=== PATIENT | female | born 1985 ===

== ENCOUNTER → 2017-09-09 | Outpatient (CLI) | payer SELFPAY ==
--- NOTE | 2017-09-09 14:31 | Diagnostic Imaging Report ---
INDICATION: anatomy survey. TECHNIQUE: Multiple real-time grayscale images were obtained over the gravid uterus. COMPARISON: None FINDINGS: The fetus is in vertex presentation. Placenta is posterior and fundal in location. There is no previa or abruption. anatomy survey was performed and the following structures were visualized and normal: Cerebral ventricles, cerebellum, cisterna magna, four-chamber heart, bladder, spine, and stomach. There is mild prominence of bilateral renal pelves. cardiac activity is seen at rate of 153 beats per minute. Biometrical measurements are as follows: Biparietal 6.5 cm, age 26 weeks 1 days. Head circumference 23.3 cm, age 25 weeks 3 days. Abdominal circumference 21.1 cm, age 25 weeks 5 days. Femur length 4.6 cm, age 25 weeks 2 days. Sonographic estimate age: 25 weeks 5 days. Sonographic estimated date of delivery: 12/18/17. Estimated Weight: 814 gm (+/- 119 gm). LMP percentile: 98%. heart rate: 153 beats per minute. number: 1 of 1. IMPRESSION: 1. Single live intrauterine . 2. anatomy survey is normal with the exception of mild prominence of the bilateral renal pelves. This may be physiologic. Short-term followup ultrasound for reassessment is advised. Dictated by: Dictated on workstation # [id number]
== END ==
LOC: RAD 10:13
PROVIDERS: ATTEND Family Medicine
DX: Z36.89 Encounter for other specified antenatal screening (principal); Z3A.25 25 weeks gestation of pregnancy
CPT/HCPCS: 76805

== ENCOUNTER 2017-11-17 06:56 | Inpatient (IN) | payer OTHER ==
[2017-11-17] VITALS (11 sets, daily range): BP systolic 106–125; BP diastolic 63–87
[~2017-11-17] VITALS: Ht 154.9 cm; Wt 63.0 kg
[2017-11-17] MEDS ORDERED: OXYTOCIN/NORMAL SALINE 500 ML IV ONE ×2 (07:49→08:50)
[2017-11-17] MEDS ORDERED: WITCH HAZEL(TUCKS) 40 EA JAR TOP PRN (08:45)
[2017-11-17] MEDS ORDERED: TETANUS,DIPTH,PERTUSS P/F (BOOSTRIX) 0.5 ML VIAL IM ONE (08:45)
[2017-11-17] MEDS ORDERED: BENZOCAINE/MENTHOL (DERMOPLAST) 56 ML CAN TP PRN (08:45)
[2017-11-17] MEDS ORDERED: IBUPROFEN 600 MG (MOTRIN) TAB PO ONE (08:50)
--- NOTE | 2017-11-17 08:53 | History & Physical-OB ---
OB - Chief Complaint & HPI Date/Time Date of Admission: Date of Admission: 11/17/17 Time Seen by Provider: 08:00 Chief Complaint/History OB-Reason for Admission/Chief: Labor Hx : 6 Hx Para: 4 Expected Date of Delivery: Dec 18, 2017 Gestational Age in Weeks: 35 Gestational Age in Days: 4 Other reason for admission: Pt presented to L&D at 35w4d. Pt reports contractions started last night, continued yoana all night. Denies LOF or vaginal bleeding. On presentation to L&D pt was complete w/ bulging bag. Unknown GBS status. care otherwise unremarkable. Allergies and Home Medications Allergies Coded Allergies: No Known Drug Allergies (Unverified , 11/17/17) Patient Home Medication List Home Medication List Reviewed: Yes OB - History Hx of Present Care: Yes Ultrasounds: Normal mid trimester US Obstetrical Complications: None Medical Complications: None Information Induced Hypertension: No Maternal Gestational Diabetes: No Hemorrhage: No Obstetrical History Hx : 6 Hx Para: 4 Hx # Term Pregnancies: 4 Hx Termination: No Hx Total # of Abortions (Spona: 1 Hx Multiple Gestation: No Hx Ectopic : No Hx Stillbirth: No Hx Complication: No Hx Induced Hypertens: No Hx Maternal Gestational Diabet: No Hx Hemorrhage: No Delivery History Hx Dystocia: No Hx Forceps Assisted Delivery: No Hx Vacuum Extraction Assisted: No Hx Placenta Abnormality: No Hx Distress: No Hx Large For Gestational Age I: No Hx Small for Gestational Age I: No Hx Section: No Hx Vaginal Delivery Post C-Sec: No Hx Blood Disorders: No Adverse Rxn to Tranfusion: No Patient Past Medical History Hx of post- depression Social History/Family History HIV/AIDS: No Recent Infectious Disease Expo: No Sexually Transmitted Disease: No Alcohol Use: Denies Use Recreational Drug Use: No Immunizations Rubella: immune RPR/VDRL: Negative GBS Status: Unknown HBsAG: Negative OB - Admission Exam Physical Exam Vitals: Vital Signs 11/17/17 08:40 Temp 97.0 Pulse 88 Resp 18 B/P (MAP) 125/87 (100) O2 Delivery Room Air Cervical Dilatation: 10cm Effacement: 100% Membranes: Intact Heart Rate: 140's Accelerations: Accelerations Present Decelerations: No Decelerations Contractions on Admission: < 5 Minutes Apart OB - Assessment/Plan/Diagnosis Assessment Assessment: active labor, labor (35w4d) Admission Dx 32yo at 35w4d spontaneous onset of labor GBS Unknown Admission Status: Inpatient Order (span 2 midnights) Reason for Inpatient Admission: Labor and delivery Plan Plan: Expectant Management Other Plan delivery per ADAM Ziegler DO Nov 17, 2017 08:52
--- NOTE | 2017-11-17 09:09 | OB Labor & Delivery Record ---
Vag Delivery Note Vag Delivery Note Date of Delivery: 11/17/17 @ 0813 Preoperative Diagnosis: Kirsty Bingham is a (32 /Para 6 / 4, Gestational Age (wks)35 that presented to L&D in active labor. Postoperative Diagnosis: Same Surgeon: NED RITCHIE Supervisor [place] Repair: None Anesthesia: None Delivery Type: Findings: Male infant, normal placenta, Unknown GBS Viable Male infant, apgars 7/8, weight 5#6 Lacerations: None Intact placenta with 3 vessel cord. No nuchal cord, body cord or shoulder dystocia Estimated Blood Loss: 100 ml Complications: None Condition: Stable Description of Procedure: The patient is a 32 yo G6 now P5 who presented in active labor. She was admitted and informed consent was obtained. Her labor course was remarkable for unknown GBS. She progressed to complete dilatation and began to push. She was then set up for delivery. The 's head was delivered atraumatically in the LOP position. The shoulders and remainder of the 's body were then delivered without difficulty. Upon delivery, the head was held below the level of the perineum and the mouth and nares were bulb suctioned. The cord was doubly clamped and cut by FOB and the was handed off to the pediatric staff. An intact placenta with 3-vessel cord delivered via Hazel and there was found to be minimal bleeding.~ Vigorous fundal massage was performed and the fundus was found to be firm. IV oxytocin was given. Examination of the vagina and perineum revealed a no lacerations. Sponge, instrument and needle counts were correct. Mom and baby were both in stable condition in the labor suite. Vitals - Labs Vital Signs - I&O Vital Signs Date Time Temp Pulse Resp B/P (MAP) Pulse Ox O2 Delivery O2 Flow Rate FiO2 11/17/17 08:40 97.0 88 18 125/87 (100) Room Air NED RITCHIE MD Nov 17, 2017 09:09
--- OUTSIDE RECORDS SUMMARY | 2017-11-17 09:24 | XMS REPORT ---
Author Author ASHLEY WILSON Organization [facility] Address [address] [place] [address] Care Team Providers Care Wagon Driver Salesperson Name Role Phone ASHLEY WILSON Unavailable PROBLEMS Type Condition ICD9-CM Code VSD94-NA Code Onset Dates Condition Status SNOMED Code Problem Dental examination Z01.20 Active 544177695 Problem Periodontitis K05.30 Active 42658070 ALLERGIES No Known Allergies SOCIAL HISTORY Never Assessed PLAN OF CARE Activity Details Follow Up if not improving with pcp Reason: VITAL SIGNS Weight 138.4 lbs 2016-11-30 Temperature 100.7 degrees Fahrenheit 2016-11-30 Heart Rate 92 bpm 2016-11-30 Respiratory Rate 20 2016-11-30 Blood pressure systolic 108 mmHg 2016-11-30 Blood pressure diastolic 64 mmHg 2016-11-30 MEDICATIONS Medication Instructions Dosage Frequency Start Date End Date Duration Status Augmentin 875-125 mg Orally every 12 hrs 1 tablet 12h Nov,Nov 10 day(s) Active RESULTS No Results PROCEDURES Procedure Date Ordered Result Body Site ROCEPHIN 1 GM (IM) November 30, 2016 THER/PROPH/DIAG INJ, SC/IM November 30, 2016 TORADOL (IM) 60 MG/2ML (UP TO 15 MG) November 30, 2016 IMMUNIZATIONS Vaccine Route Administration Date Status ROCEPHIN 1 GM (IM) IM Intramuscular November 30, 2016 Administered TORADOL (IM) 60 MG/2ML (UP TO 15 MG) IM Intramuscular November 30, 2016 Administered
[2017-11-17] MEDS: IBUPROFEN 600 MG (MOTRIN) TAB PO SCH ×3 (09:28→21:21)
[2017-11-17 13:50] LABS: BASOPHILS % (AUTO) 0 % (0-10); EOSINOPHILS # (AUTO) 0.1 10^3/uL (0.0-0.3); EOSINOPHILS % (AUTO) 1 % (0-10); HEMATOCRIT 38 % (35-52); HEMOGLOBIN 12.8 G/DL (11.5-16.0); LYMPHOCYTES % (AUTO) 16 % (12-44); MEAN CORPUSCULAR HEMOGLOBIN 30 PG (25-34); MEAN CORPUSCULAR HGB CONC 34 G/DL (32-36); MEAN CORPUSCULAR VOLUME 89 FL (80-99); MEAN PLATELET VOLUME 11.4 FL (7.4-10.4); MONOCYTES # (AUTO) 0.6 X 10^3 (0.0-1.0); MONOCYTES % (AUTO) 5 % (0-12); NEUTROPHILS % (AUTO) 79 % (42-75); PLATELET COUNT 240 10^3/uL (130-400); RED BLOOD COUNT 4.23 10^6/uL (4.35-5.85); RED CELL DISTRIBUTION WIDTH 13.5 % (10.0-14.5); WHITE BLOOD COUNT 12.7 10^3/uL (4.3-11.0)
[2017-11-17] MEDS ORDERED: CATHETER FLUSH 10 ML SYR IV SCH (14:00)
[2017-11-18] MEDS: IBUPROFEN 600 MG (MOTRIN) TAB PO SCH (03:36)
[2017-11-18 03:37] VITALS: BP 97/63
[2017-11-18 05:30] LABS: BASOPHILS % (AUTO) 0 % (0-10); EOSINOPHILS # (AUTO) 0.2 10^3/uL (0.0-0.3); EOSINOPHILS % (AUTO) 1 % (0-10); HEMATOCRIT 33 % (35-52); HEMOGLOBIN 11.3 G/DL (11.5-16.0); LYMPHOCYTES # (AUTO) 2.4 X 10^3 (1.0-4.0); LYMPHOCYTES % (AUTO) 20 % (12-44); MEAN CORPUSCULAR HEMOGLOBIN 31 PG (25-34); MEAN CORPUSCULAR HGB CONC 34 G/DL (32-36); MEAN CORPUSCULAR VOLUME 89 FL (80-99); MEAN PLATELET VOLUME 11.2 FL (7.4-10.4); MONOCYTES # (AUTO) 0.9 X 10^3 (0.0-1.0); MONOCYTES % (AUTO) 8 % (0-12); NEUTROPHILS # (AUTO) 8.4 X 10^3 (1.8-7.8); NEUTROPHILS % (AUTO) 71 % (42-75); PLATELET COUNT 212 10^3/uL (130-400); RED BLOOD COUNT 3.71 10^6/uL (4.35-5.85); RED CELL DISTRIBUTION WIDTH 13.3 % (10.0-14.5); WHITE BLOOD COUNT 11.9 10^3/uL (4.3-11.0)
[2017-11-18] MEDS ORDERED: PRENATAL VITAMIN 1 EA TAB PO SCH (07:00)
[2017-11-18 08:44] VITALS: BP 106/76
[2017-11-18] MEDS ORDERED: PREN-37 PO (08:48)
--- NOTE | 2017-11-18 09:07 | Discharge Summary ---
Diagnosis/Chief Complaint Date of Admission Nov 17, 2017 at 06:57 Date of Discharge Nov 18, 2017 Admission Diagnosis Admission Diagnosis 32yo at 35w4d spontaneous onset of labor GBS Unknown Discharge Diagnosis 32yo G6 now P5 at 35w4d spontaneous onset of labor s/p precipitous vaginal delivery GBS Unknown Discharge Summary-OBS Procedures None. Discharge Physical Examination Allergies: Coded Allergies: No Known Drug Allergies (Unverified , 11/17/17) Vitals & I&Os Vital Sign - Last 12Hours Date Time Temp Pulse Resp B/P (MAP) Pulse Ox O2 Delivery O2 Flow Rate FiO2 11/18/17 08:44 97.1 72 16 106/76 (86) 99 Room Air General Appearance: Alert, Oriented X3, Cooperative Abdominal: Normal Bowel Sounds (uterus -1) Psych/Mental Status: Mood NL Hospital Course Routine care; baby transferred to [facility] due to RDS Labs Laboratory Tests 11/18/17 05:10: White Blood Count 11.9H, Red Blood Count 3.71L, Hemoglobin 11.3L, Hematocrit 33L , Mean Corpuscular Volume 89, Mean Corpuscular Hemoglobin 31, Mean Corpuscular Hemoglobin Concent 34, Red Cell Distribution Width 13.3, Platelet Count 212, Mean Platelet Volume 11.2H, Neutrophils (%) (Auto) 71, Lymphocytes (%) (Auto) 20 , Monocytes (%) (Auto) 8, Eosinophils (%) (Auto) 1, Basophils (%) (Auto) 0, Neutrophils # (Auto) 8.4H, Lymphocytes # (Auto) 2.4, Monocytes # (Auto) 0.9, Eosinophils # (Auto) 0.2, Basophils # (Auto) 0.0 Discharge Instructions to patient/family Please see electronic discharge instructions given to patient. Discharge Medications Reviewed and agree with Discharge Medication list on patient's Discharge Instruction sheet Clinical Quality Measures DVT/VTE Risk/Contraindication: Risk Factor Score Per Nursin RFS Level Per Nursing on Admit: 1=Low/No VTE PPX Copy Copies To 1: NED RITCHIE MD, LINDA K DO Nov 18, 2017 09:07
[2017-11-18] MEDS ORDERED: IBUP-1773 PO (09:10)
--- NOTE | 2017-11-18 09:12 | Discharge Instructions ---
Discharge Inst-Women's Serv Depart Medications New, Converted or Re-Newed RX: Other (may take over the counter) Follow Up/Instructions Goal/Follow Up: Follow-up with Dr. Sewell in 6 weeks Activity Activity: Activity as Tolerated Nothing Inside Vagina: No Douching, No [place], No Tampons Diet Discharge Diet: No Restrictions Symptoms to Report to : Bleeding Excessive, Pain Increased, Fever Over 101 Degrees F, Vaginal Bleeding Increase, Vaginal Discharge Foul, Shortness of Breath For Any Problems or Questions: Contact Your Physician ADAM SELBY DO Nov 18, 2017 09:12
[2017-11-18] MEDS ORDERED: INFLUENZA TRIvalent 2017-2018 0.5 ML/45 MCG SYR IM ONE (11:05)
== END 2017-11-18 11:05 | disposition home or self-care (01) | DRG 775 ==
LOC: LDRP 06:56 → WSo 06:56 → LDRP 06:57
PROVIDERS: ADMIT Family Medicine; ATTEND Family Medicine
PROC: 10E0XZZ Delivery of Products of Conception, External Approach (ICD-10-PCS; principal; 2017-11-17)
DX: O60.14X0 Preterm labor third trimester with preterm delivery third trimester, not applicable or unspecified (principal); O62.3 Precipitate labor; Z3A.35 35 weeks gestation of pregnancy; Z37.0 Single live birth
CPT/HCPCS: 36415; 85025; 86850; 86900; 86901; 99212

== ENCOUNTER → 2018-07-13 | Outpatient (CLI) | payer OTHER ==
[~2018-07-13] MED LIST: IBUP-1773 PO; PREN-37 PO
--- NOTE | 2018-07-13 16:39 | Diagnostic Imaging Report ---
INDICATION: Second trimester . TECHNIQUE: Multiple real-time grayscale images were obtained over the gravid uterus. COMPARISON: None during this . FINDINGS: A single live intrauterine fetus is seen measuring at 20 weeks 4 days in size by composite measurements. Sonographic EDC is 11/26/2018. The fetus is in cephalic presentation. Amniotic fluid appears normal. Placenta is grade 1 and anterior with no evidence of previa. heart rate is 142 beats per minute. Cervical length is 3.4 cm. Maternal adnexa could not be visualized. survey showed no abnormal findings. Normal-appearing kidneys, bladder, stomach, and intracranial ventricles are noted. Normal-appearing four-chamber heart view and three-vessel cord and cord insertion are noted. Views of the spine were unremarkable. Biometrical measurements are as follows: Biparietal 4.92 cm, age 21 weeks 0 days. Head circumference 17.65 cm, age 20 weeks 1 days. Abdominal circumference 14.96 cm, age 20 weeks 2 days. Femur length 3.33 cm, age 20 weeks 3 days. Sonographic estimate age: 20 weeks 4 days. Sonographic estimated date of delivery: 11/26/18. Estimated Weight: 346 gm (+/- 51 gm). LMP percentile: 8%. heart rate: 142 beats per minute. number: 1 of 1. IMPRESSION: Single live intrauterine fetus measuring 20 weeks 4 days in size as described above with no detectable abnormalities. Dictated by: Dictated on workstation # [id number]
== END ==
LOC: RAD 14:58
PROVIDERS: ATTEND Family Medicine
DX: Z34.82 Encounter for supervision of other normal pregnancy, second trimester (principal); Z3A.20 20 weeks gestation of pregnancy
CPT/HCPCS: 76805

== ENCOUNTER 2018-11-25 23:02 | Inpatient (IN) | payer OTHER ==
[~2018-11-25] VITALS: Ht 160 cm; Wt 78.7 kg
--- NOTE | 2018-11-25 23:10 | NUR ---
Pt arrives ambulatory to unit accompanied by medical social consultant friend, , and child. Pt to room, oriented to call system and surroundings, up supplying u.a, assessments to follow.
[2018-11-25] MEDS ORDERED: LACTATED RINGERS 1,000 ML IV ONE (23:28)
[2018-11-25] MEDS ORDERED: OXYTOCIN/NORMAL SALINE 500 ML IV ONE (23:28)
[2018-11-25] MEDS ORDERED: LACTATED RINGERS 1,000 ML IV SCH (23:59)
[2018-11-26] VITALS (13 sets, daily range): BP systolic 99–122; BP diastolic 46–77
[2018-11-26] MEDS ORDERED: MINERAL OIL CONCENTRATE 99.9% 15 ML UDC TOP PRN
[2018-11-26 00:07] LABS: BASOPHILS % (AUTO) 0 % (0-10); EOSINOPHILS # (AUTO) 0.1 10^3/uL (0.0-0.3); EOSINOPHILS % (AUTO) 1 % (0-10); HEMATOCRIT 34 % (35-52); HEMOGLOBIN 11.3 G/DL (11.5-16.0); LYMPHOCYTES # (AUTO) 2.1 X 10^3 (1.0-4.0); LYMPHOCYTES % (AUTO) 16 % (12-44); MEAN CORPUSCULAR HEMOGLOBIN 29 PG (25-34); MEAN CORPUSCULAR HGB CONC 33 G/DL (32-36); MEAN CORPUSCULAR VOLUME 87 FL (80-99); MEAN PLATELET VOLUME 11.4 FL (7.4-10.4); MONOCYTES # (AUTO) 0.9 X 10^3 (0.0-1.0); MONOCYTES % (AUTO) 7 % (0-12); NEUTROPHILS # (AUTO) 9.5 X 10^3 (1.8-7.8); NEUTROPHILS % (AUTO) 76 % (42-75); PLATELET COUNT 240 10^3/uL (130-400); RED CELL DISTRIBUTION WIDTH 15.4 % (10.0-14.5); WHITE BLOOD COUNT 12.6 10^3/uL (4.3-11.0)
--- NOTE | 2018-11-26 00:10 | History & Physical-OB ---
OB - Chief Complaint & HPI Date/Time Date of Admission: Date of Admission: Date seen by a Provider: Nov 26, 2018 Time Seen by a Provider: 00:05 Chief Complaint/History OB-Reason for Admission/Chief: Onset of Labor Hx : 7 Hx Para: 4115 Expected Date of Delivery: Nov 28, 2018 Gestational Age in Weeks: 39 Gestational Age in Days: 5 Admission Nurse Assessment Rev: Yes History of Labs A+, antibody neg, RI. Hep B/HIV/RPR NR. GC/chlamydia neg. Low TSH, normal free T4 and negative TSI. Penta screen normal/low risk. 1 hour glucola negative. GBS neg. Other Started having contractions closer in the evening, having more discharge all day and some small bleeding. Allergies and Home Medications Allergies Coded Allergies: No Known Drug Allergies (Unverified , 11/17/17) Home Medications Vit/Iron Fumarate/FA 1 Each Tablet, 1 EACH PO DAILY, (Reported) Patient Home Medication List Home Medication List Reviewed: Yes OB - History Hx of Present Care: Yes Ultrasounds: Abnormal US findings (20 week US with EFW 8%, repeat at 26 weeks EFW 34%. Repeat at 37 weeks with nml growth but possibility of cleft lip not able to clearly evaluate.) Obstetrical Complications: Other (History of delivery, on progesterone injections this until 37 weeks) Medical Complications: Other (subclinical hypothyroidism) Information Induced Hypertension: No Maternal Gestational Diabetes: No Hemorrhage: No Obstetrical History Hx : 7 Hx Para: 5 Hx # Term Pregnancies: 4 Hx # Pregnancies: 1 Number of Living Children: 5 Hx Termination: No Hx Total # of Abortions (Spona: 1 Hx Multiple Gestation: No Hx Ectopic : No Hx Stillbirth: No Hx Complication: No Hx Induced Hypertens: No Hx Maternal Gestational Diabet: No Hx Hemorrhage: No Delivery History Hx Dystocia: No Hx Forceps Assisted Delivery: No Hx Vacuum Extraction Assisted: No Hx Placenta Abnormality: No Hx Distress: No Hx Large For Gestational Age I: No Hx Small for Gestational Age I: No Hx Section: No Hx Vaginal Delivery Post C-Sec: No Hx Blood Disorders: No Adverse Rxn to Tranfusion: No Patient Past Medical History Hx of post- depression Social History/Family History HIV/AIDS: No Recent Infectious Disease Expo: No Sexually Transmitted Disease: No Alcohol Use: Denies Use Recreational Drug Use: No Smoking Cessation: Never smoker Immunizations Hepatitis A: No Hepatitis B: No Tetanus Booster (TDap): Less than 5yrs (09/25/2018) Rubella: immune RPR/VDRL: Negative GBS Status: Negative HBsAG: Negative OB - Admission Exam Physical Exam Cervical Dilatation: 7cm Membranes: Intact Heart Rate: 140's Decelerations: No Decelerations Short Term Variability: Present Fdc Variability: Average (6-25) Contractions on Admission: < 5 Minutes Apart OB - Assessment/Plan/Diagnosis Assessment Assessment: active labor Admission Dx Active labor at full term Admission Status: Inpatient Order (span 2 midnights) Reason for Inpatient Admission: Labor, delivery and course Plan Plan: Expectant Management FREDI CASTILLO MD Nov 26, 2018 00:10
[2018-11-26] MEDS ORDERED: LIDOCAINE/EPI 2% 1:200,00 (XYLOCAINE) 10 ML VIAL ONE (01:08)
--- NOTE | 2018-11-26 01:40 | OB Labor & Delivery Record ---
Vag Delivery Note Vag Delivery Note Date of Delivery: 11/26/18 Preoperative Diagnosis: Kirsty Bingham is a 33 /Para 7 / 5, Gestational Age (wks)39with 5 days Postoperative Diagnosis: Same Surgeon: FREDI CASTILLO Anesthesia: None Delivery Type: Spontaneous vaginal Findings: Viable male infant, apgars 9/9, weight 7#4 Lacerations: first degree perineal Intact placenta with 3 vessel cord. No nuchal cord, body cord or shoulder dystocia Estimated Blood Loss: 250 ml Complications: None Condition: Stable Description of Procedure: The patient is a 33 year old female who presented in active labor. She was admitted and informed consent was obtained. Her labor course was unremarkable. She progressed to complete dilatation and began to push. She was then set up for delivery. The infant's head was delivered atraumatically in the ELADIO position. The shoulders and remainder of the 's body were then delivered without difficulty. Upon delivery, the infant was vigorous and placed on maternal abdomen. After a delay the cord was doubly clamped and cut and the was handed off to the pediatric staff. An intact placenta with 3-vessel cord delivered via Hazel and there was found to be minimal bleeding.~ Vigorous fundal massage was performed and the fundus was found to be firm. IV oxytocin was given. Examination of the vagina and perineum revealed a first degree perineal laceration repaired in the usual fashion with 3 -0 rapide suture. Following the repair, sponge, instrument and needle counts were correct. Mom and baby were both in stable condition in the labor suite. Vitals - Labs Labs Laboratory Tests 11/25/18 23:40: White Blood Count 12.6H, Red Blood Count 3.91L, Hemoglobin 11.3L, Hematocrit 34L , Mean Corpuscular Volume 87, Mean Corpuscular Hemoglobin 29, Mean Corpuscular Hemoglobin Concent 33, Red Cell Distribution Width 15.4H, Platelet Count 240, Mean Platelet Volume 11.4H, Neutrophils (%) (Auto) 76H, Lymphocytes (%) (Auto) 16, Monocytes (%) (Auto) 7, Eosinophils (%) (Auto) 1, Basophils (%) (Auto) 0, Neutrophils # (Auto) 9.5H, Lymphocytes # (Auto) 2.1, Monocytes # (Auto) 0.9, Eosinophils # (Auto) 0.1, Basophils # (Auto) 0.0 FREDI CASTILLO MD Nov 26, 2018 01:40
--- OUTSIDE RECORDS SUMMARY | 2018-11-26 01:42 | XMS REPORT ---
Author Author ANNA FREDI Organization [facility] Address [address] [place] [address] Care Team Providers Care Perianesthesia Rn Name Role Phone ANNATORREYFREDI Unavailable PROBLEMS Type Condition ICD9-CM Code TMP01-BF Code Onset Dates Condition Status SNOMED Code Problem Small fetus P05.00 Active 176345871 Problem Missed period N92.6 Active 21343599 Problem Subclinical hyperthyroidism E05.90 Active 492085543 Problem History of delivery, currently O09.219 Active 130421959 Problem Periodontitis K05.30 Active 80976504 Problem care, subsequent in second trimester Z34.82 Active 511253722 ALLERGIES No Information ENCOUNTERS Encounter Location Date Diagnosis [facility] [address] [address] Aug, [facility] [address] [address] Aug, History of delivery, currently O09.219 [facility] [address] [address]26- [address]874 Aug, Small fetus P05.00 ; History of delivery, currently O09.219 ; Second trimester Z34.92 ; 24 weeks gestation of Z3A.24 and Subclinical hyperthyroidism E05.90 [facility] [address] 37[address] Aug, [facility] [address] [address] Aug, History of delivery, currently O09.219 [facility] [address] 96681- 6844 Jul, History of delivery, currently O09.219 ; Second trimester Z34.92 ; 24 weeks gestation of Z3A.24 ; Subclinical hyperthyroidism E05.90 and Small fetus P05.00 [facility] [id number] [place] [address] 09604- 7420 Jul, History of delivery, currently O09.219 [facility] [id number] [place] [address] 09994- 7660 Jul, History of delivery, currently O09.219 [facility] [id number] [place] [address] 84144- 7031 Jun, Subclinical hyperthyroidism E05.90 [facility] [address] 19822- 0035 Jun, Subclinical hyperthyroidism E05.90 [facility] [id number] [place] [address] 30330- 3419 Jun, [facility] [address] 42407- 9[address] Jun, Second trimester Z34.92 ; History of delivery, currently O09.219 ; Subclinical hyperthyroidism E05.90 ; Encounter for immunization Z23 and 20 weeks gestation of Z3A.20 [facility] [id number] [place] [address] 54040- 9392 17 Jun, 2018 History of delivery, currently O09.219 [facility] [id number] [place] [address] 12947- 4114 Jun, [facility] [id number] [place] [address] 76397- 4216 Jun, [facility] [address] 72145- 8604 Jun, [facility] [id number] [place] [address] 89119- 1800 May, Normal in multigravida Z34.80 ; Second trimester Z34.92 ; Low TSH level R79.89 ; 16 weeks gestation of Z3A.16 and History of delivery, currently O09.219 [facility] [address] 11215- 1543 May, [facility] [address] 28189- 6572 May, [facility] [address] 75285- 1241 May, Normal in multigravida Z34.80 [facility] [address] 42590- 2354 Apr, Normal in multigravida Z34.80 [facility] [address] 61885- 7387 Apr, Normal in multigravida Z34.80 and 11 weeks gestation of Z3A.11 [facility] [address] 98797- 0817 Apr, [facility] [address] 60718- 2505 Apr, [facility] [address] [id number] Apr, Dental caries K02.9 [facility] [address] 42915[address] Apr, [facility] [address] 02[address]25 Apr, Oral infection K12.2 and Missed period N92.6 [facility] [address] 05645- 6921 Feb, [facility] [address] 23568- 0480 January, [facility] [address] 31249- 7121 Nov, [facility] [address] [address] Nov, Screening for deficiency anemia Z13.0 [facility] [id number] [place] [address] 83812- 9007 Nov, [facility] [id number] [place] [address] 85002- 4932 Nov, [facility] [id number] [place] [address] 57339- 9618 Nov, care in third trimester Z34.93 and 35 weeks gestation of Z3A.35 [facility] [id number] [place] [address] 62668- 7078 Oct, [facility] [id number] [place] [address] 64091- 1933 Oct, care in third trimester Z34.93 ; Encounter for immunization Z23 and 33 weeks gestation of Z3A.33 [facility] [id number] [place] [address] 37357- 0062 Sep, care in second trimester Z34.92 and 29 weeks gestation of Z3A.29 [facility] [address] [address] Aug, Dental examination Z01.20 [facility] [id number] [place] [address] 89861- 2499 Aug, Dental examination Z01.20 [facility] [id number] [place] [address] 41173- 8735 Aug, Second trimester Z34.92 and 14 weeks gestation of Z3A.14 [facility] [id number] [place] [address] 72360- 7871 Aug, [facility] [address] [place] [address] 37115- 5359 Jul, care in first trimester Z34.91 and Normal in multigravida Z34.80 [facility] [id number] [place] [address] 17904- 5757 Jul, [facility] [id number] [place] [address] 60753- 5886 Jul, [facility] [id number] [place] [address] 64599- 8549 Jun, [facility] [id number] [place] [address] [id number] Jun, Dental examination Z01.20 [facility] [id number] [place] [address] [id number] Jun, Dental examination Z01.20 [facility] [id number] [place] [address] 34564- 7907 January, Dental examination Z01.20 [facility] [id number] [place] [address] 59571- 6461 Dec, Dental examination Z01.20 [facility] [id number] [place] [address] 81441- 2086 Dec, Dental examination Z01.20 [facility] [id number] [place] [address] 00166- 0087 Nov, Dental examination Z01.20 and Periodontitis K05.30 [facility] [id number] [place] [address] 44056- 7153 Nov, Acute mastitis of left breast N61.0 and Acute nonintractable headache, unspecified headache type R51 [facility] [id number] [place] [address] 69280- 1054 Nov, IMMUNIZATIONS No Known Immunizations SOCIAL HISTORY Never Assessed REASON FOR VISIT U/S OB follow up ULTRASOUND WALK-IN. A.BOOKLESS RDMS RVT PLAN OF CARE Activity Details Pending Test Ultrasound : OB F/U (IN-HOUSE) VITAL SIGNS MEDICATIONS Unknown Medications RESULTS No Results PROCEDURES Procedure Date Ordered Result Body Site OB US, FOLLOW-UP, PER FETUS Aug 25, 2018 INSTRUCTIONS MEDICATIONS ADMINISTERED No Known Medications MEDICAL (GENERAL) HISTORY Type Description Date Medical History denies Hospitalization History Anemia 02/2014
--- OUTSIDE RECORDS SUMMARY | 2018-11-26 01:42 | XMS REPORT ---
Author Author ANNA FREDI Organization [facility] Address [address] [place] [address] Care Team Providers Care Roof Tiler Name Role Phone ANNATORREYFREDI Unavailable PROBLEMS Type Condition ICD9-CM Code EMF16-IK Code Onset Dates Condition Status SNOMED Code Problem Small fetus P05.00 Active 215734673 Problem Missed period N92.6 Active 85450374 Problem Subclinical hyperthyroidism E05.90 Active 733724404 Problem History of delivery, currently O09.219 Active 720021294 Problem Periodontitis K05.30 Active 95901852 Problem care, subsequent in second trimester Z34.82 Active 816440309 ALLERGIES No Information ENCOUNTERS Encounter Location Date Diagnosis [facility] [address] 80267- 8782 Aug, [facility] [address] 94878- 3925 Aug, History of delivery, currently O09.219 [facility] [address] 21924- 5023 Jul, History of delivery, currently O09.219 ; Second trimester Z34.92 ; 24 weeks gestation of Z3A.24 ; Subclinical hyperthyroidism E05.90 and Small fetus P05.00 [facility] [facility] [id number] [place] [address] 41308- 0370 15 Jul, 2018 History of delivery, currently O09.219 [facility] [address] 53562- 2490 08 Jul, 2018 History of delivery, currently O09.219 [facility] [address] 17007- 9947 Jun, Subclinical hyperthyroidism E05.90 [facility] [id number] [place] [address] 03901- 9727 Jun, Subclinical hyperthyroidism E05.90 [facility] [id number] [place] [address] 16081- 8785 Jun, [facility] [id number] [place] [address] 27095- 5650 Jun, Second trimester Z34.92 ; History of delivery, currently O09.219 ; Subclinical hyperthyroidism E05.90 ; Encounter for immunization Z23 and 20 weeks gestation of Z3A.20 [facility] [id number] [place] [address] 18539- 2035 Jun, History of delivery, currently O09.219 [facility] [place] [id number] [place] [address] 86816- 6256 Jun, [facility] [id number] [place] [address] 87025- 2494 Jun, [facility] [id number] [place] [address] 64151- 2819 Jun, [facility] [place] [id number] [place] [address] 90452- 6317 May, Normal in multigravida Z34.80 ; Second trimester Z34.92 ; Low TSH level R79.89 ; 16 weeks gestation of Z3A.16 and History of delivery, currently O09.219 [facility] [id number] [place] [address] 69971- 2073 May, [facility] [id number] [place] [address] 61525- 4843 May, [facility] [id number] [place] [address] 64062- 2586 May, Normal in multigravida Z34.80 [facility] [id number] [place] [address] 15222- 5935 Apr, Normal in multigravida Z34.80 [facility] [id number] [place] [address] 85511- 8589 Apr, Normal in multigravida Z34.80 and 11 weeks gestation of Z3A.11 [facility] [id number] [place] [address] 65794- 7956 Apr, [facility] [address] [id number] [place] [address] 78481- 0032 Apr, [facility] [id number] [place] [address] [id number] Apr, Dental caries K02.9 [facility] [id number] [place] [address] 20850- 8108 Apr, [facility] [id number] [place] [address] 07813 -9067 Apr, Oral infection K12.2 and Missed period N92.6 [facility] [id number] [place] [address] 24128- 2829 Feb, [facility] [id number] [place] [address] 90112- 9092 January, [facility] [id number] [place] [address] 56883- 0986 Nov, [facility] [id number] [place] [address] 93540- 4860 Nov, Screening for deficiency anemia Z13.0 [facility] [id number] [place] [address] 61448- 6573 Nov, [facility] [address] 74680- 7960 Nov, [facility] [id number] [place] [address] 60265- 0772 Nov, care in third trimester Z34.93 and 35 weeks gestation of Z3A.35 [facility] [address], [place] [address]- [address]26 Oct, [facility] [id number] [place] [address] 73802- 9731 Oct, care in third trimester Z34.93 ; Encounter for immunization Z23 and 33 weeks gestation of Z3A.33 [place] [address] [place] [address] 76407- 9265 Sep, care in second trimester Z34.92 and 29 weeks gestation of Z3A.29 [place] [id number] [place] [address] 39476- 9098 19 Aug, 2017 Dental examination Z01.20 [place] [id number] [place] [address] 80821- 3251 Aug, Dental examination Z01.20 [facility] [id number] [place] [address] 75200- 4860 Aug, Second trimester Z34.92 and 14 weeks gestation of Z3A.14 [place] [address] [place] [address] 17741- 8297 Aug, [place] [id number] [place] [address] 68531- 3287 Jul, care in first trimester Z34.91 and Normal in multigravida Z34.80 [place] [address] [place] [address] 43515- 6231 Jul, [facility] [address] [place] [address] 69287- 7705 Jul, [facility] [id number] [place] [address] 94962- 9638 Jun, [facility] [address] [id number] Jun, Dental examination Z01.20 [facility] [id number] [id number] Jun, Dental examination Z01.20 [facility] [address] [address] January, Dental examination Z01.20 [facility] [address] [address]- 7950 Dec, Dental examination Z01.20 [facility] [address] [address]31 Dec, Dental examination Z01.20 [place] [address] [address]- 2121 Nov, Dental examination Z01.20 and Periodontitis K05.30 [place] [address], [place] [address]- 5626 Nov, [place] [address], [place] [address]- 6907 Nov, Acute mastitis of left breast N61.0 and Acute nonintractable headache, unspecified headache type R51 IMMUNIZATIONS Vaccine Route Administration Date Status TUAN 275 MG/1.1ML (PT'S OWN) SC Subcutaneous Aug 18, 2018 Administered SOCIAL HISTORY Never Assessed REASON FOR VISIT Injection--tcuppettRN PLAN OF CARE Activity Details Follow Up 1 Week Reason: VITAL SIGNS MEDICATIONS Unknown Medications RESULTS No Results PROCEDURES Procedure Date Ordered Result Body Site TUAN 275 MG/1.1ML (PT'S OWN) Aug 18, 2018 THER/PROPH/DIAG INJ, SC/IM Aug 18, 2018 INSTRUCTIONS MEDICATIONS ADMINISTERED No Known Medications MEDICAL (GENERAL) HISTORY Type Description Date Medical History denies Hospitalization History Anemia 02/2014
--- OUTSIDE RECORDS SUMMARY | 2018-11-26 01:42 | XMS REPORT ---
Author Author ANNA FREDI Organization [facility] Address [address] [place] [address] Care Team Providers Care Vulcanizing Machine Operator Name Role Phone ANNATORREYFREDI Unavailable PROBLEMS Type Condition ICD9-CM Code BZB82-NI Code Onset Dates Condition Status SNOMED Code Problem Small fetus P05.00 Active 371643379 Problem Missed period N92.6 Active 56486900 Problem Subclinical hyperthyroidism E05.90 Active 769908445 Problem History of delivery, currently O09.219 Active 848904172 Problem Periodontitis K05.30 Active 30653122 Problem care, subsequent in second trimester Z34.82 Active 702998822 ALLERGIES No Information ENCOUNTERS Encounter Location Date Diagnosis [facility] [address] [address] -[address]483 Aug, [facility] [address] 87541- 1891 Aug, History of delivery, currently O09.219 [facility] [address] 33737- 4697 Aug, Small fetus P05.00 ; History of delivery, currently O09.219 ; Second trimester Z34.92 ; 24 weeks gestation of Z3A.24 and Subclinical hyperthyroidism E05.90 [facility] [address] 09704- 1344 Aug, [facility] [address] 63222- 7435 Aug, History of delivery, currently O09.219 [facility] [address] 86581- 0929 Jul, History of delivery, currently O09.219 ; Second trimester Z34.92 ; 24 weeks gestation of Z3A.24 ; Subclinical hyperthyroidism E05.90 and Small fetus P05.00 [place] [id number] [place] [address] 44245- 1358 Jul, History of delivery, currently O09.219 [facility] [id number] [place] [address] 31816- 3967 Jul, History of delivery, currently O09.219 [facility] [id number] [place] [address] 54779- 3120 Jun, Subclinical hyperthyroidism E05.90 [place] [address] 05529- 6050 Jun, Subclinical hyperthyroidism E05.90 [place] [id number] [place] [address] 37426- 4157 Jun, [place] [address] 19621- 8608 Jun, Second trimester Z34.92 ; History of delivery, currently O09.219 ; Subclinical hyperthyroidism E05.90 ; Encounter for immunization Z23 and 20 weeks gestation of Z3A.20 [place] [id number] [place] [address] 38840- 7316 17 Jun, 2018 History of delivery, currently O09.219 [place] [address] [id number] [place] [address] 13775- 3699 Jun, [place] [address] [id number] [place] [address] 96427- 1618 Jun, [place] [address] 93063- 9859 Jun, [place] [address] [id number] [place] [address] 95606- 3091 May, Normal in multigravida Z34.80 ; Second trimester Z34.92 ; Low TSH level R79.89 ; 16 weeks gestation of Z3A.16 and History of delivery, currently O09.219 [facility] [address] 77578- 9129 May, [facility] [address] 86069- 9635 May, [facility] [address] 11779- 0729 May, Normal in multigravida Z34.80 [facility] [address] 27817- 8960 Apr, Normal in multigravida Z34.80 [facility] [address] 61973- 2576 Apr, Normal in multigravida Z34.80 and 11 weeks gestation of Z3A.11 [facility] [address] 13223- 3816 Apr, [facility] [address] 73951- 1678 Apr, [facility] [address] [id number] Apr, Dental caries K02.9 [facility] [address] 60242- 7253 Apr, [facility] [address] 99638 -9800 Apr, Oral infection K12.2 and Missed period N92.6 [facility] [address] 46599- 8998 Feb, [facility] [address] 31331- 2046 January, [facility] [address] 10343- 5872 Nov, [place] [address] [address]- 7204 Nov, Screening for deficiency anemia Z13.0 [place] [address] [id number] [place] [address] 87093- 0108 Nov, [place] [address] [id number] [place] [address] 01036- 9478 Nov, [place] [address] [id number] [place] [address] 09168- 2583 Nov, care in third trimester Z34.93 and 35 weeks gestation of Z3A.35 [place] [address] [id number] [place] [address] 17805- 4791 Oct, [place] [address] [id number] [place] [address] 40550- 5967 Oct, care in third trimester Z34.93 ; Encounter for immunization Z23 and 33 weeks gestation of Z3A.33 [place] [id number] [place] [address] 61357- 7833 Sep, care in second trimester Z34.92 and 29 weeks gestation of Z3A.29 [place] [address] [address]- 7270 Aug, Dental examination Z01.20 [place] [id number] [place] [address] 53609- 5149 Aug, Dental examination Z01.20 [place] [id number] [place] [address] 35603- 7685 Aug, Second trimester Z34.92 and 14 weeks gestation of Z3A.14 [place] [id number] [place] [address] 36418- 6135 Aug, [place] [address] [place] [address] 77070- 3065 Jul, care in first trimester Z34.91 and Normal in multigravida Z34.80 [facility] [id number] [place] [address] 75369- 3581 Jul, [facility] [id number] [place] [address] 41891- 2824 Jul, [facility] [id number] [place] [address] [phone]- [phone] Jun, [facility] [address] [id number] Jun, Dental examination Z01.20 [facility] [id number] [place] [address] [id number] Jun, Dental examination Z01.20 [place] [address] [address]- [address] January, Dental examination Z01.20 [place] [address] 74694- 8470 Dec, Dental examination Z01.20 [place] [id number] [place] [address] 85447- [phone] Dec, Dental examination Z01.20 [place] [id number] [place] [address] [phone]- [phone] Nov, Dental examination Z01.20 and Periodontitis K05.30 [place] [id number] [place] [address] 87610- [phone] Nov, Acute mastitis of left breast N61.0 and Acute nonintractable headache, unspecified headache type R51 [place] [id number] [place] [address] [phone]- [phone] Nov, IMMUNIZATIONS Vaccine Route Administration Date Status TUAN 275 MG/1.1ML (PT'S OWN) SC Subcutaneous Aug 25, 2018 Administered SOCIAL HISTORY Never Assessed REASON FOR VISIT Isabela injection -- nirav baum PLAN OF CARE Activity Details Follow Up 1 Week Reason: VITAL SIGNS MEDICATIONS Medication Instructions Dosage Frequency Start Date End Date Duration Status Vitamin 27-0.8 MG Unknown RESULTS No Results PROCEDURES Procedure Date Ordered Result Body Site TUAN 275 MG/1.1ML (PT'S OWN) Aug 25, 2018 THER/PROPH/DIAG INJ, SC/IM Aug 25, 2018 INSTRUCTIONS MEDICATIONS ADMINISTERED No Known Medications MEDICAL (GENERAL) HISTORY Type Description Date Medical History denies Hospitalization History Anemia 02/2014
--- OUTSIDE RECORDS SUMMARY | 2018-11-26 01:43 | XMS REPORT ---
Author Author ANNA FREDI [facility] Address [address] [place] [address] Care Team Providers Care Choir Teacher Name Role Phone ANNATAZ CHILDSY Unavailable PROBLEMS Type Condition ICD9-CM Code EKN39-NV Code Onset Dates Condition Status SNOMED Code Problem Missed period N92.6 Active 15263081 Problem Periodontitis K05.30 Active 46238004 Problem Subclinical hyperthyroidism E05.90 Active 106163961 Problem History of delivery, currently O09.219 Active 290474215 Problem care, subsequent in second trimester Z34.82 Active 487281051 ALLERGIES No Information ENCOUNTERS Encounter Location Date Diagnosis [place] [id number] [place] [address] 25018- 7596 Jul, [place] [address] 06655- 3989 Jun, Subclinical hyperthyroidism E05.90 [place] [id number] [place] [address] 98414- 1280 Jun, Subclinical hyperthyroidism E05.90 [place] [id number] [place] [address] 13169- 7340 Jun, [place] [address] 10777- 5521 Jun, Second trimester Z34.92 ; History of delivery, currently O09.219 ; Subclinical hyperthyroidism E05.90 ; Encounter for immunization Z23 and 20 weeks gestation of Z3A.20 [place] [id number] [place] [address] 88391- 1495 17 Jun, 2018 History of delivery, currently O09.219 [place] [address] 34778- 8812 Jun, [facility] [address] [address] 5407 Jun, [facility] [id number] [place] [address] 79681- 3797 Jun, [facility] [id number] [place] [address] 87280- 4513 May, Normal in multigravida Z34.80 ; Second trimester Z34.92 ; Low TSH level R79.89 ; 16 weeks gestation of Z3A.16 and History of delivery, currently O09.219 [facility] [id number] [place] [address] 90294- 0385 May, [facility] [id number] [place] [address] 39162- 6341 May, [facility] [id number] [place] [address] 30804- 1666 May, Normal in multigravida Z34.80 [facility] [address] [place] [address] 67361- 5645 Apr, Normal in multigravida Z34.80 [facility] [address] [place] [address] 10727- 2049 Apr, Normal in multigravida Z34.80 and 11 weeks gestation of Z3A.11 [facility] [address] [place] [address] 92539- 9283 Apr, [facility] [address] [place] [address] 65967- 0655 Apr, [facility] [address] [place] [address] [id number] Apr, Dental caries K02.9 [facility] [address] [place] [address] 71504- 2989 Apr, [facility] [id number] [place] [address] 65551 -1939 Apr, Oral infection K12.2 and Missed period N92.6 [facility] [id number] [place] [address] 73591- 6246 Feb, [facility] [id number] [place] [address] 75793- 3026 January, [facility] [address] 70009- 9282 Nov, [facility] [address] 03095- 7313 Nov, Screening for deficiency anemia Z13.0 [place] [id number] [place] [address] 07234- 4289 Nov, [place] [address] 68232- 4274 Nov, [facility] [id number] [place] [address] 65014- 4046 Nov, care in third trimester Z34.93 and 35 weeks gestation of Z3A.35 [place] [id number] [place] [address] 50860- 8846 Oct, [facility] [id number] [place] [address] 56126- 7219 Oct, care in third trimester Z34.93 ; Encounter for immunization Z23 and 33 weeks gestation of Z3A.33 [place] [id number] [place] [address] 15459- 4137 Sep, care in second trimester Z34.92 and 29 weeks gestation of Z3A.29 [place] [id number] [place] [address] 28744- 4461 Aug, Dental examination Z01.20 [place] [id number] [place] [address] 15237- 0776 Aug, Dental examination Z01.20 [facility] [address] [address]- 6251 14 Aug, 2017 Second trimester Z34.92 and 14 weeks gestation of Z3A.14 [facility] [address] [facility] [id number] [address] 0676 14 Aug, 2017 [facility] [id number] [place] [address] 92125- 9267 Jul, care in first trimester Z34.91 and Normal in multigravida Z34.80 [facility] [id number] [place] [address] 20446- 7656 Jul, [facility] [id number] [place] [address] 61035- 7563 Jul, [facility] [id number] [place] [address] 29007- 9253 Jun, [facility] [id number] [place] [address] [id number] Jun, Dental examination Z01.20 [facility] [id number] [place] [address] [id number] Jun, Dental examination Z01.20 [facility] [id number] [place] [address] 80901- 1911 January, Dental examination Z01.20 [facility] [id number] [address]- 1946 Dec, Dental examination Z01.20 [facility] [id number] [address]- 0668 Dec, Dental examination Z01.20 [facility] [id number] [place] [address] 638988- 5526 Nov, Dental examination Z01.20 and Periodontitis K05.30 [facility] [id number] [place] [address] 22041- 3624 Nov, [facility] [address] [facility] [id number] [place] [address]- 3172 Nov, Acute mastitis of left breast N61.0 and Acute nonintractable headache, unspecified headache type R51 IMMUNIZATIONS No Known Immunizations SOCIAL HISTORY Never Assessed REASON FOR VISIT Mercedes Injection PLAN OF CARE VITAL SIGNS MEDICATIONS Unknown Medications RESULTS No Results PROCEDURES No Known procedures INSTRUCTIONS MEDICATIONS ADMINISTERED No Known Medications MEDICAL (GENERAL) HISTORY Type Description Date Medical History denies Hospitalization History Anemia 02/2014
--- OUTSIDE RECORDS SUMMARY | 2018-11-26 01:43 | XMS REPORT ---
Author Author ANNA FREDI [facility] Address [address] [place] [address] Care Team Providers Care Director Of Resource Development Name Role Phone ANNATAZ CHILDSY Unavailable PROBLEMS Type Condition ICD9-CM Code NME03-UJ Code Onset Dates Condition Status SNOMED Code Problem Missed period N92.6 Active 03710121 Problem Periodontitis K05.30 Active 34723291 Problem Subclinical hyperthyroidism E05.90 Active 045942776 Problem History of delivery, currently O09.219 Active 991425115 Problem care, subsequent in second trimester Z34.82 Active 336265635 ALLERGIES No Information ENCOUNTERS Encounter Location Date Diagnosis [place] [id number] [place] [address] 59004- 5920 Jul, [place] [address] 10177- 6207 Jun, Subclinical hyperthyroidism E05.90 [place] [id number] [place] [address] 92508- 6856 Jun, Subclinical hyperthyroidism E05.90 [place] [id number] [place] [address] 16702- 8213 Jun, [place] [address] 99622- 2826 Jun, Second trimester Z34.92 ; History of delivery, currently O09.219 ; Subclinical hyperthyroidism E05.90 ; Encounter for immunization Z23 and 20 weeks gestation of Z3A.20 [place] [id number] [place] [address] 83640- 9362 17 Jun, 2018 History of delivery, currently O09.219 [place] [address] 34406- 2510 Jun, [facility] [address] [address]- 6688 Jun, [facility] [id number] [place] [address] 39472- 0066 Jun, [facility] [id number] [place] [address] 18845- 2676 May, Normal in multigravida Z34.80 ; Second trimester Z34.92 ; Low TSH level R79.89 ; 16 weeks gestation of Z3A.16 and History of delivery, currently O09.219 [facility] [id number] [place] [address] 02388- 1229 May, [facility] [id number] [place] [address] 51807- 0761 May, [facility] [id number] [place] [address] 66372- 3095 May, Normal in multigravida Z34.80 [facility] [address] [place] [address] 90929- 2186 Apr, Normal in multigravida Z34.80 [facility] [address] [place] [address] 51161- 6962 Apr, Normal in multigravida Z34.80 and 11 weeks gestation of Z3A.11 [facility] [address] [place] [address] 17033- 1271 Apr, [facility] [address] [place] [address] 90420- 6724 Apr, [facility] [address] [place] [address] [id number] Apr, Dental caries K02.9 [facility] [address] [place] [address] 24372- 2233 Apr, [facility] [id number] [place] [address] 46118 -7668 Apr, Oral infection K12.2 and Missed period N92.6 [facility] [id number] [place] [address] 09939- 5819 Feb, [facility] [id number] [place] [address] 36337- 4394 January, [facility] [address] 59955- 2644 Nov, [facility] [address] 11439- 4818 Nov, Screening for deficiency anemia Z13.0 [place] [id number] [place] [address] 89574- 2609 Nov, [place] [address] 97387- 8912 Nov, [facility] [id number] [place] [address] 35537- 0597 Nov, care in third trimester Z34.93 and 35 weeks gestation of Z3A.35 [place] [id number] [place] [address] 81305- 5314 Oct, [facility] [id number] [place] [address] 72589- 7340 Oct, care in third trimester Z34.93 ; Encounter for immunization Z23 and 33 weeks gestation of Z3A.33 [place] [id number] [place] [address] 76223- 2979 Sep, care in second trimester Z34.92 and 29 weeks gestation of Z3A.29 [place] [id number] [place] [address] 02072- 0009 Aug, Dental examination Z01.20 [place] [id number] [place] [address] 92153- 5677 Aug, Dental examination Z01.20 [facility] [address] [address]- 8629 14 Aug, 2017 Second trimester Z34.92 and 14 weeks gestation of Z3A.14 [facility] [address] [facility] [id number] [address]- 2356 14 Aug, 2017 [facility] [id number] [place] [address] 37413- 3057 Jul, care in first trimester Z34.91 and Normal in multigravida Z34.80 [facility] [id number] [place] [address] 28841- 1036 Jul, [facility] [id number] [place] [address] 01878- 4797 Jul, [facility] [id number] [place] [address] 65825- 9655 Jun, [facility] [id number] [place] [address] [id number] Jun, Dental examination Z01.20 [facility] [address] [id number] [place] [address] [id number] Jun, Dental examination Z01.20 [facility] [id number] [place] [address] 10957- 3244 January, Dental examination Z01.20 [facility] [id number] [address]- 3346 Dec, Dental examination Z01.20 [facility] [id number] [address]- 0575 Dec, Dental examination Z01.20 [facility] [id number] [place] [address] 385681- 3766 Nov, Dental examination Z01.20 and Periodontitis K05.30 [facility] [id number] [place] [address] 56405- 9693 Nov, [facility] [address] [facility] [id number] [place] [address]- 1249 Nov, Acute mastitis of left breast N61.0 and Acute nonintractable headache, unspecified headache type R51 IMMUNIZATIONS Vaccine Route Administration Date Status FLULAVAL QUAD 0.5ML (6 MO & UP) 2018 IM Intramuscular Jul 07, 2018 Administered TUAN 275 MG/1.1ML (PT'S OWN) SC Subcutaneous Jul 07, 2018 Administered SOCIAL HISTORY Never Assessed REASON FOR VISIT OB 4wk f/u, ob urine dip, tuan injection-awoods PLAN OF CARE Activity Details Follow Up 4 Weeks, 4 Weeks, 4 Weeks Reason: Pending Test GC/CHLAM URINE (STATE) VITAL SIGNS Height 5'2" in 2018-07-07 Weight 149.8 lbs 2018-07-07 Temperature 98.0 degrees Fahrenheit 2018-07-07 Heart Rate 80 bpm 2018-07-07 Respiratory Rate 18 2018-07-07 BMI 27.40 kg/m2 2018-07-07 Blood pressure systolic 118 mmHg 2018-07-07 Blood pressure diastolic 64 mmHg 2018-07-07 MEDICATIONS Medication Instructions Dosage Frequency Start Date End Date Duration Status Vitamin 27-0.8 MG Active RESULTS No Results PROCEDURES Procedure Date Ordered Result Body Site URINE-NO MICRO Jul 07, 2018 TUAN 275 MG/1.1ML (PT'S OWN) Jul 07, 2018 FLULAVAL QUAD 0.5ML (6 MO AND UP) 2017Jul 07, 2018 No Charge Jul 07, 2018 SINGLE IMMUNIZATION ADMIN Jul 07, 2018 ASSAY THYROID STIM HORMONE Jul 07, 2018 THER/PROPH/DIAG INJ, SC/IM Jul 07, 2018 ASSAY OF FREE THYROXINE Jul 07, 2018 INSTRUCTIONS MEDICATIONS ADMINISTERED No Known Medications MEDICAL (GENERAL) HISTORY Type Description Date Medical History denies Hospitalization History Anemia 02/2014
--- OUTSIDE RECORDS SUMMARY | 2018-11-26 01:43 | XMS REPORT ---
Author Author ANNA FREDI [facility] Address [address] [place] [address] Care Team Providers Care Professor Of Surgery Name Role Phone ANNATAZ CHILDSY Unavailable PROBLEMS Type Condition ICD9-CM Code DFB88-YJ Code Onset Dates Condition Status SNOMED Code Problem Missed period N92.6 Active 44273694 Problem Periodontitis K05.30 Active 20365781 Problem Subclinical hyperthyroidism E05.90 Active 490573071 Problem History of delivery, currently O09.219 Active 266936031 Problem care, subsequent in second trimester Z34.82 Active 402407130 ALLERGIES No Information ENCOUNTERS Encounter Location Date Diagnosis [place] [id number] [place] [address] 59864- 1067 Jul, [place] [address] 74628- 7043 Jun, Subclinical hyperthyroidism E05.90 [place] [id number] [place] [address] 12145- 2226 Jun, [place] [id number] [place] [address] 11190- 1059 Jun, Second trimester Z34.92 ; History of delivery, currently O09.219 ; Subclinical hyperthyroidism E05.90 ; Encounter for immunization Z23 and 20 weeks gestation of Z3A.20 [place] [id number] [place] [address] 44681- 5670 Jun, History of delivery, currently O09.219 [place] [id number] [place] [address] 80937- 7824 Jun, [place] [address] 74291- 9989 Jun, [facility] [id number] [place] [address] 52945- 2208 Jun, [facility] [address] 89640- 2902 May, Normal in multigravida Z34.80 ; Second trimester Z34.92 ; Low TSH level R79.89 ; 16 weeks gestation of Z3A.16 and History of delivery, currently O09.219 [facility] [address] 41801- 3386 May, [facility] [address] 93171- 8053 May, [facility] [address] 22982- 9024 May, Normal in multigravida Z34.80 [facility] [address] 40890- 3353 Apr, Normal in multigravida Z34.80 [facility] [address] 00053- 2196 Apr, Normal in multigravida Z34.80 and 11 weeks gestation of Z3A.11 [facility] [id number] [place] [address] 12798- 6693 Apr, [facility] [address] 70867- 8869 Apr, [facility] [address] [id number] Apr, Dental caries K02.9 [facility] [address] 25238- 6106 Apr, [facility] [id number] [place] [address] 90431 -4904 Apr, Oral infection K12.2 and Missed period N92.6 [facility] [address], [place] [address]- 4335 Feb, [facility] [id number] [place] [address] 92834- 1498 January, [facility] [id number] [place] [address] 41993- 4732 Nov, [facility] [address] 85059- 0290 Nov, Screening for deficiency anemia Z13.0 [facility] [id number] [place] [address] 08001- 6654 Nov, [facility] [id number] [place] [address] 74079- 8239 Nov, [facility] [id number] [place] [address] 13013- 3801 Nov, care in third trimester Z34.93 and 35 weeks gestation of Z3A.35 [facility] [id number] [place] [address] 01568- 0242 Oct, [facility] [id number] [place] [address] 96962- 5167 Oct, care in third trimester Z34.93 ; Encounter for immunization Z23 and 33 weeks gestation of Z3A.33 [place] [id number] [place] [address] 30277- 3468 Sep, care in second trimester Z34.92 and 29 weeks gestation of Z3A.29 [facility] [address] [place] [address] 85259- 2220 Aug, Dental examination Z01.20 [facility] [id number] [place] [address] 20091- 0491 Aug, Dental examination Z01.20 [facility] [id number] [place] [address] 63167- 7118 Aug, Second trimester Z34.92 and 14 weeks gestation of Z3A.14 [facility] [address] [id number] [address]- 4215 14 Aug, 2017 [facility] [id number] [place] [address] 47834- 5038 Jul, care in first trimester Z34.91 and Normal in multigravida Z34.80 [facility] [id number] [place] [address] 67676- 8945 Jul, [facility] [id number] [place] [address] 93832- 9944 Jul, [facility] [id number] [place] [address] 38102- 6576 Jun, [facility] [id number] [place] [address] [id number] Jun, Dental examination Z01.20 [facility] [id number] [place] [address] [id number] Jun, Dental examination Z01.20 [facility] [id number] [place] [address] 01899- 3818 January, Dental examination Z01.20 [facility] [address] [place] [address] 56472- 7347 Dec, Dental examination Z01.20 [facility] [id number] [place] [address] 64469- 1891 Dec, Dental examination Z01.20 [facility] [address] [place] [address] 27082- 7678 Nov, Dental examination Z01.20 and Periodontitis K05.30 [facility] [id number] [place] [address] 84197- 2948 Nov, [facility] [id number] [place] [address] 94568- 2662 Nov, Acute mastitis of left breast N61.0 and Acute nonintractable headache, unspecified headache type R51 IMMUNIZATIONS No Known Immunizations SOCIAL HISTORY Never Assessed REASON FOR VISIT lab order PLAN OF CARE VITAL SIGNS MEDICATIONS Unknown Medications RESULTS No Results PROCEDURES No Known procedures INSTRUCTIONS MEDICATIONS ADMINISTERED No Known Medications MEDICAL (GENERAL) HISTORY Type Description Date Medical History denies Hospitalization History Anemia 02/2014
--- OUTSIDE RECORDS SUMMARY | 2018-11-26 01:43 | XMS REPORT ---
Author Author ANNA FREDI [facility] Address [address] [place] [address] Care Team Providers Care Tax Manager Name Role Phone ANNATAZ CHILDSY Unavailable PROBLEMS Type Condition ICD9-CM Code [id number]-LX Code Onset Dates Condition Status SNOMED Code Problem Missed period N92.6 Active 39005502 Problem Periodontitis K05.30 Active 43378988 Problem Subclinical hyperthyroidism E05.90 Active 155110754 Problem History of delivery, currently O09.219 Active 870416311 Problem care, subsequent in second trimester Z34.82 Active 528554573 ALLERGIES No Information ENCOUNTERS Encounter Location Date Diagnosis [place] [id number] [place] [address] 40215- 7652 Jul, [place] [address] 05772- 8532 Jun, Subclinical hyperthyroidism E05.90 [place] [id number] [place] [address] 40845- 9757 Jun, Subclinical hyperthyroidism E05.90 [place] [id number] [place] [address] 77905- 5868 Jun, [place] [address] 73905- 6097 Jun, Second trimester Z34.92 ; History of delivery, currently O09.219 ; Subclinical hyperthyroidism E05.90 ; Encounter for immunization Z23 and 20 weeks gestation of Z3A.20 [place] [id number] [place] [address] 86831- 7762 17 Jun, 2018 History of delivery, currently O09.219 [place] [address] 52927- 3478 Jun, [facility] [address] [address] 2186 Jun, [facility] [id number] [place] [address] 32094- 1786 Jun, [facility] [id number] [place] [address] 90503- 6647 May, Normal in multigravida Z34.80 ; Second trimester Z34.92 ; Low TSH level R79.89 ; 16 weeks gestation of Z3A.16 and History of delivery, currently O09.219 [facility] [id number] [place] [address] 82561- 5415 May, [facility] [id number] [place] [address] 77493- 5977 May, [facility] [id number] [place] [address] 73493- 9077 May, Normal in multigravida Z34.80 [facility] [address] [place] [address] 41232- 1526 Apr, Normal in multigravida Z34.80 [facility] [address] [place] [address] 26574- 4580 Apr, Normal in multigravida Z34.80 and 11 weeks gestation of Z3A.11 [facility] [address] [place] [address] 19407- 8010 Apr, [facility] [address] [place] [address] 06735- 2070 Apr, [facility] [address] [place] [address] [id number] Apr, Dental caries K02.9 [facility] [address] [place] [address] 18700- 5483 Apr, [facility] [id number] [place] [address] 35332 -9558 Apr, Oral infection K12.2 and Missed period N92.6 [facility] [id number] [place] [address] 75217- 9027 Feb, [facility] [id number] [place] [address] 21745- 6181 January, [facility] [address] 03216- 4371 Nov, [facility] [address] 88189- 7183 Nov, Screening for deficiency anemia Z13.0 [place] [id number] [place] [address] 80158- 7091 Nov, [place] [address] 58471- 1042 Nov, [facility] [id number] [place] [address] 88095- 1333 Nov, care in third trimester Z34.93 and 35 weeks gestation of Z3A.35 [place] [id number] [place] [address] 95876- 4356 Oct, [facility] [id number] [place] [address] 94535- 8026 Oct, care in third trimester Z34.93 ; Encounter for immunization Z23 and 33 weeks gestation of Z3A.33 [place] [id number] [place] [address] 14598- 8470 Sep, care in second trimester Z34.92 and 29 weeks gestation of Z3A.29 [place] [id number] [place] [address] 40294- 9067 Aug, Dental examination Z01.20 [place] [id number] [place] [address] 54052- 3873 Aug, Dental examination Z01.20 [facility] [address] [address]- 9934 14 Aug, 2017 Second trimester Z34.92 and 14 weeks gestation of Z3A.14 [facility] [address] [facility] [id number] [address]- 8876 14 Aug, 2017 [facility] [id number] [place] [address] 27107- 2149 Jul, care in first trimester Z34.91 and Normal in multigravida Z34.80 [facility] [id number] [place] [address] 33977- 0276 Jul, [facility] [id number] [place] [address] 99982- 3709 Jul, [facility] [id number] [place] [address] 67820- 3828 Jun, [facility] [id number] [place] [address] [id number] Jun, Dental examination Z01.20 [facility] [id number] [place] [address] [id number] Jun, Dental examination Z01.20 [facility] [id number] [place] [address] 38358- 9003 January, Dental examination Z01.20 [facility] [id number] [address]- 5136 Dec, Dental examination Z01.20 [facility] [id number] [address]- 7277 Dec, Dental examination Z01.20 [facility] [id number] [place] [address] 123469- 3616 Nov, Dental examination Z01.20 and Periodontitis K05.30 [facility] [id number] [place] [address] 66866- 6968 Nov, [facility] [address] [facility] [id number] [place] [address]- 6183 Nov, Acute mastitis of left breast N61.0 and Acute nonintractable headache, unspecified headache type R51 IMMUNIZATIONS No Known Immunizations SOCIAL HISTORY Never Assessed REASON FOR VISIT Lab (walk-in) PLAN OF CARE Activity Details Pending Test THYROID STIMULATING IMMUNOGLOBULIN VITAL SIGNS MEDICATIONS Unknown Medications RESULTS No Results PROCEDURES Procedure Date Ordered Result Body Site ASSAY OF TSI Jul 11, 2018 INSTRUCTIONS MEDICATIONS ADMINISTERED No Known Medications MEDICAL (GENERAL) HISTORY Type Description Date Medical History denies Hospitalization History Anemia 02/2014
--- OUTSIDE RECORDS SUMMARY | 2018-11-26 01:43 | XMS REPORT ---
Author Author ANNA FREDI Organization [facility] Address [address] [place] [address] Care Team Providers Care Communications Instructor Name Role Phone ANNAFREDI CHILDS Unavailable PROBLEMS Type Condition ICD9-CM Code TOG22-FJ Code Onset Dates Condition Status SNOMED Code Problem Small fetus P05.00 Active 626553811 Problem Missed period N92.6 Active 22988510 Problem Subclinical hyperthyroidism E05.90 Active 834138289 Problem History of delivery, currently O09.219 Active 335408104 Problem Periodontitis K05.30 Active 91178378 Problem care, subsequent in second trimester Z34.82 Active 043867532 ALLERGIES No Information ENCOUNTERS Encounter Location Date Diagnosis [place] [address] 98258- 9991 Jul, History of delivery, currently O09.219 ; Second trimester Z34.92 ; 24 weeks gestation of Z3A.24 ; Subclinical hyperthyroidism E05.90 and Small fetus P05.00 [place] [address] 24466- 9938 Jul, History of delivery, currently O09.219 [facility] [address] 46723- 8780 Jul, History of delivery, currently O09.219 [facility] [address] 48445- 1401 Jun, Subclinical hyperthyroidism E05.90 [place] [address] 83140- 7810 Jun, Subclinical hyperthyroidism E05.90 [place] [address] 66344- 4005 Jun, [facility] [address] [place] [address] 71579- 8605 Jun, Second trimester Z34.92 ; History of delivery, currently O09.219 ; Subclinical hyperthyroidism E05.90 ; Encounter for immunization Z23 and 20 weeks gestation of Z3A.20 [facility] [id number] [place] [address] 57122- 5710 Jun, History of delivery, currently O09.219 [facility] [id number] [place] [address] 18856- 9709 Jun, [place] [id number] [place] [address] 45066- 4106 Jun, [facility] [id number] [place] [address] 69421- 4758 Jun, [facility] [id number] [place] [address] 58201- 4603 May, Normal in multigravida Z34.80 ; Second trimester Z34.92 ; Low TSH level R79.89 ; 16 weeks gestation of Z3A.16 and History of delivery, currently O09.219 [facility] [id number] [place] [address] 93176- 2120 May, [facility] [id number] [place] [address] 30562- 3061 May, [facility] [id number] [place] [address] 12106- 2088 May, Normal in multigravida Z34.80 [facility] [id number] [place] [address] 86530- 8560 Apr, Normal in multigravida Z34.80 [facility] [id number] [place] [address] 46168- 4242 Apr, Normal in multigravida Z34.80 and 11 weeks gestation of Z3A.11 [facility] [address] [place] [address] 69151- 2849 15 Apr, 2018 [facility] [id number] [place] [address] 36899- 7393 Apr, [facility] [address] [id number] Apr, Dental caries K02.9 [facility] [address] 14619- 3992 Apr, [facility] [id number] [place] [address] 06454 -8686 Apr, Oral infection K12.2 and Missed period N92.6 [facility] [id number] [place] [address] 31564- 0382 Feb, [facility] [id number] [place] [address] 68712- 8266 January, [facility] [id number] [place] [address] 15860- 5573 Nov, [facility] [id number] [place] [address] 33939- 7109 Nov, Screening for deficiency anemia Z13.0 [facility] [id number] [place] [address] 16409- 5850 Nov, [facility] [id number] [place] [address] 10737- 0748 Nov, [facility] [id number] [place] [address] 36307- 4374 Nov, care in third trimester Z34.93 and 35 weeks gestation of Z3A.35 [facility] [id number] [place] [address] 55619- 3465 Oct, [facility] [id number] [place] [address] 04036- 3435 20 Feb, 2018 care in third trimester Z34.93 ; Encounter for immunization Z23 and 33 weeks gestation of Z3A.33 [facility] [id number] [place] [address] 48066- 4465 Sep, care in second trimester Z34.92 and 29 weeks gestation of Z3A.29 [facility] [id number] [place] [address] 91114- 9656 Aug, Dental examination Z01.20 [facility] [id number] [place] [address] 37892- 5848 Aug, Dental examination Z01.20 [facility] [id number] [place] [address] 24140- 4910 Aug, Second trimester Z34.92 and 14 weeks gestation of Z3A.14 [facility] [id number] [place] [address] 00527- 1937 Aug, [facility] [id number] [place] [address] 77777- 8228 Jul, care in first trimester Z34.91 and Normal in multigravida Z34.80 [facility] [id number] [place] [address] 61152- 7365 Jul, [facility] [address] [place] [address] 91402- 2497 Jul, [facility] [id number] [place] [address] 24695- 8183 Jun, [facility] [address] [place] [address] [id number] Jun, Dental examination Z01.20 [facility] [id number] [place] [address] [id number] Jun, Dental examination Z01.20 [facility] [address], [place] [address]- 8729 January, Dental examination Z01.20 [facility] [address] [place] [address]- 5387 27 Dec, 2016 Dental examination Z01.20 [facility] [address], [place] [address]- 8602 07 Dec, 2016 Dental examination Z01.20 [facility] [address], [place] [address]- 5515 28 Nov, 2016 Dental examination Z01.20 and Periodontitis K05.30 [place] [address] [address]- 2668 21 Nov, 2016 [facility] [address], [place] [address]- 4921 21 Nov, 2016 Acute mastitis of left breast N61.0 and Acute nonintractable headache, unspecified headache type R51 IMMUNIZATIONS Vaccine Route Administration Date Status TUAN 275 MG/1.1ML (PT'S OWN) SC Subcutaneous Aug 08, 2018 Administered SOCIAL HISTORY Never Assessed REASON FOR VISIT OB 4wk f/u, ob urine dip-awoods PLAN OF CARE Activity Details Follow Up 4 Weeks Reason: VITAL SIGNS Height 5'2" in 2018-08-08 Weight 154.7 lbs 2018-08-08 Temperature 98.2 degrees Fahrenheit 2018-08-08 Heart Rate 82 bpm 2018-08-08 Respiratory Rate 18 2018-08-08 BMI 28.29 kg/m2 2018-08-08 Blood pressure systolic 102 mmHg 2018-08-08 Blood pressure diastolic 62 mmHg 2018-08-08 MEDICATIONS Medication Instructions Dosage Frequency Start Date End Date Duration Status Vitamin 27-0.8 MG Active RESULTS Name Result Date Reference Range UA OB DIP (IN HOUSE) 2018-08-08 Glucose negative Protein trace PROCEDURES Procedure Date Ordered Result Body Site URINE-NO MICRO Aug 08, 2018 TUAN 275 MG/1.1ML (PT'S OWN) Aug 08, 2018 THER/PROPH/DIAG INJ, SC/IM Aug 08, 2018 INSTRUCTIONS MEDICATIONS ADMINISTERED No Known Medications MEDICAL (GENERAL) HISTORY Type Description Date Medical History denies Hospitalization History Anemia 02/2014
--- OUTSIDE RECORDS SUMMARY | 2018-11-26 01:43 | XMS REPORT ---
Author Author ANNA FREDI [facility] Address [address] [place] [address] Care Team Providers Care Instructional Designer Name Role Phone ANNATORREY CHILDSHANY Unavailable PROBLEMS Type Condition ICD9-CM Code SVK62-IU Code Onset Dates Condition Status SNOMED Code Problem Missed period N92.6 Active 24359746 Problem Periodontitis K05.30 Active 25319397 Problem Subclinical hyperthyroidism E05.90 Active 471022109 Problem History of delivery, currently O09.219 Active 285759476 Problem care, subsequent in second trimester Z34.82 Active 674583373 ALLERGIES No Information ENCOUNTERS Encounter Location Date Diagnosis [place] [id number] [place] [address] 55883- 5477 Jul, [place] [id number] [place] [address] 75399- 4109 Jul, History of delivery, currently O09.219 [place] [id number] [place] [address] 72891- 0041 Jun, Subclinical hyperthyroidism E05.90 [place] [id number] [place] [address] 21313- 9666 Jun, Subclinical hyperthyroidism E05.90 [place] [id number] [place] [address] 91865- 8976 Jun, [place] [address] 59501- 4237 Jun, Second trimester Z34.92 ; History of delivery, currently O09.219 ; Subclinical hyperthyroidism E05.90 ; Encounter for immunization Z23 and 20 weeks gestation of Z3A.20 [place] [id number] [place] [address] 23653- 3875 Jun, History of delivery, currently O09.219 [facility] [id number] [place] [address] 08970- 4028 Jun, [facility] [id number] [place] [address] 02953- 9309 Jun, [facility] [id number] [place] [address] 61282- 7156 Jun, [facility] [id number] [place] [address] 25690- 0730 May, Normal in multigravida Z34.80 ; Second trimester Z34.92 ; Low TSH level R79.89 ; 16 weeks gestation of Z3A.16 and History of delivery, currently O09.219 [facility] [address] [place] [address] 55478- 8378 May, [facility] [id number] [place] [address] 53792- 6999 May, [facility] [id number] [place] [address] 33472- 3637 May, Normal in multigravida Z34.80 [facility] [address] [place] [address] 74716- 3759 Apr, Normal in multigravida Z34.80 [facility] [address] [place] [address] 08263- 0882 Apr, Normal in multigravida Z34.80 and 11 weeks gestation of Z3A.11 [facility] [id number] [place] [address] 51700- 7481 Apr, [facility] [address] [place] [address] 61277- 2089 Apr, [facility] [address] [id number] [place] [address] [id number] Apr, Dental caries K02.9 [facility] [address], [place] [address]- 9221 Apr, [facility] [address] [place] [address] 92284 -1468 Apr, Oral infection K12.2 and Missed period N92.6 [facility] [id number] [place] [address] 16883- 4157 Feb, [facility] [id number] [place] [address] 11525- 6149 January, [facility] [id number] [place] [address] 72034- 3863 Nov, [facility] [id number] [place] [address] 77870- 0943 Nov, Screening for deficiency anemia Z13.0 [facility] [id number] [place] [address] 32703- 0203 Nov, [facility] [id number] [place] [address] 53847- 3125 Nov, [facility] [id number] [place] [address] 81626- 4509 Nov, care in third trimester Z34.93 and 35 weeks gestation of Z3A.35 [place] [address] [place] [address] 45532- 5597 Oct, [facility] [id number] [place] [address] 55163- 2479 Oct, care in third trimester Z34.93 ; Encounter for immunization Z23 and 33 weeks gestation of Z3A.33 [place] [id number] [place] [address] 05690- 4026 Sep, care in second trimester Z34.92 and 29 weeks gestation of Z3A.29 [facility] [id number] [place] [address] 86676- 0368 Aug, Dental examination Z01.20 [facility] [address], [place] [address]- 4184 Aug, Dental examination Z01.20 [facility] [address] 7242 Aug, Second trimester Z34.92 and 14 weeks gestation of Z3A.14 [facility] [id number] [place] [address] 30033- 9942 Aug, [facility] [address] [place] [address] 71744- 5996 Jul, care in first trimester Z34.91 and Normal in multigravida Z34.80 [facility] [id number] [address]- 5633 Jul, [facility] [id number] [place] [address] 56551- 6819 Jul, [facility] [id number] [place] [address] 60117- 4682 Jun, [facility] [id number] [place] [address] [id number] Jun, Dental examination Z01.20 [facility] [address] [id number] [id number] Jun, Dental examination Z01.20 [facility] [address] [place] [address] 65470- 4313 January, Dental examination Z01.20 [facility] [id number] [address]- 4292 Dec, Dental examination Z01.20 [facility] [id number] 6857 Dec, Dental examination Z01.20 [facility] [address] [place] [address]- 9193 Nov, Dental examination Z01.20 and Periodontitis K05.30 [facility] [address] [facility] [id number] [place] [address] Nov, [facility] [address] [id number] [place] [address] Nov, Acute mastitis of left breast N61.0 and Acute nonintractable headache, unspecified headache type R51 IMMUNIZATIONS Vaccine Route Administration Date Status TUAN 275 MG/1.1ML (PT'S OWN) SC Subcutaneous Jul 20, 2018 Administered SOCIAL HISTORY Never Assessed REASON FOR VISIT tuan -- nirav baum PLAN OF CARE Activity Details Follow Up 1 Week Reason: VITAL SIGNS MEDICATIONS Unknown Medications RESULTS No Results PROCEDURES Procedure Date Ordered Result Body Site TUAN 275 MG/1.1ML (PT'S OWN) Jul 20, 2018 THER/PROPH/DIAG INJ, SC/IM Jul 20, 2018 INSTRUCTIONS MEDICATIONS ADMINISTERED No Known Medications MEDICAL (GENERAL) HISTORY Type Description Date Medical History denies Hospitalization History Anemia 02/2014
--- OUTSIDE RECORDS SUMMARY | 2018-11-26 01:43 | XMS REPORT ---
Author Author ANNA FREDI [facility] Address [address] [place] [address] Care Team Providers Care Framing Machine Tender Name Role Phone ANNATORREY CHILDSHANY Unavailable PROBLEMS Type Condition ICD9-CM Code VPW23-GQ Code Onset Dates Condition Status SNOMED Code Problem Missed period N92.6 Active 92232327 Problem Periodontitis K05.30 Active 09444428 Problem Subclinical hyperthyroidism E05.90 Active 969432365 Problem History of delivery, currently O09.219 Active 733734080 Problem care, subsequent in second trimester Z34.82 Active 511834360 ALLERGIES No Information ENCOUNTERS Encounter Location Date Diagnosis [place] [id number] [place] [address] 29341- 6888 Jul, [place] [id number] [place] [address] 02262- 3745 Jul, History of delivery, currently O09.219 [place] [id number] [place] [address] 24972- 1548 Jul, History of delivery, currently O09.219 [place] [id number] [place] [address] 69546- 4403 Jun, Subclinical hyperthyroidism E05.90 [place] [id number] [place] [address] 76320- 4940 Jun, Subclinical hyperthyroidism E05.90 [place] [id number] [place] [address] 63368- 6104 Jun, [place] [id number] [place] [address] 95136- 5646 Jun, Second trimester Z34.92 ; History of delivery, currently O09.219 ; Subclinical hyperthyroidism E05.90 ; Encounter for immunization Z23 and 20 weeks gestation of Z3A.20 [facility] [id number] [place] [address] 59688- 2853 17 Jun, 2018 History of delivery, currently O09.219 [facility] [id number] [place] [address] 30956- 2093 Jun, [facility] [address] 29412- 8915 Jun, [facility] [id number] [place] [address] 56701- 2684 Jun, [facility] [id number] [place] [address] 00837- 9688 May, Normal in multigravida Z34.80 ; Second trimester Z34.92 ; Low TSH level R79.89 ; 16 weeks gestation of Z3A.16 and History of delivery, currently O09.219 [facility] [id number] [place] [address] 14042- 2405 May, [place] [id number] [place] [address] 49021- 8326 May, [facility] [id number] [place] [address] 04234- 4861 May, Normal in multigravida Z34.80 [facility] [id number] [place] [address] 78375- 8257 Apr, Normal in multigravida Z34.80 [facility] [id number] [place] [address] 28089- 9910 Apr, Normal in multigravida Z34.80 and 11 weeks gestation of Z3A.11 [place] [id number] [place] [address] 54777- 7313 Apr, [facility] [address] 92127- 9404 Apr, [facility] [address] [place] [address] [id number] Apr, Dental caries K02.9 [facility] [id number] [place] [address] 49411- 7904 Apr, [facility] [id number] [place] [address] 53757 -4814 Apr, Oral infection K12.2 and Missed period N92.6 [facility] [id number] [place] [address] 91023- 3662 Feb, [facility] [address] 42522- 8891 January, [facility] [id number] [place] [address] 66384- 8608 Nov, [facility] [address] 35125- 7425 Nov, Screening for deficiency anemia Z13.0 [facility] [id number] [place] [address] 74008- 3435 Nov, [facility] [id number] [place] [address] 22044- 7054 Nov, [facility] [id number] [place] [address] 76508- 9146 Nov, care in third trimester Z34.93 and 35 weeks gestation of Z3A.35 [facility] [id number] [place] [address] 56718- 5510 Oct, [facility] [id number] [place] [address] 68092- 2865 Oct, care in third trimester Z34.93 ; Encounter for immunization Z23 and 33 weeks gestation of Z3A.33 [facility] [id number] [place] [address] 79946- 7435 Sep, care in second trimester Z34.92 and 29 weeks gestation of Z3A.29 [facility] [address] [address]- 5236 Aug, Dental examination Z01.20 [facility] [address] [address]- 7098 Aug, Dental examination Z01.20 [facility] [id number] [place] [address] 80165- 5306 Aug, Second trimester Z34.92 and 14 weeks gestation of Z3A.14 [facility] [id number] [place] [address] 38251- 5937 Aug, [facility] [id number] [place] [address] 66320- 5925 Jul, care in first trimester Z34.91 and Normal in multigravida Z34.80 [facility] [id number] [place] [address] 86166- 0508 Jul, [facility] [id number] [place] [address] 07753- 3948 Jul, [facility] [id number] [place] [address] 56401- 6674 Jun, [facility] [address] [address] Jun, Dental examination Z01.20 [facility] [address] [place] [address] [phone] Jun, Dental examination Z01.20 [facility] [address] [place] [address] 10946- 9216 January, Dental examination Z01.20 [facility] [address] [place] [address] 23892- 3099 Dec, Dental examination Z01.20 [facility] [address] [place] [address] 97601- 5463 Dec, Dental examination Z01.20 [facility] [address] [facility] [id number] [address]- 9979 Nov, Dental examination Z01.20 and Periodontitis K05.30 [facility] [address] [facility] [id number] [address]- 5439 Nov, [place] [address] [facility] [id number] [address]- 8757 Nov, Acute mastitis of left breast N61.0 and Acute nonintractable headache, unspecified headache type R51 IMMUNIZATIONS Vaccine Route Administration Date Status TUAN 275 MG/1.1ML (PT'S OWN) SC Subcutaneous Jul 27, 2018 Administered SOCIAL HISTORY Never Assessed REASON FOR VISIT injection-awoods PLAN OF CARE Activity Details Follow Up 1 Week Reason: VITAL SIGNS MEDICATIONS Unknown Medications RESULTS No Results PROCEDURES Procedure Date Ordered Result Body Site TUAN 275 MG/1.1ML (PT'S OWN) Jul 27, 2018 THER/PROPH/DIAG INJ, SC/IM Jul 27, 2018 INSTRUCTIONS MEDICATIONS ADMINISTERED No Known Medications MEDICAL (GENERAL) HISTORY Type Description Date Medical History denies Hospitalization History Anemia 02/2014
--- OUTSIDE RECORDS SUMMARY | 2018-11-26 01:44 | XMS REPORT ---
Author Author ANNA FREDI [facility] Address [address] [place] [address] Care Team Providers Care Physicist Nuclear Name Role Phone ANNATORREYFREDI Unavailable PROBLEMS Type Condition ICD9-CM Code FTI06-DQ Code Onset Dates Condition Status SNOMED Code Problem Missed period N92.6 Active 85432166 Problem Periodontitis K05.30 Active 57778812 ALLERGIES No Information ENCOUNTERS Encounter Location Date Diagnosis [place] [id number] [place] [address] 71280- 6344 Jun, [place] [id number] [place] [address] 93415- 1447 Jun, [place] [id number] [place] [address] 35479- 9686 Jun, [place] [id number] [place] [address] 26608- 5235 May, Normal in multigravida Z34.80 ; Second trimester Z34.92 ; Low TSH level R79.89 ; 16 weeks gestation of Z3A.16 and History of delivery, currently O09.219 [place] [id number] [place] [address] 84450- 9645 May, [place] [id number] [place] [address] 72853- 4528 May, [place] [id number] [place] [address] 81392- 6925 May, Normal in multigravida Z34.80 [place] [id number] [place] [address] 74184- 9683 Apr, Normal in multigravida Z34.80 [facility] [id number] [place] [address] 48354- 5039 Apr, Normal in multigravida Z34.80 and 11 weeks gestation of Z3A.11 [facility] [id number] [place] [address] 31794- 1583 Apr, [facility] [id number] [place] [address] 69890- 5465 Apr, [facility] [id number] [place] [address] [phone] Apr, Dental caries K02.9 [facility] [address] 17948- 9202 Apr, [facility] [id number] [place] [address] 63109 -8611 Apr, Oral infection K12.2 and Missed period N92.6 [facility] [id number] [place] [address] 42053- 8957 Feb, [facility] [id number] [place] [address] 85489- 3174 January, [facility] [id number] [place] [address] 63715- 4234 Nov, [facility] [id number] [place] [address] 20860- 6437 Nov, Screening for deficiency anemia Z13.0 [facility] [id number] [place] [address] 89534- 2232 Nov, [facility] [id number] [place] [address] 17893- 5385 Nov, [facility] [id number] [place] [address] 38242- 2868 Nov, care in third trimester Z34.93 and 35 weeks gestation of Z3A.35 [facility] [id number] [place] [address] 73637- 5633 Oct, [facility] [id number] [place] [address] 02759- 1225 Oct, care in third trimester Z34.93 ; Encounter for immunization Z23 and 33 weeks gestation of Z3A.33 [facility] [id number] [place] [address] 83706- 2765 Sep, care in second trimester Z34.92 and 29 weeks gestation of Z3A.29 [facility] [id number] [place] [address] 56786- 7593 19 Aug, 2017 Dental examination Z01.20 [facility] [id number] [place] [address] 60813- 5987 Aug, Dental examination Z01.20 [facility] [id number] [place] [address] 09217- 7542 Aug, Second trimester Z34.92 and 14 weeks gestation of Z3A.14 [facility] [id number] [place] [address] 93292- 5443 Aug, [facility] [id number] [place] [address] 77911- 1059 Jul, care in first trimester Z34.91 and Normal in multigravida Z34.80 [facility] [id number] [place] [address] 31553- 9473 Jul, [facility] [id number] [place] [address] 75028- 6030 Jul, [facility] [address] [place] [address] 92270- 9431 Jun, [facility] [id number] [place] [address] [phone] Jun, Dental examination Z01.20 [facility] [id number] [place] [address] [phone] Jun, Dental examination Z01.20 [facility] [address] [address]- 1850 January, Dental examination Z01.20 [facility] [address], [place] [address]- 6293 Dec, Dental examination Z01.20 [facility] [address], [place] [address]- 5836 Dec, Dental examination Z01.20 [facility] [id number] [place] [address] 03179- 8457 Nov, Dental examination Z01.20 and Periodontitis K05.30 [place] [id number] [place] [address] 98630- 3495 Nov, [place] [id number] [place] [address] 35245- 2408 Nov, Acute mastitis of left breast N61.0 and Acute nonintractable headache, unspecified headache type R51 IMMUNIZATIONS No Known Immunizations SOCIAL HISTORY Never Assessed REASON FOR VISIT OB f/u -- nirav baum PLAN OF CARE Activity Details Follow Up 4 Weeks, 4 Weeks Reason: Pending Test TSH w/ FREE T4 Pending Test T3 TOTAL VITAL SIGNS Height 5'2" in 2018-06-09 Weight 145.0 lbs 2018-06-09 Temperature 98.1 degrees Fahrenheit 2018-06-09 Heart Rate 80 bpm 2018-06-09 Respiratory Rate 18 2018-06-09 BMI 26.52 kg/m2 2018-06-09 Blood pressure systolic 120 mmHg 2018-06-09 Blood pressure diastolic 78 mmHg 2018-06-09 MEDICATIONS Medication Instructions Dosage Frequency Start Date End Date Duration Status Vitamin 27-0.8 MG Active RESULTS No Results PROCEDURES Procedure Date Ordered Result Body Site VENIPUNCT, ROUTINE* Jun 09, 2018 URINE-NO MICRO Jun 09, 2018 CHEMILUMINESCENT ASSAY Jun 09, 2018 ASSAY OF FREE THYROXINE Jun 09, 2018 ASSAY THYROID STIM HORMONE Jun 09, 2018 INHIBIN A Jun 09, 2018 ALPHA-FETOPROTEIN, SERUM Jun 09, 2018 CHORIONIC GONADOTROPIN TEST Jun 09, 2018 ASSAY OF ESTRIOL Jun 09, 2018 INSTRUCTIONS MEDICATIONS ADMINISTERED No Known Medications MEDICAL (GENERAL) HISTORY Type Description Date Medical History denies Hospitalization History Anemia 02/2014
--- OUTSIDE RECORDS SUMMARY | 2018-11-26 01:44 | XMS REPORT ---
Author Author LUCHO GONZALEZ [facility] Address Unknown Care Team Providers Care Coal Dumping Equipment Operator Name Role Phone LUCHO GONZALEZ Unavailable PROBLEMS Type Condition ICD9-CM Code VRH08-SH Code Onset Dates Condition Status SNOMED Code Problem Missed period N92.6 Active 93010062 Problem Periodontitis K05.30 Active 76019942 ALLERGIES No Known Allergies ENCOUNTERS Encounter Location Date Diagnosis [facility] [address] 33934- 6850 May, [facility] [address] 22693- 4999 May, [facility] [address] 79230- 0615 May, [facility] [address] 92862- 1067 May, Normal in multigravida Z34.80 [facility] [address] 08890- 1479 Apr, Normal in multigravida Z34.80 [facility] [address] 02976- 4340 Apr, Normal in multigravida Z34.80 and 11 weeks gestation of Z3A.11 [facility] [address] 17051- 8018 Apr, [facility] [address] 52115- 5681 Apr, [facility] [id number] [place] [address] [phone] Apr, Dental caries K02.9 [facility] [address] [place] [address] 08314- 5602 Apr, [facility] [id number] [place] [address] 59793 -4611 Apr, Oral infection K12.2 and Missed period N92.6 [facility] [id number] [place] [address] 18511- 9746 Feb, [facility] [address] 14725- 5511 January, [facility] [id number] [place] [address] 04957- 2077 Nov, [place] [id number] [place] [address] 88246- 4571 Nov, Screening for deficiency anemia Z13.0 [place] [id number] [place] [address] 47309- 7977 Nov, [facility] [id number] [place] [address] 81061- 3657 Nov, [place] [id number] [place] [address] 82514- 8528 Nov, care in third trimester Z34.93 and 35 weeks gestation of Z3A.35 [place] [id number] [place] [address] 68027- 0045 Oct, [facility] [id number] [place] [address] 34385- 3888 Oct, care in third trimester Z34.93 ; Encounter for immunization Z23 and 33 weeks gestation of Z3A.33 [place] [id number] [place] [address] 28520- 1100 Sep, care in second trimester Z34.92 and 29 weeks gestation of Z3A.29 [place] [id number] [place] [address] 15985- 7710 Aug, Dental examination Z01.20 [facility] [address], [place] [address]- 7711 Aug, Dental examination Z01.20 [facility] [address], [place] [address]- 2776 Aug, Second trimester Z34.92 and 14 weeks gestation of Z3A.14 [facility] [id number] [place] [address] 03138- 1973 Aug, [facility] [address] [place] [address] 24821- 2465 Jul, care in first trimester Z34.91 and Normal in multigravida Z34.80 [facility] [id number] [place] [address] 98199- 8552 Jul, [facility] [id number] [place] [address] 30971- 4811 Jul, [facility] [id number] [place] [address] 06699- 8253 Jun, [facility] [id number] [place] [address] [id number] Jun, Dental examination Z01.20 [facility] [id number] [place] [address] [id number] Jun, Dental examination Z01.20 [facility] [id number] [place] [address] 53246- 2026 January, Dental examination Z01.20 [facility] [address], [place] [address]- 0446 Dec, Dental examination Z01.20 [facility] [address] [place] [address] 343880- 7756 Dec, Dental examination Z01.20 [facility] [address], [place] [address]- 3916 Nov, Dental examination Z01.20 and Periodontitis K05.30 [facility] [address] [facility] [id number] [place] [address]- 1543 Nov, [facility] [address] [facility] [id number] [place] [address]- 8006 Nov, Acute mastitis of left breast N61.0 and Acute nonintractable headache, unspecified headache type R51 IMMUNIZATIONS No Known Immunizations SOCIAL HISTORY Never Assessed REASON FOR VISIT Limited oral exam-dental pain PLAN OF CARE Activity Details Follow Up 4 Weeks Reason:Fillins and perio VITAL SIGNS Height 5'2" in 2018-04-20 Blood pressure systolic 103 mmHg 2018-04-20 Blood pressure diastolic 68 mmHg 2018-04-20 MEDICATIONS Medication Instructions Dosage Frequency Start Date End Date Duration Status Amoxicillin 500 MG Orally every 8 hrs 1 tablet 8h 10 day(s) Active Vitamin 27-0.8 MG Active RESULTS No Results PROCEDURES Procedure Date Ordered Result Body Site LTD ORAL EVALUATION - PROBLEM FOCUS Apr 20, 2018 EXTRAC ERUPTED TOOTH/EXPOSED ROOT Apr 20, 2018 INSTRUCTIONS MEDICATIONS ADMINISTERED No Known Medications MEDICAL (GENERAL) HISTORY Type Description Date Medical History denies Hospitalization History Anemia 02/2014
--- OUTSIDE RECORDS SUMMARY | 2018-11-26 01:44 | XMS REPORT ---
Author Author ANNA FREDI [facility] Address [address] [place] [address] Care Team Providers Care Area Development Manager Name Role Phone ANNATORREYFREDI Unavailable PROBLEMS Type Condition ICD9-CM Code FWL95-VU Code Onset Dates Condition Status SNOMED Code Problem Missed period N92.6 Active 43584022 Problem Periodontitis K05.30 Active 03162048 ALLERGIES No Information ENCOUNTERS Encounter Location Date Diagnosis [place] [id number] [place] [address] 01249- 9745 Jun, [place] [id number] [place] [address] 62080- 4212 Jun, [place] [id number] [place] [address] 83214- 5172 Jun, [place] [id number] [place] [address] 07519- 3279 May, Normal in multigravida Z34.80 ; Second trimester Z34.92 ; Low TSH level R79.89 ; 16 weeks gestation of Z3A.16 and History of delivery, currently O09.219 [place] [id number] [place] [address] 03214- 8510 May, [place] [id number] [place] [address] 22514- 7118 May, [place] [id number] [place] [address] 55213- 1100 May, Normal in multigravida Z34.80 [place] [id number] [place] [address] 66997- 9722 Apr, Normal in multigravida Z34.80 [facility] [id number] [place] [address] 85517- 8251 Apr, Normal in multigravida Z34.80 and 11 weeks gestation of Z3A.11 [facility] [id number] [place] [address] 57607- 9690 Apr, [facility] [id number] [place] [address] 65776- 3652 Apr, [facility] [id number] [place] [address] [phone] Apr, Dental caries K02.9 [facility] [address] 73498- 1402 Apr, [facility] [id number] [place] [address] 97385 -1499 Apr, Oral infection K12.2 and Missed period N92.6 [facility] [id number] [place] [address] 27039- 6744 Feb, [facility] [id number] [place] [address] 18261- 1121 January, [facility] [id number] [place] [address] 69341- 1121 Nov, [facility] [id number] [place] [address] 10091- 3651 Nov, Screening for deficiency anemia Z13.0 [facility] [id number] [place] [address] 37300- 4125 Nov, [facility] [id number] [place] [address] 32697- 0714 Nov, [facility] [id number] [place] [address] 39008- 8249 Nov, care in third trimester Z34.93 and 35 weeks gestation of Z3A.35 [facility] [id number] [place] [address] 82615- 0389 Oct, [facility] [id number] [place] [address] 07782- 0952 Oct, care in third trimester Z34.93 ; Encounter for immunization Z23 and 33 weeks gestation of Z3A.33 [facility] [id number] [place] [address] 73932- 9834 Sep, care in second trimester Z34.92 and 29 weeks gestation of Z3A.29 [facility] [id number] [place] [address] 24708- 5907 19 Aug, 2017 Dental examination Z01.20 [facility] [id number] [place] [address] 44909- 1238 Aug, Dental examination Z01.20 [facility] [id number] [place] [address] 27160- 8380 Aug, Second trimester Z34.92 and 14 weeks gestation of Z3A.14 [facility] [id number] [place] [address] 28945- 6956 Aug, [facility] [id number] [place] [address] 80279- 7234 Jul, care in first trimester Z34.91 and Normal in multigravida Z34.80 [facility] [id number] [place] [address] 48300- 9306 Jul, [facility] [id number] [place] [address] 29391- 8961 Jul, [facility] [address] [place] [address] 52365- 3893 Jun, [facility] [id number] [place] [address] [phone] Jun, Dental examination Z01.20 [facility] [id number] [place] [address] [phone] Jun, Dental examination Z01.20 [facility] [address], [place] [address] January, Dental examination Z01.20 [facility] [address], [place] [address]- 2822 Dec, Dental examination Z01.20 [facility] [id number] [address]- 2287 Dec, Dental examination Z01.20 [facility] [id number] [place] [address] 76009- 5013 Nov, Dental examination Z01.20 and Periodontitis K05.30 [place] [address] [place] [address] 69687- 8090 Nov, [place] [id number] [address]- 5184 Nov, Acute mastitis of left breast N61.0 and Acute nonintractable headache, unspecified headache type R51 IMMUNIZATIONS No Known Immunizations SOCIAL HISTORY Never Assessed REASON FOR VISIT nurse call PLAN OF CARE VITAL SIGNS MEDICATIONS Unknown Medications RESULTS No Results PROCEDURES No Known procedures INSTRUCTIONS MEDICATIONS ADMINISTERED No Known Medications MEDICAL (GENERAL) HISTORY Type Description Date Medical History denies Hospitalization History Anemia 02/2014
--- OUTSIDE RECORDS SUMMARY | 2018-11-26 01:44 | XMS REPORT ---
Author Author ANNA FREDI [facility] Address [address] [place] [address] Care Team Providers Care Shingle Grader Name Role Phone ANNATORREYFREDI Unavailable PROBLEMS Type Condition ICD9-CM Code RRE37-ZC Code Onset Dates Condition Status SNOMED Code Problem Missed period N92.6 Active 41118227 Problem Periodontitis K05.30 Active 86386470 ALLERGIES No Information ENCOUNTERS Encounter Location Date Diagnosis [place] [id number] [place] [address] 27400- 1847 Jun, [place] [id number] [place] [address] 16085- 6089 Jun, [place] [id number] [place] [address] 32059- 1473 Jun, [place] [id number] [place] [address] 82706- 3895 May, Normal in multigravida Z34.80 ; Second trimester Z34.92 ; Low TSH level R79.89 ; 16 weeks gestation of Z3A.16 and History of delivery, currently O09.219 [place] [id number] [place] [address] 99405- 3622 May, [place] [id number] [place] [address] 90019- 3371 May, [place] [id number] [place] [address] 32873- 4038 May, Normal in multigravida Z34.80 [place] [id number] [place] [address] 15116- 8717 Apr, Normal in multigravida Z34.80 [facility] [id number] [place] [address] 35177- 7530 Apr, Normal in multigravida Z34.80 and 11 weeks gestation of Z3A.11 [facility] [id number] [place] [address] 84019- 1950 Apr, [facility] [id number] [place] [address] 09276- 9135 Apr, [facility] [id number] [place] [address] [id number] Apr, Dental caries K02.9 [facility] [address] 66841- 3756 Apr, [facility] [id number] [place] [address] 75497 -8698 Apr, Oral infection K12.2 and Missed period N92.6 [facility] [id number] [place] [address] 69942- 9511 Feb, [facility] [id number] [place] [address] 76048- 8183 January, [facility] [id number] [place] [address] 61458- 9097 Nov, [facility] [id number] [place] [address] 19348- 3201 Nov, Screening for deficiency anemia Z13.0 [facility] [id number] [place] [address] 37080- 6742 Nov, [facility] [id number] [place] [address] 47076- 3094 Nov, [facility] [id number] [place] [address] 08328- 4561 Nov, care in third trimester Z34.93 and 35 weeks gestation of Z3A.35 [facility] [id number] [place] [address] 30574- 9722 Oct, [facility] [id number] [place] [address] 67439- 8769 Oct, care in third trimester Z34.93 ; Encounter for immunization Z23 and 33 weeks gestation of Z3A.33 [facility] [id number] [place] [address] 04691- 1788 Sep, care in second trimester Z34.92 and 29 weeks gestation of Z3A.29 [facility] [id number] [place] [address] 14979- 0316 19 Aug, 2017 Dental examination Z01.20 [facility] [id number] [place] [address] 71829- 4393 Aug, Dental examination Z01.20 [facility] [id number] [place] [address] 64749- 4288 Aug, Second trimester Z34.92 and 14 weeks gestation of Z3A.14 [facility] [id number] [place] [address] 94298- 0773 Aug, [facility] [id number] [place] [address] 88335- 0861 Jul, care in first trimester Z34.91 and Normal in multigravida Z34.80 [facility] [id number] [place] [address] 11780- 9734 Jul, [facility] [id number] [place] [address] 51095- 0856 Jul, [facility] [address] [place] [address] 47062- 8935 Jun, [facility] [id number] [place] [address] [id number] Jun, Dental examination Z01.20 [facility] [id number] [place] [address] [phone] Jun, Dental examination Z01.20 [facility] [address], [place] [address]- 7476 January, Dental examination Z01.20 [facility] [address], [place] [address]- 0052 Dec, Dental examination Z01.20 [facility] [id number] [address]- 8747 Dec, Dental examination Z01.20 [facility] [id number] [place] [address] 18695- 2025 Nov, Dental examination Z01.20 and Periodontitis K05.30 [place] [address] [place] [address] 38887- 7472 Nov, [place] [id number] [place] [address] 91781- 2496 Nov, Acute mastitis of left breast N61.0 and Acute nonintractable headache, unspecified headache type R51 IMMUNIZATIONS No Known Immunizations SOCIAL HISTORY Never Assessed REASON FOR VISIT returned call PLAN OF CARE VITAL SIGNS MEDICATIONS Unknown Medications RESULTS No Results PROCEDURES No Known procedures INSTRUCTIONS MEDICATIONS ADMINISTERED No Known Medications MEDICAL (GENERAL) HISTORY Type Description Date Medical History denies Hospitalization History Anemia 02/2014
--- OUTSIDE RECORDS SUMMARY | 2018-11-26 01:44 | XMS REPORT ---
Author Author FREDI CASTILLO [facility] Address [address] [place] [address] Care Team Providers Care Loftsman/Woman Name Role Phone ANNATORREYFREDI Unavailable PROBLEMS Type Condition ICD9-CM Code CSH93-EB Code Onset Dates Condition Status SNOMED Code Problem Missed period N92.6 Active 83589812 Problem Periodontitis K05.30 Active 26705713 ALLERGIES No Known Allergies ENCOUNTERS Encounter Location Date Diagnosis [facility] [id number] [place] [address] 84371- 1334 May, [facility] [address] 13818- 6246 May, Normal in multigravida Z34.80 [facility] [address] 82036- 5164 Apr, Normal in multigravida Z34.80 [facility] [address] 20181- 4319 Apr, Normal in multigravida Z34.80 and 11 weeks gestation of Z3A.11 [facility] [id number] [place] [address] 00998- 5556 Apr, [facility] [id number] [place] [address] 18877- 8516 Apr, [facility] [address] [id number] Apr, Dental caries K02.9 [facility] [id number] [place] [address] 80047- 3450 Apr, [facility] [id number] [place] [address] 88925 -7524 Apr, Oral infection K12.2 and Missed period N92.6 [place] [address] 70998- 3463 Feb, [facility] [id number] [place] [address] 15275- 4417 January, [place] [address] 56363- 4574 Nov, [place] [id number] [place] [address] 51982- 6256 Nov, Screening for deficiency anemia Z13.0 [place] [id number] [place] [address] 54605- 8909 Nov, [place] [id number] [place] [address] 88502- 0559 Nov, [place] [address] 11710- 1501 Nov, care in third trimester Z34.93 and 35 weeks gestation of Z3A.35 [place] [id number] [place] [address] 33040- 1529 Oct, [place] [id number] [place] [address] 15736- 9488 Oct, care in third trimester Z34.93 ; Encounter for immunization Z23 and 33 weeks gestation of Z3A.33 [place] [id number] [place] [address] 70036- 8750 Sep, care in second trimester Z34.92 and 29 weeks gestation of Z3A.29 [place] [id number] [place] [address] 11380- 1051 Aug, Dental examination Z01.20 [place] [id number] [place] [address] 96178- 2046 Aug, Dental examination Z01.20 [place] [address] [facility] [id number] [address]- 3759 14 Aug, 2017 Second trimester Z34.92 and 14 weeks gestation of Z3A.14 [facility] [address] [facility] [id number]- 2536 14 Aug, 2017 [facility] [address] [address]- 2461 Jul, care in first trimester Z34.91 and Normal in multigravida Z34.80 [facility] [address] [id number] [address]- 6963 Jul, [facility] [id number] [place] [address] 16356- 7391 Jul, [facility] [address] [address]- 5362 Jun, [facility] [id number] [place] [address] [id number] Jun, Dental examination Z01.20 [facility] [id number] [place] [address] [id number] Jun, Dental examination Z01.20 [facility] [address] [address]- 8046 January, Dental examination Z01.20 [facility] [address] [id number] [address]- 0966 Dec, Dental examination Z01.20 [facility] [address] [id number] [address]- 4566 Dec, Dental examination Z01.20 [facility] [address] [facility] [id number] [place] [address]- 1366 Nov, Dental examination Z01.20 and Periodontitis K05.30 [facility] [address] [address]- 8856 Nov, [facility] [address] [facility] [id number] [address]- 4040 Nov, Acute mastitis of left breast N61.0 and Acute nonintractable headache, unspecified headache type R51 IMMUNIZATIONS No Known Immunizations SOCIAL HISTORY Never Assessed REASON FOR VISIT OB-intake -- nirav baum PLAN OF CARE Activity Details Follow Up 4W, 4 Weeks, 4 Weeks, 4 Weeks Reason: Pending Test Ultrasound : OB, Early <14 WEEKS VITAL SIGNS Height 5'2" in 2018-05-05 Weight 141.0 lbs 2018-05-05 Temperature 98.0 degrees Fahrenheit 2018-05-05 Heart Rate 78 bpm 2018-05-05 Respiratory Rate 18 2018-05-05 BMI 25.79 kg/m2 2018-05-05 Blood pressure systolic 112 mmHg 2018-05-05 Blood pressure diastolic 78 mmHg 2018-05-05 MEDICATIONS Medication Instructions Dosage Frequency Start Date End Date Duration Status Vitamin 27-0.8 MG Active RESULTS No Results PROCEDURES Procedure Date Ordered Result Body Site URINALYSIS, AUTO, W/O SCOPE May 05, 2018 URINE CULTURE/COLONY COUNT May 05, 2018 TRICHOMONAS ASSAY W/OPTIC May 05, 2018 DRUG TEST PRSMV DIR OPT OBS May 05, 2018 CULTURE, BACTERIA, OTHER May 05, 2018 INSTRUCTIONS MEDICATIONS ADMINISTERED No Known Medications MEDICAL (GENERAL) HISTORY Type Description Date Medical History denies Hospitalization History Anemia 02/2014
--- OUTSIDE RECORDS SUMMARY | 2018-11-26 01:44 | XMS REPORT ---
Author Author ANNA FREDI [facility] Address [address] [place] [address] Care Team Providers Care Operations Supervisor Name Role Phone ANNATORREY CHILDSHANY Unavailable PROBLEMS Type Condition ICD9-CM Code IVB75-GQ Code Onset Dates Condition Status SNOMED Code Problem Missed period N92.6 Active 64659148 Problem Periodontitis K05.30 Active 63813360 ALLERGIES No Information ENCOUNTERS Encounter Location Date Diagnosis [facility] [id number] [place] [address] 15662- 8383 May, Normal in multigravida Z34.80 ; Second trimester Z34.92 and Low TSH level R79.89 [place] [id number] [place] [address] 51538- 6807 May, [place] [id number] [place] [address] 41251- 2592 May, [place] [id number] [place] [address] 54386- 1707 May, Normal in multigravida Z34.80 [facility] [id number] [place] [address] 86603- 8241 Apr, Normal in multigravida Z34.80 [facility] [address] [place] [address] 60679- 8977 Apr, Normal in multigravida Z34.80 and 11 weeks gestation of Z3A.11 [facility] [id number] [place] [address] 16454- 3117 Apr, [place] [id number] [place] [address] 96904- 9048 Apr, [facility] [address] [id number] Apr, Dental caries K02.9 [facility] [id number] [place] [address] 09230- 1266 Apr, [facility] [id number] [place] [address] 40402 -1403 Apr, Oral infection K12.2 and Missed period N92.6 [facility] [id number] [place] [address] 53512- 5146 Feb, [facility] [id number] [place] [address] 52117- 3545 January, [facility] [id number] [place] [address] 14106- 5581 Nov, [facility] [id number] [place] [address] 30675- 3451 Nov, Screening for deficiency anemia Z13.0 [facility] [id number] [place] [address] 97047- 6290 Nov, [facility] [id number] [place] [address] 05522- 6470 Nov, [facility] [address] [place] [address] 58891- 9133 Nov, care in third trimester Z34.93 and 35 weeks gestation of Z3A.35 [facility] [address], [place] [address]- 3843 Oct, [facility] [id number] [place] [address] 35900- 0835 Oct, care in third trimester Z34.93 ; Encounter for immunization Z23 and 33 weeks gestation of Z3A.33 [facility] [address], [place] [address]- 4147 Sep, care in second trimester Z34.92 and 29 weeks gestation of Z3A.29 [facility] [address], [place] [address]- 8831 Aug, Dental examination Z01.20 [facility] [address] [place] [address] 42030- 7120 Aug, Dental examination Z01.20 [facility] [id number] [place] [address] 17202- 6790 Aug, Second trimester Z34.92 and 14 weeks gestation of Z3A.14 [facility] [id number] [place] [address] 40221- 0091 Aug, [facility] [id number] [place] [address] 14510- 5763 Jul, care in first trimester Z34.91 and Normal in multigravida Z34.80 [facility] [id number] [place] [address] 24850- 6740 Jul, [facility] [address] [place] [address] 51712- [phone] Jul, [facility] [id number] [place] [address] 92158- 8153 Jun, [facility] [id number] [place] [address] [id number] Jun, Dental examination Z01.20 [facility] [id number] [place] [address] [id number] Jun, Dental examination Z01.20 [facility] [id number] [place] [address] [phone]- 2734 January, Dental examination Z01.20 [facility] [id number] [place] [address] 73849- 1277 Dec, Dental examination Z01.20 [facility] [id number] [place] [address] 47438- 2469 Dec, Dental examination Z01.20 [facility] [address] [id number] [address] Nov, Dental examination Z01.20 and Periodontitis K05.30 [facility] [id number] [address] Nov, [facility] [id number] [address] Nov, Acute mastitis of left breast N61.0 and Acute nonintractable headache, unspecified headache type R51 IMMUNIZATIONS No Known Immunizations SOCIAL HISTORY Never Assessed REASON FOR VISIT Deferred lab PLAN OF CARE VITAL SIGNS MEDICATIONS Unknown Medications RESULTS No Results PROCEDURES No Known procedures INSTRUCTIONS MEDICATIONS ADMINISTERED No Known Medications MEDICAL (GENERAL) HISTORY Type Description Date Medical History denies Hospitalization History Anemia 02/2014
--- OUTSIDE RECORDS SUMMARY | 2018-11-26 01:44 | XMS REPORT ---
Author Author ANNA FREDI [facility] Address [address] [place] [address] Care Team Providers Care Copy Holder Name Role Phone ANNATORREYFREDI Unavailable PROBLEMS Type Condition ICD9-CM Code [id number] Code Onset Dates Condition Status SNOMED Code Problem Missed period N92.6 Active 67929412 Problem Periodontitis K05.30 Active 75342981 ALLERGIES No Information ENCOUNTERS Encounter Location Date Diagnosis [place] [id number] [place] [address] 48372- 2851 Jun, [place] [id number] [place] [address] 46669- 6718 Jun, [place] [id number] [place] [address] 51194- 7474 Jun, [place] [id number] [place] [address] 30460- 3404 May, Normal in multigravida Z34.80 ; Second trimester Z34.92 ; Low TSH level R79.89 ; 16 weeks gestation of Z3A.16 and History of delivery, currently O09.219 [place] [id number] [place] [address] 07830- 1286 May, [place] [id number] [place] [address] 80722- 7810 May, [place] [id number] [place] [address] 14751- 7068 May, Normal in multigravida Z34.80 [place] [id number] [place] [address] 49122- 4453 Apr, Normal in multigravida Z34.80 [facility] [id number] [place] [address] 76783- 7039 Apr, Normal in multigravida Z34.80 and 11 weeks gestation of Z3A.11 [facility] [id number] [place] [address] 73045- 1881 Apr, [facility] [id number] [place] [address] 59229- 0551 Apr, [facility] [id number] [place] [address] [id number] Apr, Dental caries K02.9 [facility] [address] 09474- 4252 Apr, [facility] [id number] [place] [address] 81275 -7897 Apr, Oral infection K12.2 and Missed period N92.6 [facility] [id number] [place] [address] 79917- 9268 Feb, [facility] [id number] [place] [address] 73881- 3506 January, [facility] [id number] [place] [address] 01187- 6614 Nov, [facility] [id number] [place] [address] 27168- 8569 Nov, Screening for deficiency anemia Z13.0 [facility] [id number] [place] [address] 27986- 8257 Nov, [facility] [id number] [place] [address] 58281- 1234 Nov, [facility] [id number] [place] [address] 75607- 5119 Nov, care in third trimester Z34.93 and 35 weeks gestation of Z3A.35 [facility] [id number] [place] [address] 99167- 5042 Oct, [facility] [id number] [place] [address] 15923- 1384 Oct, care in third trimester Z34.93 ; Encounter for immunization Z23 and 33 weeks gestation of Z3A.33 [facility] [id number] [place] [address] 25042- 1494 Sep, care in second trimester Z34.92 and 29 weeks gestation of Z3A.29 [facility] [id number] [place] [address] 53127- 4147 19 Aug, 2017 Dental examination Z01.20 [facility] [id number] [place] [address] 83412- 3877 Aug, Dental examination Z01.20 [facility] [id number] [place] [address] 24236- 8081 Aug, Second trimester Z34.92 and 14 weeks gestation of Z3A.14 [facility] [id number] [place] [address] 59521- 5743 Aug, [facility] [id number] [place] [address] 41700- 3626 Jul, care in first trimester Z34.91 and Normal in multigravida Z34.80 [facility] [id number] [place] [address] 28019- 5353 Jul, [facility] [id number] [place] [address] 02184- 1184 Jul, [facility] [address] [place] [address] 74943- 4358 Jun, [facility] [id number] [place] [address] [id number] Jun, Dental examination Z01.20 [facility] [id number] [place] [address] [phone] Jun, Dental examination Z01.20 [facility] [address] [address]- 8628 January, Dental examination Z01.20 [facility] [address] [address]- 2271 Dec, Dental examination Z01.20 [facility] [id number] [address]- 5857 Dec, Dental examination Z01.20 [facility] [id number] [place] [address] 63933- 4748 Nov, Dental examination Z01.20 and Periodontitis K05.30 [place] [id number] [place] [address] 46829- 8222 Nov, [place] [id number] [place] [address] 52899- 5211 Nov, Acute mastitis of left breast N61.0 and Acute nonintractable headache, unspecified headache type R51 IMMUNIZATIONS No Known Immunizations SOCIAL HISTORY Never Assessed REASON FOR VISIT Requests return call PLAN OF CARE VITAL SIGNS MEDICATIONS Unknown Medications RESULTS No Results PROCEDURES No Known procedures INSTRUCTIONS MEDICATIONS ADMINISTERED No Known Medications MEDICAL (GENERAL) HISTORY Type Description Date Medical History denies Hospitalization History Anemia 02/2014
--- OUTSIDE RECORDS SUMMARY | 2018-11-26 01:45 | XMS REPORT ---
Author Author ANNA FREDI [facility] Address [address] [place] [address] Care Team Providers Care Microfilming Document Preparer Name Role Phone ANNATAZ CHILDSY Unavailable PROBLEMS Type Condition ICD9-CM Code [id number] Code Onset Dates Condition Status SNOMED Code Problem Missed period N92.6 Active 27559128 Problem Periodontitis K05.30 Active 97212004 ALLERGIES No Information ENCOUNTERS Encounter Location Date Diagnosis [facility] [id number] [place] [address] 06133- 4480 May, [facility] [address] 36254- 7432 May, [facility] [id number] [place] [address] 39695- 2904 May, Normal in multigravida Z34.80 [facility] [id number] [place] [address] 49882- 4649 Apr, Normal in multigravida Z34.80 [facility] [id number] [place] [address] 76929- 9208 Apr, Normal in multigravida Z34.80 and 11 weeks gestation of Z3A.11 [facility] [id number] [place] [address] 84855- 6542 Apr, [facility] [address] 93764- 4232 Apr, [facility] [id number] [place] [address] [id number] Apr, Dental caries K02.9 [facility] [address] 11490- 6041 Apr, [facility] [address] [address] -7527 Apr, Oral infection K12.2 and Missed period N92.6 [facility] [id number] [address]- 0962 Feb, [facility] [id number] [place] [address] 45987- 3322 January, [facility] [id number] [place] [address] 20729- 2313 Nov, [place] [id number] [place] [address] 65418- 5745 Nov, Screening for deficiency anemia Z13.0 [place] [id number] [place] [address] 03602- 9527 Nov, [facility] [id number] [place] [address] 27305- 7001 Nov, [facility] [id number] [place] [address] 57205- 6677 Nov, care in third trimester Z34.93 and 35 weeks gestation of Z3A.35 [place] [address] [place] [address] 96492- 1176 Oct, [facility] [address] [place] [address] 35650- 9300 Oct, care in third trimester Z34.93 ; Encounter for immunization Z23 and 33 weeks gestation of Z3A.33 [place] [id number] [place] [address] 91322- 9970 Sep, care in second trimester Z34.92 and 29 weeks gestation of Z3A.29 [facility] [address], [place] [address]- 6284 Aug, Dental examination Z01.20 [place] [address] [place] [address]- 4861 14 Aug, 2017 Dental examination Z01.20 [facility] [id number] [place] [address] 25915- 0730 14 Aug, 2017 Second trimester Z34.92 and 14 weeks gestation of Z3A.14 [facility] [address] [place] [address] 13254- 9720 14 Aug, 2017 [facility] [id number] [place] [address] 68033- 2358 15 Jul, 2017 care in first trimester Z34.91 and Normal in multigravida Z34.80 [facility] [id number] [place] [address] 73617- 5787 Jul, [facility] [id number] [place] [address] 46545- 9178 Jul, [facility] [id number] [place] [address] 59282- 4965 Jun, [facility] [address] [place] [address] [id number] Jun, Dental examination Z01.20 [facility] [address] [place] [address] [phone] Jun, Dental examination Z01.20 [facility] [address] [place] [address] 13417- 3536 January, Dental examination Z01.20 [facility] [address] [address]- 7101 Dec, Dental examination Z01.20 [facility] [id number] [place] [address] 827314- 8529 Dec, Dental examination Z01.20 [facility] [address], [place] [address]- 7853 Nov, Dental examination Z01.20 and Periodontitis K05.30 [facility] [id number] [address]- 5452 Nov, [facility] [address] [facility] [id number] [place] [address]- 5371 Nov, Acute mastitis of left breast N61.0 and Acute nonintractable headache, unspecified headache type R51 IMMUNIZATIONS No Known Immunizations SOCIAL HISTORY Never Assessed REASON FOR VISIT Lab (walk-in) PLAN OF CARE VITAL SIGNS MEDICATIONS Unknown Medications RESULTS No Results PROCEDURES Procedure Date Ordered Result Body Site No Charge May 09, 2018 COMPLETE CBC W/AUTO DIFF WBC May 09, 2018 RUBELLA ANTIBODY May 09, 2018 BLOOD TYPING, ABO May 09, 2018 BLOOD TYPING, RH (D) May 09, 2018 ASSAY THYROID STIM HORMONE May 09, 2018 RBC ANTIBODY SCREEN May 09, 2018 INSTRUCTIONS MEDICATIONS ADMINISTERED No Known Medications MEDICAL (GENERAL) HISTORY Type Description Date Medical History denies Hospitalization History Anemia 02/2014
--- OUTSIDE RECORDS SUMMARY | 2018-11-26 01:45 | XMS REPORT ---
Author Author NED RITCHIE Organization [facility] Address [address] [place] [address] Care Team Providers Care Director Style Name Role Phone NED RITCHIE Unavailable PROBLEMS Type Condition ICD9-CM Code JFS39-SM Code Onset Dates Condition Status SNOMED Code Problem Missed period N92.6 Active 34179332 Problem Periodontitis K05.30 Active 98982014 ALLERGIES No Information ENCOUNTERS Encounter Location Date Diagnosis [facility] [address] 23836- 8146 May, [facility] [address] 56141- 6826 May, [facility] [address] 79095- 2234 Apr, Normal in multigravida Z34.80 [facility] [address] 40506- 7085 Apr, Normal in multigravida Z34.80 and 11 weeks gestation of Z3A.11 [place] [id number] [place] [address] 68864- 5414 Apr, [facility] [id number] [place] [address] 63498- 4994 Apr, [facility] [address] [id number] Apr, Dental caries K02.9 [facility] [id number] [place] [address] 73660- 0972 Apr, [facility] [address] 20885 -3271 Apr, Oral infection K12.2 and Missed period N92.6 [facility] [id number] [place] [address] 82557- 6272 Feb, [facility] [address] 45648- 5570 January, [facility] [id number] [place] [address] 39448- 8885 Nov, [facility] [address] 17594- 2786 Nov, Screening for deficiency anemia Z13.0 [place] [address] 87461- 8805 Nov, [place] [address] 54329- 4599 Nov, [place] [address] 23192- 8103 Nov, care in third trimester Z34.93 and 35 weeks gestation of Z3A.35 [place] [id number] [place] [address] 17055- 9412 Oct, [place] [id number] [place] [address] 31607- 3869 Oct, care in third trimester Z34.93 ; Encounter for immunization Z23 and 33 weeks gestation of Z3A.33 [place] [id number] [place] [address] 50867- 7870 Sep, care in second trimester Z34.92 and 29 weeks gestation of Z3A.29 [place] [id number] [place] [address] 00335- 4590 Aug, Dental examination Z01.20 [place] [id number] [place] [address] 88525- 6776 14 Aug, 2017 Dental examination Z01.20 [place] [id number] [place] [address] 56557- 8431 14 Aug, 2017 Second trimester Z34.92 and 14 weeks gestation of Z3A.14 [facility] [address] [place] [address] 009418- 5532 14 Aug, 2017 [facility] [address], [place] [address]- 0263 15 Jul, 2017 care in first trimester Z34.91 and Normal in multigravida Z34.80 [facility] [address] [facility] [id number] [address]- 4088 Jul, [facility] [id number] [place] [address] 67049- 8795 Jul, [facility] [id number] [place] [address] 60630- 2459 Jun, [facility] [id number] [place] [address] [id number] Jun, Dental examination Z01.20 [facility] [id number] [place] [address] [id number] Jun, Dental examination Z01.20 [facility] [address] [place] [address] 91701- 9386 January, Dental examination Z01.20 [facility] [address], [place] [address]- 1231 Dec, Dental examination Z01.20 [facility] [address], [place] [address]- 4956 Dec, Dental examination Z01.20 [facility] [id number] [place] [address] 53737- 8676 Nov, Dental examination Z01.20 and Periodontitis K05.30 [facility] [id number], [place] [address]- 7175 Nov, [facility] [address] [place] [address] 38555- 4561 Nov, Acute mastitis of left breast N61.0 and Acute nonintractable headache, unspecified headache type R51 IMMUNIZATIONS No Known Immunizations SOCIAL HISTORY Never Assessed REASON FOR VISIT PLAN OF CARE VITAL SIGNS MEDICATIONS Unknown Medications RESULTS No Results PROCEDURES No Known procedures INSTRUCTIONS MEDICATIONS ADMINISTERED No Known Medications MEDICAL (GENERAL) HISTORY Type Description Date Medical History denies Hospitalization History Anemia 02/2014
--- OUTSIDE RECORDS SUMMARY | 2018-11-26 01:45 | XMS REPORT ---
Author Author LENKA WANG Organization [facility] Address [address] [place] [address] Care Team Providers Care Distribution Field Technician Name Role Phone LENKA WANG Unavailable PROBLEMS Type Condition ICD9-CM Code FJJ96-PT Code Onset Dates Condition Status SNOMED Code Problem Missed period N92.6 Active 86469588 Problem Periodontitis K05.30 Active 91160114 ALLERGIES No Information ENCOUNTERS Encounter Location Date Diagnosis [place] [id number] [place] [address] 34070- 4740 May, [facility] [address] 16647- 8667 May, [facility] [id number] [place] [address] 72326- 4534 May, Normal in multigravida Z34.80 [facility] [id number] [place] [address] 77139- 5622 Apr, Normal in multigravida Z34.80 [facility] [id number] [place] [address] 84390- 9528 Apr, Normal in multigravida Z34.80 and 11 weeks gestation of Z3A.11 [facility] [id number] [place] [address] 77659- 5278 Apr, [facility] [id number] [place] [address] 29608- 4658 Apr, [facility] [id number] [place] [address] [id number] Apr, Dental caries K02.9 [facility] [address] [place] [address]- 7001 Apr, [facility] [id number] [place] [address] 15724 -4232 Apr, Oral infection K12.2 and Missed period N92.6 [facility] [id number] [place] [address] 53559- 7715 Feb, [facility] [address] 07105- 9647 January, [facility] [id number] [place] [address] 62629- 0506 Nov, [facility] [address] 42557- 6798 Nov, Screening for deficiency anemia Z13.0 [facility] [id number] [place] [address] 58661- 5282 Nov, [facility] [id number] [place] [address] 35426- 7140 Nov, [facility] [id number] [place] [address] 92171- 2727 Nov, care in third trimester Z34.93 and 35 weeks gestation of Z3A.35 [facility] [id number] [place] [address] 92975- 9444 Oct, [facility] [id number] [place] [address] 45132- 3089 Oct, care in third trimester Z34.93 ; Encounter for immunization Z23 and 33 weeks gestation of Z3A.33 [place] [address] 85861- 2904 Sep, care in second trimester Z34.92 and 29 weeks gestation of Z3A.29 [facility] [id number] [place] [address] 21384- 5984 Aug, Dental examination Z01.20 [place] [address] [address]- 1965 14 Aug, 2017 Dental examination Z01.20 [facility] [id number] [place] [address] 41109- 5067 14 Aug, 2017 Second trimester Z34.92 and 14 weeks gestation of Z3A.14 [facility] [id number] [place] [address] 98926- 3322 14 Aug, 2017 [facility] [id number] [place] [address] 49415- 3542 15 Jul, 2017 care in first trimester Z34.91 and Normal in multigravida Z34.80 [place] [id number] [place] [address] 13952- 9055 Jul, [facility] [id number] [place] [address] 24536- 5706 Jul, [facility] [address] [place] [address] 52699- 7150 Jun, [facility] [id number] [place] [address] [id number] Jun, Dental examination Z01.20 [facility] [id number] [place] [address] [id number] Jun, Dental examination Z01.20 [facility] [address] [place] [address] 60357- 2582 January, Dental examination Z01.20 [facility] [address] [place] [address] 15211- 9318 Dec, Dental examination Z01.20 [facility] [id number] [place] [address] 46093- 1126 Dec, Dental examination Z01.20 [facility] [address], [place] [address]- 9490 Nov, Dental examination Z01.20 and Periodontitis K05.30 [facility] [id number] [address]- 4527 Nov, [facility] [address] [facility] [id number] [place] [address]- 6591 Nov, Acute mastitis of left breast N61.0 and Acute nonintractable headache, unspecified headache type R51 IMMUNIZATIONS No Known Immunizations SOCIAL HISTORY Never Assessed REASON FOR VISIT Returned call PLAN OF CARE VITAL SIGNS MEDICATIONS Unknown Medications RESULTS No Results PROCEDURES No Known procedures INSTRUCTIONS MEDICATIONS ADMINISTERED No Known Medications MEDICAL (GENERAL) HISTORY Type Description Date Medical History denies Hospitalization History Anemia 02/2014
--- OUTSIDE RECORDS SUMMARY | 2018-11-26 01:45 | XMS REPORT ---
Author Author LENKA WANG Organization [facility] Address [address] [place] [address] Care Team Providers Care Ferryboat Deckhand Name Role Phone LENKA WANG Unavailable PROBLEMS Type Condition ICD9-CM Code ZVK66-UO Code Onset Dates Condition Status SNOMED Code Problem Missed period N92.6 Active 92097454 Problem Periodontitis K05.30 Active 89918863 ALLERGIES No Known Allergies ENCOUNTERS Encounter Location Date Diagnosis [place] [id number] [place] [address] 68112- 4044 May, [facility] [id number] [place] [address] 98846- 3657 May, [facility] [id number] [place] [address] 44948- 2717 May, Normal in multigravida Z34.80 [facility] [id number] [place] [address] 99558- 2495 Apr, Normal in multigravida Z34.80 [facility] [id number] [place] [address] 61340- 4651 Apr, Normal in multigravida Z34.80 and 11 weeks gestation of Z3A.11 [facility] [id number] [place] [address] 48003- 2745 Apr, [facility] [id number] [place] [address] 25390- 6898 Apr, [facility] [id number] [place] [address] [id number] Apr, Dental caries K02.9 [facility] [address] [place] [address]- 0645 Apr, [facility] [id number] [place] [address] 79751 -3174 Apr, Oral infection K12.2 and Missed period N92.6 [facility] [id number] [place] [address] 46571- 8968 Feb, [facility] [address] 95767- 2620 January, [facility] [id number] [place] [address] 89423- 4180 Nov, [facility] [address] 73025- 2726 Nov, Screening for deficiency anemia Z13.0 [place] [facility] [id number] [place] [address] 65935- 1530 Nov, [facility] [id number] [place] [address] 66671- 5063 Nov, [facility] [id number] [place] [address] 51932- 6842 Nov, care in third trimester Z34.93 and 35 weeks gestation of Z3A.35 [place] [facility] [id number] [place] [address] 63697- 6360 Oct, [facility] [id number] [place] [address] 74845- 1418 Oct, care in third trimester Z34.93 ; Encounter for immunization Z23 and 33 weeks gestation of Z3A.33 [place] [id number] [place] [address] 94202- 4061 Sep, care in second trimester Z34.92 and 29 weeks gestation of Z3A.29 [place] [id number] [place] [address] 44301- 4957 Aug, Dental examination Z01.20 [place] [facility] [address] [address]- 5884 14 Aug, 2017 Dental examination Z01.20 [facility] [id number] [place] [address] 60529- 2248 14 Aug, 2017 Second trimester Z34.92 and 14 weeks gestation of Z3A.14 [facility] [id number] [place] [address] 54608- 7507 14 Aug, 2017 [facility] [id number] [place] [address] 02309- 4475 Jul, care in first trimester Z34.91 and Normal in multigravida Z34.80 [place] [id number] [place] [address] 42652- 7300 Jul, [facility] [id number] [place] [address] 48095- 5816 Jul, [facility] [id number] [place] [address] 61688- 4235 Jun, [facility] [id number] [place] [address] [id number] Jun, Dental examination Z01.20 [facility] [address] [id number] [id number] Jun, Dental examination Z01.20 [facility] [id number] [place] [address] 06430- 9548 January, Dental examination Z01.20 [facility] [address], [place] [address] 4601 Dec, Dental examination Z01.20 [facility] [id number] [place] [address] 38527- 0341 Dec, Dental examination Z01.20 [facility] [address], [place] [address]- 7550 Nov, Dental examination Z01.20 and Periodontitis K05.30 [facility] [address] [facility] [id number] [place] [address]- 8480 Nov, [facility] [address] [facility] [id number] [place] [address]- 9086 Nov, Acute mastitis of left breast N61.0 and Acute nonintractable headache, unspecified headache type R51 IMMUNIZATIONS No Known Immunizations SOCIAL HISTORY Never Assessed REASON FOR VISIT tooth ache on top back left side for 3 days. hasnt had a menstural period in 2 years. would like [email or web address] PLAN OF CARE Activity Details Follow Up 2 - 3 Days Reason: VITAL SIGNS Height 5'2" in 2018-04-14 Weight 141.8 lbs 2018-04-14 Temperature 98.0 degrees Fahrenheit 2018-04-14 Heart Rate 80 bpm 2018-04-14 Respiratory Rate 20 2018-04-14 BMI 25.93 kg/m2 2018-04-14 Blood pressure systolic 112 mmHg 2018-04-14 Blood pressure diastolic 70 mmHg 2018-04-14 MEDICATIONS Medication Instructions Dosage Frequency Start Date End Date Duration Status Vitamin 27-0.8 MG Active Amoxicillin 500 MG Orally every 8 hrs 1 tablet 8h 10 day(s) Active RESULTS Name Result Date Reference Range TEST, URINE (IN HOUSE) 2018-04-14 RESULTS positive Lot # [id number] Control + Exp date 2018 PROCEDURES Procedure Date Ordered Result Body Site URINE TEST Apr 14, 2018 INSTRUCTIONS MEDICATIONS ADMINISTERED No Known Medications MEDICAL (GENERAL) HISTORY Type Description Date Medical History denies Hospitalization History Anemia 02/2014
--- OUTSIDE RECORDS SUMMARY | 2018-11-26 01:45 | XMS REPORT ---
Author Author NED RITCHIE Organization [facility] Address [address] [place] [address] Care Team Providers Care Lung Splitter Name Role Phone NED RITCHIE Unavailable PROBLEMS Type Condition ICD9-CM Code PVG21-OF Code Onset Dates Condition Status SNOMED Code Problem Missed period N92.6 Active 14526811 Problem Periodontitis K05.30 Active 28783343 ALLERGIES No Information ENCOUNTERS Encounter Location Date Diagnosis [facility] [address] 70532- 4062 May, [facility] [address] 17592- 1994 May, [facility] [address] 35313- 5987 Apr, Normal in multigravida Z34.80 [facility] [address] 37523- 5064 Apr, Normal in multigravida Z34.80 and 11 weeks gestation of Z3A.11 [place] [id number] [place] [address] 79936- 2420 Apr, [facility] [id number] [place] [address] 88783- 5310 Apr, [facility] [address] [id number] Apr, Dental caries K02.9 [facility] [id number] [place] [address] 74615- 0832 Apr, [facility] [address] 52703 -5710 Apr, Oral infection K12.2 and Missed period N92.6 [facility] [id number] [place] [address] 14527- 6172 Feb, [facility] [address] 21673- 8359 January, [facility] [id number] [place] [address] 67310- 4295 Nov, [facility] [address] 71709- 9373 Nov, Screening for deficiency anemia Z13.0 [place] [address] 22134- 2775 Nov, [place] [facility] [address] 57591- 8550 Nov, [place] [facility] [address] 79184- 9111 Nov, care in third trimester Z34.93 and 35 weeks gestation of Z3A.35 [place] [id number] [place] [address] 36627- 6243 Oct, [place] [id number] [place] [address] 13600- 6635 Oct, care in third trimester Z34.93 ; Encounter for immunization Z23 and 33 weeks gestation of Z3A.33 [place] [id number] [place] [address] 29717- 9173 Sep, care in second trimester Z34.92 and 29 weeks gestation of Z3A.29 [place] [id number] [place] [address] 93229- 1518 Aug, Dental examination Z01.20 [place] [id number] [place] [address] 33287- 0869 14 Aug, 2017 Dental examination Z01.20 [place] [id number] [place] [address] 13091- 7899 14 Aug, 2017 Second trimester Z34.92 and 14 weeks gestation of Z3A.14 [facility] [address] [place] [address] 094847- 5897 14 Aug, 2017 [facility] [address], [place] [address]- 2669 15 Jul, 2017 care in first trimester Z34.91 and Normal in multigravida Z34.80 [facility] [address] [facility] [id number] [address]- 4473 Jul, [facility] [id number] [place] [address] 41915- 2457 Jul, [facility] [id number] [place] [address] 54372- 1147 Jun, [facility] [id number] [place] [address] [id number] Jun, Dental examination Z01.20 [facility] [id number] [place] [address] [id number] Jun, Dental examination Z01.20 [facility] [address] [place] [address] 05297- 4416 January, Dental examination Z01.20 [facility] [address], [place] [address]- 0105 Dec, Dental examination Z01.20 [facility] [place] [address], [place] [address]- 5816 Dec, Dental examination Z01.20 [facility] [place] [id number] [place] [address] 24754- 9676 Nov, Dental examination Z01.20 and Periodontitis K05.30 [facility] [place] [id number], [place] [address]- 6010 Nov, [facility] [address] [place] [address] 59304- 2269 Nov, Acute mastitis of left breast N61.0 [...]
--- OUTSIDE RECORDS SUMMARY | 2018-11-26 01:45 | XMS REPORT ---
Author Author NED RITCHIE Organization [facility] Address [address] [place] [address] Care Team Providers Care Performance Makeup Artist Name Role Phone NED RITCHIE Unavailable PROBLEMS Type Condition ICD9-CM Code BXN24-UT Code Onset Dates Condition Status SNOMED Code Problem Missed period N92.6 Active 35713302 Problem Periodontitis K05.30 Active 27234401 ALLERGIES No Known Allergies ENCOUNTERS Encounter Location Date Diagnosis [facility] [id number] [place] [address] 41570- 5903 May, [facility] [address] 36148- 2829 May, [facility] [id number] [place] [address] 28729- 8053 May, Normal in multigravida Z34.80 [facility] [id number] [place] [address] 26379- 2261 Apr, Normal in multigravida Z34.80 [facility] [id number] [place] [address] 96339- 1724 Apr, Normal in multigravida Z34.80 and 11 weeks gestation of Z3A.11 [facility] [id number] [place] [address] 76609- 8433 Apr, [facility] [address] 03539- 1617 Apr, [facility] [id number] [place] [address] [id number] Apr, Dental caries K02.9 [facility] [address] 57133- 2626 Apr, [facility] [address] [place] [address] 01456 -3371 Apr, Oral infection K12.2 and Missed period N92.6 [facility] [id number] [place] [address] 40770- 8601 Feb, [facility] [id number] [place] [address] 53284- 1465 January, [facility] [id number] [place] [address] 52848- 1404 Nov, [place] [address] 26520- 4922 Nov, Screening for deficiency anemia Z13.0 [place] [id number] [place] [address] 11706- 0890 Nov, [facility] [id number] [place] [address] 62506- 0268 Nov, [facility] [id number] [place] [address] 36856- 5981 Nov, care in third trimester Z34.93 and 35 weeks gestation of Z3A.35 [facility] [id number] [place] [address] 58373- 1308 Oct, [facility] [id number] [place] [address] 53425- 4421 Oct, care in third trimester Z34.93 ; Encounter for immunization Z23 and 33 weeks gestation of Z3A.33 [place] [id number] [place] [address] 51647- 5589 Sep, care in second trimester Z34.92 and 29 weeks gestation of Z3A.29 [place] [id number] [place] [address] 79498- 1056 Aug, Dental examination Z01.20 [place] [address] [place] [address]- 2815 14 Aug, 2017 Dental examination Z01.20 [facility] [id number] [place] [address] 41785- 7076 14 Aug, 2017 Second trimester Z34.92 and 14 weeks gestation of Z3A.14 [facility] [id number] [place] [address] 86117- 7376 14 Aug, 2017 [facility] [id number] [place] [address] 74041- 8871 15 Jul, 2017 care in first trimester Z34.91 and Normal in multigravida Z34.80 [facility] [id number] [place] [address] 23474- 2037 Jul, [facility] [id number] [place] [address] 64807- 2232 Jul, [facility] [id number] [place] [address] 66815- 0210 Jun, [facility] [address] [place] [address] [id number] Jun, Dental examination Z01.20 [facility] [address] [place] [address] [id number] Jun, Dental examination Z01.20 [facility] [address] [place] [address] 95671- 2151 January, Dental examination Z01.20 [facility] [address] [address]- 0139 Dec, Dental examination Z01.20 [facility] [id number] [place] [address] 303704- 1831 Dec, Dental examination Z01.20 [facility] [address] [address]- 5406 Nov, Dental examination Z01.20 and Periodontitis K05.30 [facility] [id number] [place] [address], [place] [address]- 0655 Nov, [facility] [address] [facility] [id number] [place] [address]- 2404 Nov, Acute mastitis of left breast N61.0 and Acute nonintractable headache, unspecified headache type R51 IMMUNIZATIONS No Known Immunizations SOCIAL HISTORY Never Assessed REASON FOR VISIT OB Flowsheet History -- nirav baum PLAN OF CARE VITAL SIGNS MEDICATIONS Medication Instructions Dosage Frequency Start Date End Date Duration Status Vitamin 27-0.8 MG Active Amoxicillin 500 MG Orally every 8 hrs 1 tablet 8h 10 day(s) Active RESULTS No Results PROCEDURES No Known procedures INSTRUCTIONS MEDICATIONS ADMINISTERED No Known Medications MEDICAL (GENERAL) HISTORY Type Description Date Medical History denies Hospitalization History Anemia 02/2014
--- OUTSIDE RECORDS SUMMARY | 2018-11-26 01:45 | XMS REPORT ---
Author Author NED RITCHIE Organization [facility] Address [address] [place] [address] Care Team Providers Care Securities Counselor Name Role Phone NED RITCHIE Unavailable PROBLEMS Type Condition ICD9-CM Code MOK85-UV Code Onset Dates Condition Status SNOMED Code Problem Periodontitis K05.30 Active 81288795 ALLERGIES No Information ENCOUNTERS Encounter Location Date Diagnosis [place] [address] 6[address]35- 6427 Feb, [place] [address] 79431- 5474 January, [place] [address] 82635- 2084 Nov, [place] [address] 88375- 0482 Nov, Screening for deficiency anemia Z13.0 [place] [id number] [place] [address] 42792- 7032 Nov, [place] [id number] [place] [address] 02087- 5362 Nov, [place] [id number] [place] [address] 50104- 5496 Nov, care in third trimester Z34.93 and 35 weeks gestation of Z3A.35 [place] [address] 98700- 0888 Oct, [place] [id number] [place] [address] 80176- 7594 Oct, care in third trimester Z34.93 ; Encounter for immunization Z23 and 33 weeks gestation of Z3A.33 [facility] [address] [address]- 8179 Sep, care in second trimester Z34.92 and 29 weeks gestation of Z3A.29 [facility] [address] [address]- 1786 Aug, Dental examination Z01.20 [facility] [address] [id number] [address]- 6466 Aug, Dental examination Z01.20 [facility] [address] [address]- 4264 Aug, Second trimester Z34.92 and 14 weeks gestation of Z3A.14 [facility] [address] [address]- 3201 Aug, [facility] [address] [id number] [address]- 7643 Jul, care in first trimester Z34.91 and Normal in multigravida Z34.80 [facility] [address] [place] [address] 56242- 9666 Jul, [facility] [address] [address]- 0123 Jul, [facility] [address] [address]- 0296 Jun, [facility] [address] [id number] [id number] Jun, Dental examination Z01.20 [facility] [address] [id number] [id number] Jun, Dental examination Z01.20 [facility] [id number] [address]- 5616 January, Dental examination Z01.20 [facility] [address] [address]- 5241 Dec, Dental examination Z01.20 [facility] [address] [address]- 1221 Dec, Dental examination Z01.20 [place] [address] [address]- 3330 Nov, Dental examination Z01.20 and Periodontitis K05.30 [place] [address] [place] [address] 69231- 0521 Nov, [place] [address] [address]- 7002 Nov, Acute mastitis of left breast N61.0 and Acute nonintractable headache, unspecified headache type R51 IMMUNIZATIONS No Known Immunizations SOCIAL HISTORY Never Assessed REASON FOR VISIT Presumptive Eligibility-Denied PLAN OF CARE VITAL SIGNS MEDICATIONS Unknown Medications RESULTS No Results PROCEDURES No Known procedures INSTRUCTIONS MEDICATIONS ADMINISTERED No Known Medications MEDICAL (GENERAL) HISTORY Type Description Date Medical History denies Hospitalization History Anemia 02/2014
--- OUTSIDE RECORDS SUMMARY | 2018-11-26 01:46 | XMS REPORT ---
Author Author ADAM SELBY Organization [facility] Address [address] [place] [address] Care Team Providers Care Body Rolling Machine Tender Name Role Phone ADAM SELBY Unavailable PROBLEMS Type Condition ICD9-CM Code SVZ82-NX Code Onset Dates Condition Status SNOMED Code Problem Periodontitis K05.30 Active 51912769 ALLERGIES No Information ENCOUNTERS Encounter Location Date Diagnosis [place] [address] [address] Feb, [place] [address] 93383- 4055 January, [place] [address] 89089- 8021 Nov, [place] [address] 70506- 3554 Nov, Screening for deficiency anemia Z13.0 [place] [address] [place] [id number] [place] [address] 90633- 9356 Nov, [place] [address] [place] [id number] [place] [address] 91716- 6813 Nov, [place] [address] 41904- 8353 Nov, care in third trimester Z34.93 and 35 weeks gestation of Z3A.35 [place] [address] 65641- 7258 Oct, [place] [address] [place] [id number] [place] [address] 65479- 7879 Oct, care in third trimester Z34.93 ; Encounter for immunization Z23 and 33 weeks gestation of Z3A.33 [facility] [address], [place] [address] Sep, care in second trimester Z34.92 and 29 weeks gestation of Z3A.29 [facility] [address] [place] [address] [id number], [place] [address] 19 Aug, 2017 Dental examination Z01.20 [facility] [address] [place] [address] [id number] [place] [address] 95153- 2386 Aug, Dental examination Z01.20 [facility] [address] [place] [address] 59085- 4523 Aug, Second trimester Z34.92 and 14 weeks gestation of Z3A.14 [facility] [address] [place] [address] [id number], [place] [address] 4079 Aug, [facility] [address] [place] [id number] [place] [address] 99235- 7856 Jul, care in first trimester Z34.91 and Normal in multigravida Z34.80 [facility] [address] [place] [address] 21839- 1248 Jul, [facility] [address] [place] [address] [id number], [place] [address] 6917 Jul, [facility] [address], [place] [address] Jun, [facility] [id number] [place] [address] [id number] Jun, Dental examination Z01.20 [facility] [id number] [place] [address] [id number] Jun, Dental examination Z01.20 [facility] [address] [place] [address] [id number] [address] January, Dental examination Z01.20 [facility] [address], [place] [address]- 4364 Dec, Dental examination Z01.20 [facility] [address] [place] [address] [id number], [place] [address]- 1810 Dec, Dental examination Z01.20 [facility] [address], [place] [address] 8751 Nov, Dental examination Z01.20 and Periodontitis K05.30 [place] [address], [place] [address]- 1427 Nov, [place] [address], [place] [address] 5[address] Nov, Acute mastitis of left breast N61.0 and Acute nonintractable headache, unspecified headache type R51 IMMUNIZATIONS No Known Immunizations SOCIAL HISTORY Never Assessed REASON FOR VISIT Lab ([facility]) PLAN OF CARE VITAL SIGNS MEDICATIONS Unknown Medications RESULTS Name Result Date Reference Range HEMOGLOBIN (IN HOUSE) 2017-12-05 HEMOGLOBIN 13.2 11.5 - 16 gm/dL Lot # [id number] Exp date 08/01/18 PROCEDURES Procedure Date Ordered Result Body Site HEMOGLOBIN December 05, 2017 INSTRUCTIONS MEDICATIONS ADMINISTERED No Known Medications MEDICAL (GENERAL) HISTORY Type Description Date Medical History denies Hospitalization History Anemia 02/2014
--- OUTSIDE RECORDS SUMMARY | 2018-11-26 01:46 | XMS REPORT ---
Author Author NED RITCHIE Organization [facility] Address [address] [place] [address] Care Team Providers Care Set Up And Lay Out Inspector Name Role Phone NED RITCHIE Unavailable PROBLEMS Type Condition ICD9-CM Code MWB81-DB Code Onset Dates Condition Status SNOMED Code Problem Periodontitis K05.30 Active 19598316 ALLERGIES No Information ENCOUNTERS Encounter Location Date Diagnosis [place] [address] [address]231- 4823 Feb, [place] [address] 17559- 0517 January, [place] [address] 68794- 8053 Nov, [place] [address] 93392- 0098 Nov, Screening for deficiency anemia Z13.0 [place] [address] [place] [id number] [place] [address] 77368- 8797 Nov, [place] [address] [place] [id number] [place] [address] 31296- 0551 Nov, [place] [address] [place] [id number] [place] [address] 18389- 6751 Nov, care in third trimester Z34.93 and 35 weeks gestation of Z3A.35 [place] [address] 01627- 0538 Oct, [place] [address] [place] [id number] [place] [address] 91916- 4210 Oct, care in third trimester Z34.93 ; Encounter for immunization Z23 and 33 weeks gestation of Z3A.33 [facility] [address] [address]- 4212 Sep, care in second trimester Z34.92 and 29 weeks gestation of Z3A.29 [facility] [address] [address]- 5726 Aug, Dental examination Z01.20 [facility] [address] [place] [id number] [address]- 1436 Aug, Dental examination Z01.20 [facility] [address] [address]- 6239 Aug, Second trimester Z34.92 and 14 weeks gestation of Z3A.14 [facility] [address] [address]- 8920 Aug, [facility] [address] [place] [id number] [address]- 4158 Jul, care in first trimester Z34.91 and Normal in multigravida Z34.80 [facility] [address] [place] [address] 44235- 0496 Jul, [facility] [address] [address]- 5994 Jul, [facility] [address] [address]- 7836 Jun, [facility] [address] [id number] [id number] Jun, Dental examination Z01.20 [facility] [address] [id number] [id number] Jun, Dental examination Z01.20 [facility] [address] [place] [id number] [address]- 0836 January, Dental examination Z01.20 [facility] [address] [address] [address] Dec, Dental examination Z01.20 [facility] [address] [address]- 3705 Dec, Dental examination Z01.20 [place] [address] [address]- 2646 Nov, Dental examination Z01.20 and Periodontitis K05.30 [place] [address] [place] [address] 23525- 4765 Nov, [place] [address] [address]- 0147 Nov, Acute mastitis of left breast N61.0 [...]
--- OUTSIDE RECORDS SUMMARY | 2018-11-26 01:46 | XMS REPORT ---
Author Author SOHAIL WALL Organization [facility] Address [address] [place] [address] Care Team Providers Care Infrastructure Architect Name Role Phone SOHAIL WALL Unavailable PROBLEMS Type Condition ICD9-CM Code POG07-WG Code Onset Dates Condition Status SNOMED Code Problem Periodontitis K05.30 Active 94984701 ALLERGIES No Information ENCOUNTERS Encounter Location Date Diagnosis [place] [address] [place] [id number] [place] [address] 62227- 5431 January, [place] [address] 94040- 1444 Nov, [place] [address] 60885- 5271 Nov, Screening for deficiency anemia Z13.0 [place] [address] 62916- 9385 Nov, [place] [address] [place] [id number] [place] [address] 80615- 4256 Nov, [place] [address] [place] [id number] [place] [address] 08980- 7126 Nov, care in third trimester Z34.93 and 35 weeks gestation of Z3A.35 [place] [address] [place] [id number] [place] [address] 11141- 1770 Oct, [place] [address] 68074- 1890 Oct, care in third trimester Z34.93 ; Encounter for immunization Z23 and 33 weeks gestation of Z3A.33 [place] [address] 65199- 1189 Sep, care in second trimester Z34.92 and 29 weeks gestation of Z3A.29 [facility] [address] [place] [id number] [place] [address] 70624- 6730 Aug, Dental examination Z01.20 [facility] [address] [place] [address] 71601- 5450 Aug, Dental examination Z01.20 [facility] [address] [place] [id number] [place] [address] 21605- 5997 Aug, Second trimester Z34.92 and 14 weeks gestation of Z3A.14 [facility] [address] [place] [id number] [place] [address] 21804- 5372 Aug, [facility] [address] [place] [id number] [place] [address] 10243- 9439 Jul, care in first trimester Z34.91 and Normal in multigravida Z34.80 [facility] [address] [place] [id number] [place] [address] 09686- 4227 Jul, [facility] [address] [place] [id number] [place] [address] 44115- 4851 Jul, [facility] [address] [place] [id number] [place] [address] 75564- 5762 Jun, [facility] [address] [place] [address] [id number] Jun, Dental examination Z01.20 [facility] [id number] [place] [address] [id number] Jun, Dental examination Z01.20 [facility] [address] [place] [address] 72865- 8702 January, Dental examination Z01.20 [facility] [address], [place] [address]- 6498 Dec, Dental examination Z01.20 [facility] [address] [place] [id number] [place] [address] 01838- 8167 Dec, Dental examination Z01.20 [place] [address] [id number] [address]- 5126 Nov, Dental examination Z01.20 and Periodontitis K05.30 [place] [address] [place] [id number], [place] [address]- 0499 Nov, [place] [address] [place] [id number], [place] [address]- 4039 Nov, Acute mastitis of left breast N61.0 and Acute nonintractable headache, unspecified headache type R51 IMMUNIZATIONS No Known Immunizations SOCIAL HISTORY Never Assessed REASON FOR VISIT OB/DENTAL PLAN OF CARE VITAL SIGNS MEDICATIONS Unknown Medications RESULTS No Results PROCEDURES Procedure Date Ordered Result Body Site Billing Notes on claim Aug 30, 2017 INSTRUCTIONS MEDICATIONS ADMINISTERED No Known Medications MEDICAL (GENERAL) HISTORY Type Description Date Medical History denies Hospitalization History Anemia 02/2014
--- OUTSIDE RECORDS SUMMARY | 2018-11-26 01:46 | XMS REPORT ---
Author Author NED RITCHIE Organization [facility] Address [address] [place] [address] Care Team Providers Care Marina Porter Name Role Phone NED RITCHIE Unavailable PROBLEMS Type Condition ICD9-CM Code JWS58-QI Code Onset Dates Condition Status SNOMED Code Problem Periodontitis K05.30 Active 02554946 ALLERGIES No Information ENCOUNTERS Encounter Location Date Diagnosis [place] [address] 40913- 0468 Feb, [place] [address] 69842- 8604 January, [place] [address] 78633- 0601 Nov, [place] [address] 52537- 6000 Nov, Screening for deficiency anemia Z13.0 [place] [address] [place] [id number] [place] [address] 30469- 6562 Nov, [place] [address] [place] [id number] [place] [address] 82033- 5787 Nov, [place] [address] [place] [id number] [place] [address] 37577- 8863 Nov, care in third trimester Z34.93 and 35 weeks gestation of Z3A.35 [place] [address] 12049- 3307 Oct, [place] [address] [place] [id number] [place] [address] 33388- 6714 Oct, care in third trimester Z34.93 ; Encounter for immunization Z23 and 33 weeks gestation of Z3A.33 [facility] [address], [place] [address]- 4601 Sep, care in second trimester Z34.92 and 29 weeks gestation of Z3A.29 [facility] [address], [place] [address]- 2746 Aug, Dental examination Z01.20 [facility] [address] [place] [id number], [place] [address]- 7116 Aug, Dental examination Z01.20 [facility] [address], [place] [address]- 6404 Aug, Second trimester Z34.92 and 14 weeks gestation of Z3A.14 [facility] [address], [place] [address]- 8398 Aug, [facility] [address] [place] [id number], [place] [address]- 6346 Jul, care in first trimester Z34.91 and Normal in multigravida Z34.80 [facility] [address] [place] [address] 13394- 5266 Jul, [facility] [address], [place] [address]- 0849 Jul, [facility] [address], [place] [address]- 1266 Jun, [facility] [address] [id number] [id number] Jun, Dental examination Z01.20 [facility] [address] [id number] [id number] Jun, Dental examination Z01.20 [facility] [address] [place] [id number], [place] [address]- 6986 January, Dental examination Z01.20 [facility] [address] [address]- 2670 Dec, Dental examination Z01.20 [facility] [address], [place] [address]- 2448 Dec, Dental examination Z01.20 [place] [address], [place] [address]- 1834 Nov, Dental examination Z01.20 and Periodontitis K05.30 [place] [address] [place] [address] 58959- 4205 Nov, [place] [address], [place] [address]- 6589 Nov, Acute mastitis of left breast N61.0 and Acute nonintractable headache, unspecified headache type R51 IMMUNIZATIONS No Known Immunizations SOCIAL HISTORY Never Assessed REASON FOR VISIT [facility] Intake PLAN OF CARE VITAL SIGNS MEDICATIONS Unknown Medications RESULTS No Results PROCEDURES No Known procedures INSTRUCTIONS MEDICATIONS ADMINISTERED No Known Medications MEDICAL (GENERAL) HISTORY Type Description Date Medical History denies Hospitalization History Anemia 02/2014
--- OUTSIDE RECORDS SUMMARY | 2018-11-26 01:46 | XMS REPORT ---
Author Author NED RITCHIE Organization [facility] Address [address] [place] [address] Care Team Providers Care Ballpoint Pen Assembly Machine Operator Name Role Phone NED RITCHIE Unavailable PROBLEMS Type Condition ICD9-CM Code DSX37-QT Code Onset Dates Condition Status SNOMED Code Problem Periodontitis K05.30 Active 49364975 ALLERGIES No Information ENCOUNTERS Encounter Location Date Diagnosis [place] [address] 54376- 0883 Feb, [place] [address] 65619- 8084 January, [place] [address] 97768- 0388 Nov, [place] [address] 57472- 7359 Nov, Screening for deficiency anemia Z13.0 [place] [address] [place] [id number] [place] [address] 99408- 2767 Nov, [place] [address] [place] [id number] [place] [address] 65233- 7931 Nov, [place] [address] [place] [id number] [place] [address] 01841- 0948 Nov, care in third trimester Z34.93 and 35 weeks gestation of Z3A.35 [place] [address] 53637- 6125 Oct, [place] [address] [place] [id number] [place] [address] 69276- 0088 Oct, care in third trimester Z34.93 ; Encounter for immunization Z23 and 33 weeks gestation of Z3A.33 [facility] [address], [place] [address]- 0223 Sep, care in second trimester Z34.92 and 29 weeks gestation of Z3A.29 [facility] [address], [place] [address]- 2946 Aug, Dental examination Z01.20 [facility] [address] [place] [address] 1896165100[place], [place] [address]- 7986 Aug, Dental examination Z01.20 [facility] [address], [place] [address]- 2965 Aug, Second trimester Z34.92 and 14 weeks gestation of Z3A.14 [facility] [address], [place] [address]- 6079 Aug, [facility] [address] [place] 1896165100[place], [place] [address]- 7745 Jul, care in first trimester Z34.91 and Normal in multigravida Z34.80 [facility] [address] [place] [address] 71057- 1336 Jul, [facility] [address], [place] [address]- 8049 Jul, [facility] [address], [place] [address]- 4626 Jun, [facility] [address] [id number] [id number] Jun, Dental examination Z01.20 [facility] [address] [id number] [address] Jun, Dental examination Z01.20 [facility] [address] [place] [id number], [place] [address]- 9716 January, Dental examination Z01.20 [facility] [address], [place] [address]- 5747 Dec, Dental examination Z01.20 [facility] [address] [facility] [id number] [address]- 8097 07 Dec, 2016 Dental examination Z01.20 [facility] [address] [place] [id number] [address]- 1927 28 Nov, 2016 Dental examination Z01.20 and Periodontitis K05.30 [place] [address], [place] [address]- 4818 21 Nov, 2016 [place] [address] [place] [id number], [place] [address]- 7151 21 Nov, 2016 Acute mastitis of left breast N61.0 and Acute nonintractable headache, unspecified headache type R51 IMMUNIZATIONS No Known Immunizations SOCIAL HISTORY Never Assessed REASON FOR VISIT OB 2wk f/u -- nirav baum, patient states she fell and was sitting on the floor for almost 10 minutes until her came home to help her , states she felt some water not sure it was urine or anything else, states baby is moving the same PLAN OF CARE Activity Details Follow Up 1 Week Reason: VITAL SIGNS Height 5'2" in 2017-11-15 Weight 150.0 lbs 2017-11-15 Temperature 97.8 degrees Fahrenheit 2017-11-15 Heart Rate 78 bpm 2017-11-15 Respiratory Rate 18 2017-11-15 BMI 27.43 kg/m2 2017-11-15 Blood pressure systolic 106 mmHg 2017-11-15 Blood pressure diastolic 70 mmHg 2017-11-15 MEDICATIONS Medication Instructions Dosage Frequency Start Date End Date Duration Status Vitamin 27-0.8 MG Active RESULTS Name Result Date Reference Range UA OB DIP (IN HOUSE) 2017-11-15 Glucose neg Protein trace PROCEDURES Procedure Date Ordered Result Body Site URINE-NO MICRO November 15, 2017 INSTRUCTIONS MEDICATIONS ADMINISTERED No Known Medications MEDICAL (GENERAL) HISTORY Type Description Date Medical History denies Hospitalization History Anemia 02/2014
--- OUTSIDE RECORDS SUMMARY | 2018-11-26 01:46 | XMS REPORT ---
Author Author NED RITCHIE Organization [facility] Address [address] [place] [address] Care Team Providers Care Boiler House Mechanic Name Role Phone NED RITCHIE Unavailable PROBLEMS Type Condition ICD9-CM Code GVA49-UZ Code Onset Dates Condition Status SNOMED Code Problem Periodontitis K05.30 Active 14189939 ALLERGIES No Information ENCOUNTERS Encounter Location Date Diagnosis [place] [address] 98[address]- 6104 Feb, [place] [address] 24081- 3538 January, [place] [address] 92591- 1591 Nov, [place] [address] 43142- 5433 Nov, Screening for deficiency anemia Z13.0 [place] [address] [place] [address] [id number] [place] [address] 08005- 8508 Nov, [place] [address] [place] [id number] [place] [address] 48882- 9281 Nov, [place] [address] [place] [id number] [place] [address] 75428- 6594 Nov, care in third trimester Z34.93 and 35 weeks gestation of Z3A.35 [place] [address] 47853- 3830 Oct, [place] [address] [place] [id number] [place] [address] 34496- 0951 Oct, care in third trimester Z34.93 ; Encounter for immunization Z23 and 33 weeks gestation of Z3A.33 [facility] [address], [place] [address]- 9785 Sep, care in second trimester Z34.92 and 29 weeks gestation of Z3A.29 [facility] [address], [place] [address]- 5676 Aug, Dental examination Z01.20 [facility] [address] [place] [address] [id number] [address]- 1966 Aug, Dental examination Z01.20 [facility] [address], [place] [address]- 5108 Aug, Second trimester Z34.92 and 14 weeks gestation of Z3A.14 [facility] [address], [place] [address]- 2868 Aug, [facility] [address] [place] [id number] [address]- 7792 Jul, care in first trimester Z34.91 and Normal in multigravida Z34.80 [facility] [address] [place] [address] 17255- 5416 Jul, [facility] [address], [place] [address]- 1273 Jul, [facility] [address], [place] [address]- 5526 Jun, [facility] [address] [id number] [id number] Jun, Dental examination Z01.20 [facility] [address] [id number] [id number] Jun, Dental examination Z01.20 [facility] [address] [place] [address] [id number], [place] [address]- 8826 January, Dental examination Z01.20 [facility] [address] [address] 5112 Dec, Dental examination Z01.20 [facility] [address], [place] [address]- 7048 Dec, Dental examination Z01.20 [place] [address] [address]- 2520 Nov, Dental examination Z01.20 and Periodontitis K05.30 [place] [address] [place] [address] 58338- 2022 Nov, [place] [address] [address]- 4961 Nov, Acute mastitis of left breast N61.0 [...]
--- OUTSIDE RECORDS SUMMARY | 2018-11-26 01:46 | XMS REPORT ---
Author Author NED RITCHIE Organization [facility] [place] Address [address] [place] [address] Care Team Providers Care Personal Banking Advisor Name Role Phone NED RITCHIE Unavailable PROBLEMS Type Condition ICD9-CM Code MSE43-QV Code Onset Dates Condition Status SNOMED Code Problem Periodontitis K05.30 Active 70629974 ALLERGIES No Information ENCOUNTERS Encounter Location Date Diagnosis [place] [address] [address] Feb, [place] [address] [address]368- 6440 January, [place] [address] 8[address]58- 5011 Nov, [place] [address] 33395- 1459 Nov, Screening for deficiency anemia Z13.0 [place] [address] [place] [id number] [place] [address] 32832- 8271 Nov, [place] [address] [place] [id number] [place] [address] 64571- 7182 Nov, [place] [address] [place] [id number] [place] [address] 04816- 7489 Nov, care in third trimester Z34.93 and 35 weeks gestation of Z3A.35 [place] [address] 75669- 8800 Oct, [place] [address] [place] [id number] [place] [address] 27834- 7282 Oct, care in third trimester Z34.93 ; Encounter for immunization Z23 and 33 weeks gestation of Z3A.33 [facility] [place] [address] [address] Sep, care in second trimester Z34.92 and 29 weeks gestation of Z3A.29 [facility] [place] [address] [address] Aug, Dental examination Z01.20 [facility] [place] [address] [place] [id number] [address] 8546 Aug, Dental examination Z01.20 [facility] [place] [address] [address]- 7689 Aug, Second trimester Z34.92 and 14 weeks gestation of Z3A.14 [facility] [place] [address] [address] Aug, [facility] [place] [address] [place] [id number] [address] 8295 Jul, care in first trimester Z34.91 and Normal in multigravida Z34.80 [facility] [place] [address] [place] [address] 14795- 6116 Jul, [facility] [place] [address] [address]- 9936 Jul, [facility] [place] [address] [address]- 2366 Jun, [facility] [address] [id number] [id number] Jun, Dental examination Z01.20 [facility] [address] [id number] [id number] Jun, Dental examination Z01.20 [facility] [place] [address] [place] [id number] [address] 9[address] January, Dental examination Z01.20 [facility] [place] [address] [address]- 5225 Dec, Dental examination Z01.20 [facility] [place] [address] [address]- 29[address] 07 Dec, 2016 Dental examination Z01.20 [facility] [place] [address] [place] [id number] [address]- 56[address] 28 Nov, 2016 Dental examination Z01.20 and Periodontitis K05.30 [place] [address] [address]- 4752 21 Nov, 2016 [facility] [place] [address] [address]- 0605 21 Nov, 2016 Acute mastitis of left breast N61.0 and Acute nonintractable headache, unspecified headache type R51 IMMUNIZATIONS Vaccine Route Administration Date Status TDAP (BOOSTRIX) IM Intramuscular Nov 01, 2017 Administered SOCIAL HISTORY Never Assessed REASON FOR VISIT OB 2wk f/u PLAN OF CARE Activity Details Follow Up 2 Weeks Reason: VITAL SIGNS Height 5'2" in 2017-11-01 Weight 148 lbs 2017-11-01 Temperature 98.2 degrees Fahrenheit 2017-11-01 Heart Rate 80 bpm 2017-11-01 Respiratory Rate 20 2017-11-01 BMI 27.07 kg/m2 2017-11-01 Blood pressure systolic 98 mmHg 2017-11-01 Blood pressure diastolic 60 mmHg 2017-11-01 MEDICATIONS Medication Instructions Dosage Frequency Start Date End Date Duration Status Vitamin 27-0.8 MG Active RESULTS Name Result Date Reference Range UA OB DIP (IN HOUSE) 2017-11-01 Glucose neg Protein trace PROCEDURES Procedure Date Ordered Result Body Site URINE-NO MICRO Nov 01, 2017 TDAP (BOOSTRIX) Nov 01, 2017 SINGLE IMMUNIZATION ADMIN Nov 01, 2017 INSTRUCTIONS MEDICATIONS ADMINISTERED No Known Medications MEDICAL (GENERAL) HISTORY Type Description Date Medical History denies Hospitalization History Anemia 02/2014
--- OUTSIDE RECORDS SUMMARY | 2018-11-26 01:46 | XMS REPORT ---
Author Author NED RITCHIE Organization [facility] Address [address] [place] [address] Care Team Providers Care Produce Associate Name Role Phone NED RITCHIE Unavailable PROBLEMS Type Condition ICD9-CM Code UFC99-KL Code Onset Dates Condition Status SNOMED Code Problem Periodontitis K05.30 Active 21269856 ALLERGIES No Information ENCOUNTERS Encounter Location Date Diagnosis [place] [address] [address]- 9813 Feb, [place] [address] 54177- 5005 January, [place] [address] 06873- 5923 Nov, [place] [address] 91973- 4350 Nov, Screening for deficiency anemia Z13.0 [place] [address] [place] [id number] [place] [address] 52749- 3721 Nov, [place] [address] [place] [id number] [place] [address] 88296- 8552 Nov, [place] [address] [place] [id number] [place] [address] 02180- 8834 Nov, care in third trimester Z34.93 and 35 weeks gestation of Z3A.35 [place] [address] 45248- 5043 Oct, [place] [address] [place] [id number] [place] [address] 88046- 4750 Oct, care in third trimester Z34.93 ; Encounter for immunization Z23 and 33 weeks gestation of Z3A.33 [facility] [address] [address]- 4[address] Sep, care in second trimester Z34.92 and 29 weeks gestation of Z3A.29 [facility] [address] [address]- 1056 Aug, Dental examination Z01.20 [facility] [address] [place] [id number] [address]- 8336 Aug, Dental examination Z01.20 [facility] [address] [address]- 3970 Aug, Second trimester Z34.92 and 14 weeks gestation of Z3A.14 [facility] [address] [address]- 5247 Aug, [facility] [address] [place] [id number] [address]- 7750 Jul, care in first trimester Z34.91 and Normal in multigravida Z34.80 [facility] [address] [place] [address] 50778- 7126 Jul, [facility] [address] [address]- 2053 Jul, [facility] [address] [address]- 7456 Jun, [facility] [address] [id number] [address] Jun, Dental examination Z01.20 [facility] [address] [id number] [id number] Jun, Dental examination Z01.20 [facility] [address] [place] [id number] [address]- 6476 January, Dental examination Z01.20 [facility] [address] [address]68 Dec, Dental examination Z01.20 [facility] [address] [address]- 4953 Dec, Dental examination Z01.20 [place] [address] [address]- 2502 Nov, Dental examination Z01.20 and Periodontitis K05.30 [place] [address] [place] [address] 14441- 6482 Nov, [place] [address] [address]- 8481 Nov, Acute mastitis of left breast N61.0 [...]
--- OUTSIDE RECORDS SUMMARY | 2018-11-26 01:46 | XMS REPORT ---
Author Author NED RITCHIE Organization [facility] Address [address] [place] [address] Care Team Providers Care Decorator Inspector Name Role Phone NED RITCHIE Unavailable PROBLEMS Type Condition ICD9-CM Code [id number] Code Onset Dates Condition Status SNOMED Code Problem Periodontitis K05.30 Active 69745178 ALLERGIES No Known Allergies ENCOUNTERS Encounter Location Date Diagnosis [place] [address] [address]- 0467 Feb, [place] [address] 49649- 7765 January, [place] [address] 70394- 6236 Nov, [place] [address] 09984- 8066 Nov, Screening for deficiency anemia Z13.0 [place] [address] [place] [id number] [place] [address] 35972- 2373 Nov, [place] [address] [place] [id number] [place] [address] 65352- 1803 Nov, [facility] [address] [place] [id number] [place] [address] 26632- 1831 Nov, care in third trimester Z34.93 and 35 weeks gestation of Z3A.35 [place] [address] 71830- 5938 Oct, [facility] [address] [place] [id number] [place] [address] 48176- 9117 Oct, care in third trimester Z34.93 ; Encounter for immunization Z23 and 33 weeks gestation of Z3A.33 [facility] [address] [address]- 3530 Sep, care in second trimester Z34.92 and 29 weeks gestation of Z3A.29 [facility] [address] [address]- 7236 Aug, Dental examination Z01.20 [facility] [address] [place] [id number] [address]- 0536 Aug, Dental examination Z01.20 [facility] [address] [address]- 0333 Aug, Second trimester Z34.92 and 14 weeks gestation of Z3A.14 [facility] [address] [address]- 0880 Aug, [facility] [address] [address]- 0815 Jul, care in first trimester Z34.91 and Normal in multigravida Z34.80 [facility] [address]65[address] [address]- 3656 Jul, [facility] [address] [address]- 1601 Jul, [facility] [address] [address]- 4756 Jun, [facility] [address] [id number] [id number] Jun, Dental examination Z01.20 [facility] [address] [id number] [id number] Jun, Dental examination Z01.20 [facility] [address] [address] 2546 January, Dental examination Z01.20 [facility] [address] [address]- 8185 Dec, Dental examination Z01.20 [facility] [address] [address]- 0190 Dec, Dental examination Z01.20 [place] [address] [address]- 9839 28 Nov, 2016 Dental examination Z01.20 and Periodontitis K05.30 [place] [address] [address]- 1547 Nov, [place] [address] [address]- 4901 Nov, Acute mastitis of left breast N61.0 and Acute nonintractable headache, unspecified headache type R51 IMMUNIZATIONS No Known Immunizations SOCIAL HISTORY Never Assessed REASON FOR VISIT OB f/u-4 wk--tcuppettRN PLAN OF CARE Activity Details Follow Up 4 Weeks Reason: VITAL SIGNS Weight 140.6 lbs 2017-08-25 Temperature 98.2 degrees Fahrenheit 2017-08-25 Heart Rate 76 bpm 2017-08-25 Respiratory Rate 16 2017-08-25 Blood pressure systolic 100 mmHg 2017-08-25 Blood pressure diastolic 54 mmHg 2017-08-25 MEDICATIONS Medication Instructions Dosage Frequency Start Date End Date Duration Status Vitamin 27-0.8 MG Active RESULTS No Results PROCEDURES No Known procedures INSTRUCTIONS MEDICATIONS ADMINISTERED No Known Medications MEDICAL (GENERAL) HISTORY Type Description Date Medical History denies Hospitalization History Anemia 02/2014
--- OUTSIDE RECORDS SUMMARY | 2018-11-26 01:47 | XMS REPORT ---
Author Author SOHAIL WALL Organization [facility] Address [address] [place] [address] Care Team Providers Care Truck Mechanic Apprentice Name Role Phone SOHAIL WALL Unavailable PROBLEMS Type Condition ICD9-CM Code HMY62-WL Code Onset Dates Condition Status SNOMED Code Problem Periodontitis K05.30 Active 92357332 ALLERGIES No Information ENCOUNTERS Encounter Location Date Diagnosis [place] [address] [address]- 6921 January, [place] [address] 45366- 8332 Nov, [place] [address] 85967- 8657 Nov, Screening for deficiency anemia Z13.0 [place] [address] 76977- 0803 Nov, [place] [address] [place] [id number] [place] [address] 14523- 1930 Nov, [place] [address] [place] [id number] [place] [address] 46885- 6385 Nov, care in third trimester Z34.93 and 35 weeks gestation of Z3A.35 [place] [address] [place] [id number] [place] [address] 31682- 8501 Oct, [place] [address] 40572- 8470 Oct, care in third trimester Z34.93 ; Encounter for immunization Z23 and 33 weeks gestation of Z3A.33 [place] [address] 74467- 8385 Sep, care in second trimester Z34.92 and 29 weeks gestation of Z3A.29 [facility] [address] [place] [id number] [place] [address] 84405- 0037 Aug, Dental examination Z01.20 [facility] [address] [place] [address] 28169- 0315 Aug, Dental examination Z01.20 [facility] [address] [place] [id number] [place] [address] 35870- 8943 Aug, Second trimester Z34.92 and 14 weeks gestation of Z3A.14 [facility] [address] [place] [id number] [place] [address] 59291- 1899 Aug, [facility] [address] [place] [id number] [place] [address] 00467- 2528 Jul, care in first trimester Z34.91 and Normal in multigravida Z34.80 [facility] [address] [place] [id number] [place] [address] 57149- 3320 Jul, [facility] [address] [place] [id number] [place] [address] 95175- 4569 Jul, [facility] [address] [place] [id number] [place] [address] 00210- 2969 Jun, [facility] [address] [place] [address] [id number] Jun, Dental examination Z01.20 [facility] [id number] [place] [address] [id number] Jun, Dental examination Z01.20 [facility] [address] [place] [address] 97482- 3795 January, Dental examination Z01.20 [facility] [address]005[address]100[place] [address]- 0549 Dec, Dental examination Z01.20 [facility] [address] [place] [id number] [place] [address] 40537- 0598 Dec, Dental examination Z01.20 [place] [address] [place] [id number] [address]- 9696 28 Nov, 2016 Dental examination Z01.20 and Periodontitis K05.30 [place] [address] [facility] [id number] [address]- 7848 Nov, [place] [address] [place] [id number] [address]- 7289 Nov, Acute mastitis of left breast N61.0 and Acute nonintractable headache, unspecified headache type R51 IMMUNIZATIONS No Known Immunizations SOCIAL HISTORY Never Assessed REASON FOR VISIT SCRIPT PLAN OF CARE VITAL SIGNS MEDICATIONS Medication Instructions Dosage Frequency Start Date End Date Duration Status Nystatin 574691 UNIT/GM Orally two to three times a day Apply to affected gum tissue and partial denture liberally Jun, Jul, 10 days Active RESULTS No Results PROCEDURES Procedure Date Ordered Result Body Site Billing Notes on claim Jul 07, 2017 INSTRUCTIONS MEDICATIONS ADMINISTERED No Known Medications MEDICAL (GENERAL) HISTORY Type Description Date Medical History denies Hospitalization History Anemia 02/2014
--- OUTSIDE RECORDS SUMMARY | 2018-11-26 01:47 | XMS REPORT ---
Author Author MARTIN VARGAS Organization [facility] Address [address] [place] [address] Care Team Providers Care Laboratory Cureman Name Role Phone MARTIN VARGAS Unavailable PROBLEMS Type Condition ICD9-CM Code KFV61-JU Code Onset Dates Condition Status SNOMED Code Problem Periodontitis K05.30 Active 59798861 ALLERGIES No Information ENCOUNTERS Encounter Location Date Diagnosis [place] [address] [id number] [place] [address] 73402- 1794 January, [place] [address] 65602- 6377 Nov, [place] [address] 09998- 1693 Nov, Screening for deficiency anemia Z13.0 [place] [address] 37496- 0018 Nov, [place] [address] [place] [id number] [place] [address] 90854- 7418 Nov, [place] [address] [place] [id number] [place] [address] 38335- 6255 Nov, care in third trimester Z34.93 and 35 weeks gestation of Z3A.35 [place] [address] [place] [id number] [place] [address] 05033- 1075 Oct, [place] [address] 53098- 2642 Oct, care in third trimester Z34.93 ; Encounter for immunization Z23 and 33 weeks gestation of Z3A.33 [place] [address] 47611- 1477 Sep, care in second trimester Z34.92 and 29 weeks gestation of Z3A.29 [facility] [address] [place] [address] 79246- 6582 Aug, Dental examination Z01.20 [facility] [address] [place] [address] 63646- 3125 Aug, Dental examination Z01.20 [facility] [address] [place] [id number] [place] [address] 23665- 3834 Aug, Second trimester Z34.92 and 14 weeks gestation of Z3A.14 [facility] [address] [place] [id number] [place] [address] 10319- 4701 Aug, [facility] [address] [place] [id number] [place] [address] 88529- 7358 Jul, care in first trimester Z34.91 and Normal in multigravida Z34.80 [facility] [id number] [place] [address] 24964- 0690 Jul, [facility] [address] [place] [id number] [place] [address] 68380- 3006 Jul, [facility] [address] [place] [address] 65568- 9566 Jun, [facility] [id number] [place] [address] [id number] Jun, Dental examination Z01.20 [facility] [id number] [place] [address] [id number] Jun, Dental examination Z01.20 [facility] [address] [place] [id number] [place] [address] 62411177- 4036 January, Dental examination Z01.20 [facility] [address] [place] [address] 34060- 3145 Dec, Dental examination Z01.20 [facility] [address] [place] [id number] [address]- 2599 07 Dec, 2016 Dental examination Z01.20 [place] [address] [address]- 4547 Nov, Dental examination Z01.20 and Periodontitis K05.30 [place] [address] [place] [id number] [address]- 0983 Nov, [place] [address] [address]- 0036 Nov, Acute mastitis of left breast N61.0 and Acute nonintractable headache, unspecified headache type R51 IMMUNIZATIONS No Known Immunizations SOCIAL HISTORY Never Assessed REASON FOR VISIT OB/DENTAL PLAN OF CARE Activity Details Follow Up 1 Week Reason:restorative. VITAL SIGNS MEDICATIONS Unknown Medications RESULTS No Results PROCEDURES Procedure Date Ordered Result Body Site SCREENING OF A PATIENT Aug 25, 2017 Billing Notes on claim Aug 25, 2017 INSTRUCTIONS MEDICATIONS ADMINISTERED No Known Medications MEDICAL (GENERAL) HISTORY Type Description Date Medical History denies Hospitalization History Anemia 02/2014
[2018-11-26] MEDS ORDERED: ACETAMINOPHEN 500 MG TAB (TYLENOL) PO PRN (03:00)
[2018-11-26] MEDS ORDERED: WITCH HAZEL(TUCKS) 40 EA JAR TOP PRN (03:00)
[2018-11-26] MEDS ORDERED: BENZOCAINE/MENTHOL (DERMOPLAST) 56 ML CAN TP PRN (03:00)
--- NOTE | 2018-11-26 03:30 | NUR ---
Pt tx to pp room 311 via wc accompanied by this rn. no ss distress noted, oriented to new room, will cont to monitor.
[2018-11-26] MEDS ORDERED: IBUPROFEN 600 MG (MOTRIN) TAB PO ONE (04:11)
[2018-11-26] MEDS: IBUPROFEN 600 MG (MOTRIN) TAB PO PRN ×4 (04:14→23:51)
[2018-11-26] MEDS ORDERED: CATHETER FLUSH 10 ML SYR IV SCH (06:00)
--- NOTE | 2018-11-26 10:29 | NUR ---
AM shift assessment completed and vital signs obtained, see interventions. Plan of care reviewed with patient utilizing [employer]. Patient verbalizes understanding and questions answered. Breakfast tray ordered for patient. Scheduled Motrin PO given. Patient denies any further needs at this time. placed skin to skin with Mom and she reports he is due to feed but will not wake.
--- NOTE | 2018-11-26 10:40 | NUR ---
Saline lock DC'd, tip intact. Band aid applied to site.
--- NOTE | 2018-11-26 13:50 | NUR ---
Report to An Hicks RN.
[2018-11-27 05:40] VITALS: BP 95/59
[2018-11-27] MEDS: IBUPROFEN 600 MG (MOTRIN) TAB PO PRN (05:47)
[2018-11-27 05:52] LABS: BASOPHILS % (AUTO) 0 % (0-10); EOSINOPHILS # (AUTO) 0.3 10^3/uL (0.0-0.3); EOSINOPHILS % (AUTO) 3 % (0-10); HEMATOCRIT 30 % (35-52); HEMOGLOBIN 9.9 G/DL (11.5-16.0); LYMPHOCYTES # (AUTO) 2.5 X 10^3 (1.0-4.0); LYMPHOCYTES % (AUTO) 27 % (12-44); MEAN CORPUSCULAR HEMOGLOBIN 30 PG (25-34); MEAN CORPUSCULAR HGB CONC 33 G/DL (32-36); MEAN CORPUSCULAR VOLUME 89 FL (80-99); MEAN PLATELET VOLUME 11.4 FL (7.4-10.4); MONOCYTES # (AUTO) 0.7 X 10^3 (0.0-1.0); MONOCYTES % (AUTO) 8 % (0-12); NEUTROPHILS # (AUTO) 5.9 X 10^3 (1.8-7.8); NEUTROPHILS % (AUTO) 63 % (42-75); PLATELET COUNT 199 10^3/uL (130-400); WHITE BLOOD COUNT 9.3 10^3/uL (4.3-11.0)
[2018-11-27 08:30] VITALS: BP 103/63
--- NOTE | 2018-11-27 10:23 | Discharge Summary ---
Diagnosis/Chief Complaint Date of Admission Nov 26, 2018 at 00:58 Date of Discharge 11/27/18 Admission Diagnosis Admission Diagnosis Term Uncomplicated 39 week gestation Discharge Diagnosis Term Uncomplicated Vaginal delivery 39 week gestation Discharge Summary-Simple/Stand Procedures Discharge Physical Examination Allergies: Coded Allergies: No Known Drug Allergies (Unverified , 11/17/17) Vitals & I&Os Vital Sign - Last 12Hours Date Time Temp Pulse Resp B/P (MAP) Pulse Ox O2 Delivery O2 Flow Rate FiO2 11/27/18 08:30 97.6 80 16 103/63 (76) 98 11/26/18 14:35 Room Air General Appearance: Alert, Oriented X3, Cooperative, No Acute Distress HEENT: Mucous Memb Moist/[place] Respiratory: Clear to Auscultation, Normal Air Movement Cardiovascular: Regular Rate, No Murmurs Abdominal: Normal Bowel Sounds, Soft, Other (Fundus firm and below Umbilicus) Extremities: No Edema, No Tenderness/Swelling Psych/Mental Status: Mental Status NL, Mood NL Hospital Course See final discharge diagnosis. Discussion & Recommendations 33 yo G7 now P5 delivery term male via uncomplicated . Discharge Condition at discharge Stable Instructions to patient/family Please see electronic discharge instructions given to patient. Discharge Medications Reviewed and agree with Discharge Medication list on patient's Discharge Instruction sheet Clinical Quality Measures DVT/VTE Risk/Contraindication: Risk Factor Score Per Nursin RFS Level Per Nursing on Admit: 1=Low/No VTE PPX Copy Copies To 1: FREDI CASTILLO MD, HOLLY R MD Nov 27, 2018 10:23
[2018-11-27] MEDS ORDERED: IBUP-844 PO (10:25)
--- NOTE | 2018-11-27 10:34 | Discharge Instructions ---
Discharge Inst-Women[facility] Serv Depart Medications New, Converted or Re-Newed RX: Transmitted to Pharmacy New Medications: Ibuprofen (Ibu) 600 Mg Tablet 600 MG PO Q6HR PRN for PAIN-MILD, #90 TAB Continued Medications: Vit/Iron Fumarate/FA ( Tablet) 1 Each Tablet 1 EACH PO DAILY, TAB Follow Up/Instructions Goal/Follow Up: [address] Jara for Post Activity Activity: Activity as Tolerated Driving Instructions: You May Drive NO SMOKING: NO SMOKING Nothing Inside Vagina: No Douching, No Hardesty, No Tampons Diet Discharge Diet: No Restrictions Symptoms to Report to : Bleeding Excessive, Fever Over 101 Degrees F, Shortness of Breath For Any Problems or Questions: Contact Your Physician Copies To 1: FREDI JARA MD, HOLLY R MD Nov 27, 2018 10:34
[2018-11-27 13:20] VITALS: BP 111/77
--- NOTE | 2018-11-27 14:14 | NUR ---
All education given in Kyrgyz.
--- NOTE | 2018-11-27 14:45 | NUR ---
Explained discharge and home care instruction utilizing translating mikel form Ukrainian to Uzbek to pt and . They verbalized understanding. Verified by signing signature page. All handouts in Uzbek type provided to pt.
--- NOTE | 2018-11-27 15:00 | NUR ---
Pt ambulated to personal vehicle accompanied via staff member Rowan and . Babe in child safety seat and clicked in to base in vehicle. No c/o. No s/s of distress.
== END 2018-11-27 15:00 | disposition home or self-care (01) | DRG 807 ==
LOC: WSo 23:02 → LDRP 23:04 → WSo 11-26 00:58 → LDRP 11-26 00:58
PROVIDERS: ADMIT Family Medicine; ATTEND Family Medicine
PROC: 10E0XZZ Delivery of Products of Conception, External Approach (ICD-10-PCS; principal; 2018-11-26)
PROC: 0HQ9XZZ Repair Perineum Skin, External Approach (ICD-10-PCS; 2018-11-26)
DX: O99.284 Endocrine, nutritional and metabolic diseases complicating childbirth (principal); E05.80 Other thyrotoxicosis without thyrotoxic crisis or storm; O09.213 Supervision of pregnancy with history of pre-term labor, third trimester; O70.0 First degree perineal laceration during delivery; Z37.0 Single live birth; Z3A.39 39 weeks gestation of pregnancy
CPT/HCPCS: 36415; 85025; 86850; 86900; 86901; 99212

== ENCOUNTER 2019-08-03 15:53 | Emergency (ER) | payer OTHER ==
[~2019-08-03] VITALS: Ht 165 cm; Wt 71.8 kg
[~2019-08-03 15:53] MED LIST changes: +IBUP-844 PO
[2019-08-03 16:40] LABS: BILIRUBIN,URINE NEGATIVE (NEGATIVE); CLARITY,URINE CLEAR; COLOR,URINE YELLOW; GLUCOSE, URINE (UA) NEGATIVE (NEGATIVE); KETONES,URINE NEGATIVE (NEGATIVE); LEUKOCYTE ESTERASE ,URINE NEGATIVE (NEGATIVE); NITRITE,URINE NEGATIVE (NEGATIVE); PROTEIN,URINE NEGATIVE (NEGATIVE)
--- NOTE | 2019-08-03 16:44 | ED Back Pain ---
General Chief Complaint: Back Problems Stated Complaint: BACK PAIN - 12 WKS PREG Nursing Triage Note: COMPLAINS OF RIGHT LOWER BACK PAIN WITH PAINFUL URINATION FOR ONE WEEK. PT STATES SHE IS 12 WEEKS GESTATION PER ULTRASOUND DONE ON THE . Nursing Sepsis Screen: No Definite Risk Source of Information: Patient Exam Limitations: No Limitations History of Present Illness Date Seen by Provider: Aug 03, 2019 Time Seen by Provider: 16:42 Initial Comments ER with midline low back pain for one week, worse with urination, has nausea and chills but no measured fever no vomiting. She is 12 weeks gestation, AB 1. She had an ultrasound done 2 days ago at [facility], I called them to obtain this report and she is in fact 12 weeks 1 day at the time of that report. Location: Lumbar Spine, Paraspinous Muscles Timing/Duration: 1 Week Severity: Moderate Pain/Injury Location: Back Associated Symptoms: lower back pain Allergies and Home Medications Allergies Coded Allergies: No Known Drug Allergies (Unverified , 11/17/17) Patient Home Medication List Home Medication List Reviewed: Yes Review of Systems Constitutional: see HPI, chills; No fever EENTM: see HPI Respiratory: no symptoms reported Cardiovascular: no symptoms reported Genitourinary: no symptoms reported Musculoskeletal: no symptoms reported, see HPI Skin: no symptoms reported Psychiatric/Neurological: No Symptoms Reported Past Bmecnyv-Pcrllm-Mlpjav Hx Patient Social History Recent Foreign Travel: No Contact w/Someone Who Travel: No Recent Infectious Disease Expo: No Recent Hopitalizations: No Immunizations Up To Date Tetanus Booster (TDap): Less than 5yrs Date of Influenza Vaccine: Jul 07, 2018 Seasonal Allergies Seasonal Allergies: No Past Medical History Surgeries: No Respiratory: No Cardiac: No Neurological: No Hx : 8 Hx Para: 6 Hx Total # of Abortions (Sp): 1 Sexually Transmitted Disease: No HIV/AIDS: No Genitourinary: Yes (UTI, SWOLLEN KIDNEYS) Gastrointestinal: No Musculoskeletal: No Endocrine: No HEENT: No Cancer: No Psychosocial: No Integumentary: No Blood Disorders: No Adverse Reaction/Blood Tranf: No Family Medical History Patient reports no known family medical history. Physical Exam Vital Signs Vital Signs - First Documented 08/03/19 16:15 Temp 36.9 Pulse 91 Resp 16 B/P (MAP) 111/71 (84) Pulse Ox 100 O2 Delivery Room Air Capillary Refill : Less Than 3 Seconds Height, Weight, BMI Height: 5'3.00" Weight: 173lbs. 8.0oz. 78.725759ls; 26.00 BMI Method: General Appearance: No Apparent Distress, WD/WN Neck: Full Range of Motion, Normal Inspection Respiratory: Lungs Clear, Normal Breath Sounds, No Accessory Muscle Use, No Respiratory Distress Gastrointestinal: Non Tender, Soft Extremity: Normal Capillary Refill, Normal Inspection Neurologic/Psychiatric: Alert, Oriented x3 Skin: Normal Color, Warm/Dry Progress/Results/Core Measures Results/Orders Lab Results Laboratory Tests Test 08/03/19 16:21 08/03/19 16:40 Range/Units Urine Color YELLOW Urine Clarity CLEAR Urine pH 7.0 5-9 Urine Specific [place] 1.020 1.016-1.022 Urine Protein NEGATIVE NEGATIVE Urine Glucose (UA) NEGATIVE NEGATIVE Urine Ketones NEGATIVE NEGATIVE Urine Nitrite NEGATIVE NEGATIVE Urine Bilirubin NEGATIVE NEGATIVE Urine Urobilinogen 0.2 < = 1.0 MG/DL Urine Leukocyte Esterase NEGATIVE NEGATIVE Urine RBC (Auto) NEGATIVE NEGATIVE Urine RBC NONE /HPF Urine WBC NONE /HPF Urine Squamous Epithelial Cells >50 H /HPF Urine Crystals PRESENT H /LPF Urine Amorphous Sediment LARGE LONI PHOSPHATE H /LPF Urine Bacteria FEW H /HPF Urine Casts NONE /LPF Urine Mucus MODERATE H /LPF Urine Culture Indicated NO White Blood Count 9.5 4.3-11.0 10^3/uL Red Blood Count 4.08 L 4.35-5.85 10^6/uL Hemoglobin 12.0 11.5-16.0 G/DL Hematocrit 36 35-52 % Mean Corpuscular Volume 87 80-99 FL Mean Corpuscular Hemoglobin 29 25-34 PG Mean Corpuscular Hemoglobin Concent 34 32-36 G/DL Red Cell Distribution Width 13.3 10.0-14.5 % Platelet Count 257 130-400 10^3/uL Mean Platelet Volume 10.4 7.4-10.4 FL Neutrophils (%) (Auto) 73 42-75 % Lymphocytes (%) (Auto) 20 12-44 % Monocytes (%) (Auto) 6 0-12 % Eosinophils (%) (Auto) 1 0-10 % Basophils (%) (Auto) 0 0-10 % Neutrophils # (Auto) 6.9 1.8-7.8 X 10^3 Lymphocytes # (Auto) 1.8 1.0-4.0 X 10^3 Monocytes # (Auto) 0.6 0.0-1.0 X 10^3 Eosinophils # (Auto) 0.1 0.0-0.3 10^3/uL Basophils # (Auto) 0.0 0.0-0.1 10^3/uL Sodium Level 138 135-145 MMOL/L Potassium Level 3.5 L 3.6-5.0 MMOL/L Chloride Level 110 H 98-107 MMOL/L Carbon Dioxide Level 19 L 21-32 MMOL/L Anion Gap 9 5-14 MMOL/L Blood Urea Nitrogen 12 7-18 MG/DL Creatinine 0.52 L 0.60-1.30 MG/DL Estimat Glomerular Filtration Rate > 60 BUN/Creatinine Ratio 23 Glucose Level 92 70-105 MG/DL Calcium Level 8.6 8.5-10.1 MG/DL Corrected Calcium 8.7 8.5-10.1 MG/DL Total Bilirubin 0.1 0.1-1.0 MG/DL Aspartate Amino Transf (AST/SGOT) 11 5-34 U/L Alanine Aminotransferase (ALT/SGPT) 16 0-55 U/L Alkaline Phosphatase 69 40-136 U/L Total Protein 6.8 6.4-8.2 GM/DL Albumin 3.9 3.2-4.5 GM/DL My Orders Orders - VIVIANA WHITNEY APRN Comprehensive Metabolic Panel (08/03/19 16:34) Cbc With Automated Diff (08/03/19 16:34) Ua Culture If Indicated (08/03/19 16:34) Hcg,Quantitative (08/03/19 16:40) Vital Signs/I&O 08/03/19 16:15 Temp 36.9 Pulse 91 Resp 16 B/P (MAP) 111/71 (84) Pulse Ox 100 O2 Delivery Room Air Blood Pressure Mean: 84 POS Departure Impression Primary Impression: Low back pain during in first trimester Disposition: 01 HOME, SELF-CARE Condition: Stable Departure-Patient Inst. Decision time for Depature: 17:20 Referrals: FREDI CASTILLO MD (PCP/Family) Primary Care Physician Patient Instructions: Low Back Pain in Adults Add. Discharge Instructions: 1. Medication as directed 2. Return to ER for any concerns 3. All discharge instructions reviewed with patient and/or family. Voiced understanding. Scripts Cyclobenzaprine HCl (Cyclobenzaprine HCl) 10 Mg Tablet 5 MG PO Q8H PRN for PAIN-SEVERE (8-10), #15 TAB 0 Refills Prov: VIVIANA WHITNEY APRN 08/03/19 VIVIANA WHITNEY APRN Aug 03, 2019 16:44 POS
[2019-08-03 16:45] LABS: BASOPHILS % (AUTO) 0 % (0-10); EOSINOPHILS # (AUTO) 0.1 10^3/uL (0.0-0.3); EOSINOPHILS % (AUTO) 1 % (0-10); HEMATOCRIT 36 % (35-52); LYMPHOCYTES # (AUTO) 1.8 X 10^3 (1.0-4.0); LYMPHOCYTES % (AUTO) 20 % (12-44); MEAN CORPUSCULAR HEMOGLOBIN 29 PG (25-34); MEAN CORPUSCULAR HGB CONC 34 G/DL (32-36); MEAN CORPUSCULAR VOLUME 87 FL (80-99); MEAN PLATELET VOLUME 10.4 FL (7.4-10.4); MONOCYTES # (AUTO) 0.6 X 10^3 (0.0-1.0); MONOCYTES % (AUTO) 6 % (0-12); NEUTROPHILS # (AUTO) 6.9 X 10^3 (1.8-7.8); NEUTROPHILS % (AUTO) 73 % (42-75); PLATELET COUNT 257 10^3/uL (130-400); RED CELL DISTRIBUTION WIDTH 13.3 % (10.0-14.5); WHITE BLOOD COUNT 9.5 10^3/uL (4.3-11.0)
[2019-08-03 16:51] LABS: AMORPHOUS SEDIMENT,UR LARGE AMOR PHOSPHATE /LPF; BACTERIA,URINE FEW /HPF; SQUAMOUS EPITHELIAL CELL,UR >50 /HPF
[2019-08-03 17:02] LABS: ALANINE AMINOTRANSFERASE 16 U/L (0-55); ALBUMIN 3.9 GM/DL (3.2-4.5); ALKALINE PHOSPHATASE 69 U/L (40-136); BILIRUBIN,TOTAL 0.1 MG/DL (0.1-1.0); BUN/CREATININE RATIO 23; CALCIUM 8.6 MG/DL (8.5-10.1); CARBON DIOXIDE 19 MMOL/L (21-32); CHLORIDE 110 MMOL/L (98-107); CREATININE SERUM 0.52 MG/DL (0.60-1.30); GFR ESTIMATED > 60; GLUCOSE 92 MG/DL (70-105); POTASSIUM 3.5 MMOL/L (3.6-5.0); SODIUM 138 MMOL/L (135-145); TOTAL PROTEIN 6.8 GM/DL (6.4-8.2)
[2019-08-03] MEDS ORDERED: CYCL10TA9 PO (17:22)
--- NOTE | 2019-08-03 17:30 | NUR ---
VIVIANA IN ROOM TALKING TO PT WITH THE LANGUAGE LINE.
--- NOTE | 2019-08-03 17:41 | NUR ---
VIVIANA TALKING WITH PT USING THE LANGUAGE LINE AGAIN DUE TO PT FEELING THOUGH THIS IS SOMETHING MORE SERIOUS THEN A MUSCLE ACHE.
[2019-08-03 17:51] VITALS: BP 111/71
--- NOTE | 2019-08-03 17:54 | NUR ---
UPON DISCHARGE PT HAD MORE QUESTIONS. LANGUAGE LINE USED AGAIN.
== END 2019-08-03 17:51 | disposition home or self-care (01) ==
LOC: EDUNIT# 15:53 → ER 15:55
DX: O99.89 Other specified diseases and conditions complicating pregnancy, childbirth and the puerperium (principal); M54.5 Low back pain; Z3A.12 12 weeks gestation of pregnancy; Z87.440 Personal history of urinary (tract) infections
CPT/HCPCS: 36415; 80053; 81000; 84702; 85025

== ENCOUNTER → 2019-08-08 | Outpatient (CLI) | payer OTHER ==
[~2019-08-08] MED LIST changes: +CYCL10TA9 PO
--- NOTE | 2019-08-08 09:53 | Diagnostic Imaging Report ---
PROCEDURE: US Renal Bilateral. TECHNIQUE: Multiple real-time grayscale images were obtained over the kidneys in various projections bilaterally. INDICATION: Right flank pain. COMPARISON: There are no prior studies available for comparison. FINDINGS: Both kidneys were identified. The right kidney measures 11.6 x 4.4 x 4.0 cm while the left kidney is estimated at 11.4 x 4.3 x 5.5 cm. There is evidence for a solid renal mass or for hydronephrosis of either kidney. The renal cortices are normal in thickness and echogenicity. There is no shadowing from the kidneys to suggest nephrolithiasis. The bladder was imaged during the course of the exam. The bladder is only partially filling and consequently not optimally evaluated. There is no obvious bladder abnormality evident. Both ureteral jets were noted. IMPRESSION: 1. There is no evidence for a solid renal mass or for an acute abnormality of either kidney. 2. The urinary bladder is grossly unremarkable. Dictated by: Dictated on workstation # [id number]
== END ==
LOC: RAD 09:01
PROVIDERS: ATTEND Nurse Practitioner Family
DX: R10.9 Unspecified abdominal pain (principal)
CPT/HCPCS: 76770

== ENCOUNTER 2020-02-07 19:04 | Inpatient (IN) | payer OTHER ==
[~2020-02-07] VITALS: Ht 157.5 cm; Wt 82.2 kg
--- NOTE | 2020-02-07 19:20 | NUR ---
NANO FELICIANO presented to unit via from ED, accompanied by , with c/o CONTRACTIONS. NANO FELICIANO weighed, gowned, voided, and to bed. EFHM and TOCO applied, VS taken. NANO FELICIANO oriented to bed controls, call light, TV, heat, and A/C controls.
--- NOTE | 2020-02-07 19:25 | NUR ---
Amnioswab negative. Nurse sees no fluid leaking and can feel bad during SVE. SVE shows pt is 4cm dilated, 50% effaced.
[2020-02-07 19:33] VITALS: BP 117/69
--- NOTE | 2020-02-07 19:50 | NUR ---
Dr. Jara called with report of pt. Informed of SVE and informed of results of amnioswab. Informed that pt has contracted once in the last twenty minutes of being on the monitor. Dr. Jara orders pt to be rechecked in one hour and to continue to watch her.
[2020-02-07 20:00] VITALS: BP 117/69
[2020-02-07 20:02] VITALS: BP 117/69
[2020-02-07 21:02] VITALS: BP 113/69
--- NOTE | 2020-02-07 21:09 | NUR ---
Dr. Jara called with SVE report. states that she can have the option of staying under observation in case her water breaks, unless she wants to labor at home.
--- NOTE | 2020-02-07 21:20 | NUR ---
orders and education provided for pt. Pt. states that she wants to stay until 2300 and reevaluate then. states that is fine and to recheck pt at 2300.
--- OUTSIDE RECORDS SUMMARY | 2020-02-07 22:05 | XMS REPORT | Continuity of Care Document ---
Author Organization Unknown Address Unknown Phone Unavailable Allergies Active Description Code Type Severity Reaction Onset Reported/Identified Relationship to Patient Clinical Status Yes No Known Drug Allergies [id number] Drug Allergy Unknown N/A 11/17/2017 Medications There is no data. Problems Date Dx Coded Attending Type Code Diagnosis Diagnosed By 11/18/2017 NED RITCHIE MD Ot Z36.8 9 ENCOUNTER FOR OTHER SPECIFIED 11/18/2017 NED RITCHIE MD R Ot Z3A.2 5 25 WEEKS GESTATION OF 11/18/2017 NED RITCHIE MD Ot O60.14X0 LABOR THIRD TRI W DELIVE 11/18/2017 NED RITCHIE MD R Ot O62.3 PRECIPITATE LABOR 11/18/2017 NED RITCHIE MD R Ot Z37.0 SINGLE LIVE 11/18/2017 NED RITCHIE MD Ot Z3A.3 5 35 WEEKS GESTATION OF 11/18/2017 NED RITCHIE MD Ot Z36.8 9 ENCOUNTER FOR OTHER SPECIFIED 11/18/2017 NED RITCHIE MD R Ot Z3A.2 5 25 WEEKS GESTATION OF 11/18/2017 NED RITCHIE MD Ot Z36.8 9 ENCOUNTER FOR OTHER SPECIFIED 11/18/2017 NED RITCHIE MD R Ot Z3A.2 5 25 WEEKS GESTATION OF 11/19/2017 NED RITCHIE MD R Ot Z36.8 9 ENCOUNTER FOR OTHER SPECIFIED 11/19/2017 NED RITCHIE MD Ot Z3A.2 5 25 WEEKS GESTATION OF 11/19/2017 NED RITCHIE MD R Ot Z36.8 9 ENCOUNTER FOR OTHER SPECIFIED 11/19/2017 NED RITCHIE MD R Ot Z3A.2 5 25 WEEKS GESTATION OF 12/13/2017 NED RITCHIE MD R Ot Z36.8 9 ENCOUNTER FOR OTHER SPECIFIED 12/13/2017 NED RITCHIE MD R Ot Z3A.2 5 25 WEEKS GESTATION OF 12/28/2017 NED RITCHIE MD Ot Z36.8 9 ENCOUNTER FOR OTHER SPECIFIED 12/28/2017 NED RITCHIE MD Ot Z3A.2 5 25 WEEKS GESTATION OF 01/05/2018 NED RITCHIE MD Ot Z36.8 9 ENCOUNTER FOR OTHER SPECIFIED 01/05/2018 NED RITCHIE MD R Ot Z3A.2 5 25 WEEKS GESTATION OF 01/05/2018 NED RITCHIE MD R Ot Z36.8 9 ENCOUNTER FOR OTHER SPECIFIED 01/05/2018 NED RITCHIE MD R Ot Z3A.2 5 25 WEEKS GESTATION OF 01/06/2018 NED RITHCIE MD Ot Z36.8 9 ENCOUNTER FOR OTHER SPECIFIED 01/06/2018 NED RITCHIE MD Ot Z3A.2 5 25 WEEKS GESTATION OF 07/13/2018 NED RITCHIE MD Ot Z36.8 9 ENCOUNTER FOR OTHER SPECIFIED 07/13/2018 NED RITCHIE MD Ot Z3A.2 5 25 WEEKS GESTATION OF 07/14/2018 FREDI CASTILLO MD Ot Z34.82 ENCOUNTER FOR SUPRVSN OF NORMAL PREGNANC 07/14/2018 FREDI CASTILLO MD Ot Z3A.20 20 WEEKS GESTATION OF 07/28/2018 FREDI CASTILLO MD Ot Z34.82 ENCOUNTER FOR SUPRVSN OF NORMAL PREGNANC 07/28/2018 FREDI CASTILLO MD Ot Z3A.20 20 WEEKS GESTATION OF 11/27/2018 FREDI CASTILLO MD Ot E05.80 OTHER THYROTOXICOSIS WITHOUT THYROTOXIC 11/27/2018 FREDI CASTILLO MD Ot O09.213 SUPRVSN OF PREG W HISTORY OF PRE-TERM LA 11/27/2018 FREDI CASTILLO MD Ot O70 .0 FIRST DEGREE PERINEAL LACERATION DURING 11/27/2018 FREDI CASTILLO MD Ot O99.284 ENDOCRINE, NUTRITIONAL AND METABOLIC DIS 11/27/2018 FREDI CASTILLO MD Ot Z37 .0 SINGLE LIVE 11/27/2018 FREDI CASTILLO MD Ot Z3A.39 39 WEEKS GESTATION OF 11/28/2018 NED RITCHIE MD Ot Z36.8 9 ENCOUNTER FOR OTHER SPECIFIED 11/28/2018 NED RITCHIE MD Ot Z3A.2 5 25 WEEKS GESTATION OF 11/28/2018 FREDI CASTILLO MD Ot Z34.82 ENCOUNTER FOR SUPRVSN OF NORMAL PREGNANC 11/28/2018 FREDI CASTILLO MD Ot Z3A.20 20 WEEKS GESTATION OF 08/03/2019 VIVIANA WHITNEY APRN Ot M54 .5 LOW BACK PAIN 08/03/2019 VIVIANA WHITNEY APRN Ot O99.89 OTH DISEASES AND CONDITIONS COMPL PREG/C 08/03/2019 VIVIANA WHITNEY APRN Ot Z3A.12 12 WEEKS GESTATION OF 08/03/2019 VIVIANA WHITNEY APRN Ot Z87.440 PERSONAL HISTORY OF URINARY (TRACT) INFE 08/03/2019 NED RITCHIE MD Ot Z36.8 9 ENCOUNTER FOR OTHER SPECIFIED 08/03/2019 NED RITCHIE MD Ot Z3A.2 5 25 WEEKS GESTATION OF 08/03/2019 FREDI CASTILLO MD Ot Z34.82 ENCOUNTER FOR SUPRVSN OF NORMAL PREGNANC 08/03/2019 FREDI CASTILLO MD Ot Z3A.20 20 WEEKS GESTATION OF 08/07/2019 VIVIANA WHITNEY APRN Ot M54 .5 LOW BACK PAIN 08/07/2019 VIVIANA WHITNEY APRN Ot O99.89 OTH DISEASES AND CONDITIONS COMPL PREG/C 08/07/2019 VIVIANA WHITNEY APRN Ot Z3A.12 12 WEEKS GESTATION OF 08/07/2019 VIVIANA WHITNEY APRN Ot Z87.440 PERSONAL HISTORY OF URINARY (TRACT) INFE 08/08/2019 NED RITCHIE MD Ot Z36.8 9 ENCOUNTER FOR OTHER SPECIFIED 08/08/2019 NED RITCHIE MD Ot Z3A.2 5 25 WEEKS GESTATION OF 08/08/2019 FREDI CASTILLO MD Ot Z34.82 ENCOUNTER FOR SUPRVSN OF NORMAL PREGNANC 08/08/2019 FREDI CASTILLO MD Ot Z3A.20 20 WEEKS GESTATION OF 08/13/2019 VIVIANA WHITNEY APRN Ot R10 .9 UNSPECIFIED ABDOMINAL PAIN 09/20/2019 VIVIANA WHITNEY APRN Ot R10 .9 UNSPECIFIED ABDOMINAL PAIN 09/21/2019 VIVIANA WHITNEY APRN Ot M54 .5 LOW BACK PAIN 09/21/2019 VIVIANA WHITNEY APRN Ot O99.89 OTH DISEASES AND CONDITIONS COMPL PREG/C 09/21/2019 VIVIANA WHITNEY APRN Ot Z3A.12 12 WEEKS GESTATION OF 09/21/2019 VIVIANA WHITNEY APRN Ot Z87.440 PERSONAL HISTORY OF URINARY (TRACT) INFE 09/21/2019 VIVIANA WHITNEY APRN Ot R10 .9 UNSPECIFIED ABDOMINAL PAIN Procedures Code Description Performed By Per formed On [id number] ID LIVER OF PRODUCTS OF CONCEPTION, EXTE 11/17/2017 2BA2CAT RE PAIR PERINEUM SKIN, EXTERNAL APPROACH 11/26/[id number] OF PRODUCTS OF CONCEPTION, EXTE 11/26/2018 Results Test Result Range CBC - 07/27/17 11:24 WHITE BLOOD CELL COUNT 8.1 Thousand/uL 3 .8-10.8 RED BLOOD CELL COUNT 3.77 Million/uL 3.8 0-5.10 HEMOGLOBIN 11.6 g/dL 11.7-15.5 HEMATOCRIT 34.9 % 35.0-45.0 MCV 92.6 fL 80.0-100.0 MCH 30.8 pg 27.0-33.0 MCHC 33.2 g/dL 32.0-36.0 RDW 13.0 % 11.0-15.0 PLATELET COUNT 267 Thousand/uL 140-400 MPV 10.6 fL 7.5-12.5 ABSOLUTE NEUTROPHILS 6472 cells/uL 1500- 7800 ABSOLUTE LYMPHOCYTES 1264 cells/uL 850-3 900 ABSOLUTE MONOCYTES 316 cells/uL 200-950 ABSOLUTE EOSINOPHILS 41 cells/uL 15-500 ABSOLUTE BASOPHILS 8 cells/uL 0-200 NEUTROPHILS 79.9 % NRG LYMPHOCYTES 15.6 % NRG MONOCYTES 3.9 % NRG EOSINOPHILS 0.5 % NRG BASOPHILS 0.1 % NRG SUREPATH FPGS AND HPV mRNA E6/E7 REFLEX GENOTYPES 16,18/45 - 07/27/17 11:24 CLINICAL INFORMATION: NRG LMP: NRG PREV. PAP: NRG PREV. BX: NRG SOURCE: NRG STATEMENT OF ADEQUACY: NRG INTERPRETATION/RESULT: NRG ACCOUNTING INSTRUCTOR: NRG HPV mRNA E6/E7, SUREPATH VIAL Not Detected NOT DETECTED COMMENT: NRG CBC - 10/04/17 17:22 WHITE BLOOD CELL COUNT 11.7 Thousand/uL 3.8-10.8 RED BLOOD CELL COUNT 4.07 Million/uL 3.8 0-5.10 HEMOGLOBIN 12.4 g/dL 11.7-15.5 HEMATOCRIT 37.5 % 35.0-45.0 MCV 92.1 fL 80.0-100.0 MCH 30.5 pg 27.0-33.0 MCHC 33.1 g/dL 32.0-36.0 RDW 12.0 % 11.0-15.0 PLATELET COUNT 251 Thousand/uL 140-400 MPV 10.8 fL 7.5-12.5 ABSOLUTE NEUTROPHILS 9582 cells/uL 1500- 7800 ABSOLUTE LYMPHOCYTES 1474 cells/uL 850-3 900 ABSOLUTE MONOCYTES 503 cells/uL 200-950 ABSOLUTE EOSINOPHILS 105 cells/uL 15-500 ABSOLUTE BASOPHILS 35 cells/uL 0-200 NEUTROPHILS 81.9 % NRG LYMPHOCYTES 12.6 % NRG MONOCYTES 4.3 % NRG EOSINOPHILS 0.9 % NRG BASOPHILS 0.3 % NRG Complete blood count (CBC) with automate d white blood cell (WBC) differential - 11/17/17 07:40 Blood leukocytes automated count (number/volume) 12.7 10*3/uL 4.3-11.0 Blood erythrocytes automated count (number/volume) 4.23 10*6/uL 4.35-5.85 Venous blood hemoglobin measurement (mass/volume) 12.8 g/dL 11.5-16.0 Blood hematocrit (volume fraction) 38 % 35-52 Automated erythrocyte mean corpuscular volume 89 [ foz_us] 80-99 Automated erythrocyte mean corpuscular h emoglobin (mass per erythrocyte) 30 pg 25-34 Automated erythrocyte mean corpuscular h emoglobin concentration measurement (mass/volume) 34 g/dL 32-36 Automated erythrocyte distribution width ratio 13. 5 % 10.0- 14.5 Automated blood platelet count (count/volume) 240 10*3/uL 130-400 Automated blood platelet mean volume measurement 11.4 [foz_us] 7.4-10.4 Automated blood neutrophils/100 leukocytes 79 % 42-75 Automated blood lymphocytes/100 leukocytes 16 % 12-44 Blood monocytes/100 leukocytes 5 % 0-12 Automated blood eosinophils/100 leukocytes 1 % 0-10 Automated blood basophils/100 leukocytes 0 % 0-10 Blood neutrophils automated count (number/volume) 10.0 10*3 1.8-7.8 Blood lymphocytes automated count (number/volume) 2.0 10*3 1.0-4.0 Blood monocytes automated count (number/volume) 0. 6 10*3 0.0-1.0 Automated eosinophil count 0.1 10*3/uL 0 .0-0.3 Automated blood basophil count (count/volume) 0.0 10*3/uL 0.0-0.1 Blood type T Indirect antibody screen pa leticia - 11/17/17 07:40 ABO+Rh group AP NRG Transfusion band number [id number] NRG Blood group antibody screen NEGATIVE NR G Complete blood count (CBC) with automate d white blood cell (WBC) differential - 11/18/17 05:10 Blood leukocytes automated count (number/volume) 11.9 10*3/uL 4.3-11.0 Blood erythrocytes automated count (number/volume) 3.71 10*6/uL 4.35-5.85 Venous blood hemoglobin measurement (mass/volume) 11.3 g/dL 11.5-16.0 Blood hematocrit (volume fraction) 33 % 35-52 Automated erythrocyte mean corpuscular volume 89 [ foz_us] 80-99 Automated erythrocyte mean corpuscular h emoglobin (mass per erythrocyte) 31 pg 25-34 Automated erythrocyte mean corpuscular h emoglobin concentration measurement (mass/volume) 34 g/dL 32-36 Automated erythrocyte distribution width ratio 13. 3 % 10.0- 14.5 Automated blood platelet count (count/volume) 212 10*3/uL 130-400 Automated blood platelet mean volume measurement 11.2 [foz_us] 7.4-10.4 Automated blood neutrophils/100 leukocytes 71 % 42-75 Automated blood lymphocytes/100 leukocytes 20 % 12-44 Blood monocytes/100 leukocytes 8 % 0-12 Automated blood eosinophils/100 leukocytes 1 % 0-10 Automated blood basophils/100 leukocytes 0 % 0-10 Blood neutrophils automated count (number/volume) 8.4 10*3 1.8-7.8 Blood lymphocytes automated count (number/volume) 2.4 10*3 1.0-4.0 Blood monocytes automated count (number/volume) 0. 9 10*3 0.0-1.0 Automated eosinophil count 0.2 10*3/uL 0 .0-0.3 Automated blood basophil count (count/volume) 0.0 10*3/uL 0.0-0.1 CULTURE, GENITAL - 05/05/18 14:26 CULTURE, GENITAL SEE NOTE NRG TSH - 05/09/18 11:23 TSH 0.02 mIU/L NRG T3 TOTAL - 06/09/18 15:15 T3, TOTAL 220 ng/dL 76-181 TSH w/ FREE T4 - 07/07/18 16:02 TSH 0.20 mIU/L NRG T4, FREE 1.0 ng/dL 0.8-1.8 THYROID STIMULATING IMMUNOGLOBULIN - 16:12 TSI <89 % baseline <140 Complete blood count (CBC) with automate d white blood cell (WBC) differential - 11/25/18 23:40 Blood leukocytes automated count (number/volume) 12.6 10*3/uL 4.3-11.0 Blood erythrocytes automated count (number/volume) 3.91 10*6/uL 4.35-5.85 Venous blood hemoglobin measurement (mass/volume) 11.3 g/dL 11.5-16.0 Blood hematocrit (volume fraction) 34 % 35-52 Automated erythrocyte mean corpuscular volume 87 [ foz_us] 80-99 Automated erythrocyte mean corpuscular h emoglobin (mass per erythrocyte) 29 pg 25-34 Automated erythrocyte mean corpuscular h emoglobin concentration measurement (mass/volume) 33 g/dL 32-36 Automated erythrocyte distribution width ratio 15. 4 % 10.0- 14.5 Automated blood platelet count (count/volume) 240 10*3/uL 130-400 Automated blood platelet mean volume measurement 11.4 [foz_us] 7.4-10.4 Automated blood neutrophils/100 leukocytes 76 % 42-75 Automated blood lymphocytes/100 leukocytes 16 % 12-44 Blood monocytes/100 leukocytes 7 % 0-12 Automated blood eosinophils/100 leukocytes 1 % 0-10 Automated blood basophils/100 leukocytes 0 % 0-10 Blood neutrophils automated count (number/volume) 9.5 10*3 1.8-7.8 Blood lymphocytes automated count (number/volume) 2.1 10*3 1.0-4.0 Blood monocytes automated count (number/volume) 0. 9 10*3 0.0-1.0 Automated eosinophil count 0.1 10*3/uL 0 .0-0.3 Automated blood basophil count (count/volume) 0.0 10*3/uL 0.0-0.1 Blood type T Indirect antibody screen pa leticia - 11/25/18 23:40 ABO+Rh group AP NRG Transfusion band number [id number] NRG Blood group antibody screen NEGATIVE NR G Complete blood count (CBC) with automate d white blood cell (WBC) differential - 11/27/18 05:35 Blood leukocytes automated count (number/volume) 9.3 10*3/uL 4.3-11.0 Blood erythrocytes automated count (number/volume) 3.33 10*6/uL 4.35-5.85 Venous blood hemoglobin measurement (mass/volume) 9.9 g/dL 11.5-16.0 Blood hematocrit (volume fraction) 30 % 35-52 Automated erythrocyte mean corpuscular volume 89 [ foz_us] 80-99 Automated erythrocyte mean corpuscular h emoglobin (mass per erythrocyte) 30 pg 25-34 Automated erythrocyte mean corpuscular h emoglobin concentration measurement (mass/volume) 33 g/dL 32-36 Automated erythrocyte distribution width ratio 16. 0 % 10.0- 14.5 Automated blood platelet count (count/volume) 199 10*3/uL 130-400 Automated blood platelet mean volume measurement 11.4 [foz_us] 7.4-10.4 Automated blood neutrophils/100 leukocytes 63 % 42-75 Automated blood lymphocytes/100 leukocytes 27 % 12-44 Blood monocytes/100 leukocytes 8 % 0-12 Automated blood eosinophils/100 leukocytes 3 % 0-10 Automated blood basophils/100 leukocytes 0 % 0-10 Blood neutrophils automated count (number/volume) 5.9 10*3 1.8-7.8 Blood lymphocytes automated count (number/volume) 2.5 10*3 1.0-4.0 Blood monocytes automated count (number/volume) 0. 7 10*3 0.0-1.0 Automated eosinophil count 0.3 10*3/uL 0 .0-0.3 Automated blood basophil count (count/volume) 0.0 10*3/uL 0.0-0.1 CMP - 01/05/19 14:38 GLUCOSE 85 mg/dL 65-99 UREA NITROGEN (BUN) 14 mg/dL 7-25 CREATININE 0.57 mg/dL 0.50-1.10 eGFR NON-AFR. [facility] 120 mL/min/1.73m2 > OR = 60 eGFR 139 mL/min/1.73m2 > OR = 60 BUN/CREATININE RATIO NOT APPLICABLE (calc) 6-22 SODIUM 142 mmol/L 135-146 POTASSIUM 4.4 mmol/L 3.5-5.3 CHLORIDE 107 mmol/L 98-110 CARBON DIOXIDE 27 mmol/L 20-32 CALCIUM 9.4 mg/dL 8.6-10.2 PROTEIN, TOTAL 7.5 g/dL 6.1-8.1 ALBUMIN 4.4 g/dL 3.6-5.1 GLOBULIN 3.1 g/dL (calc) 1.9-3.7 ALBUMIN/GLOBULIN RATIO 1.4 (calc) 1.0-2. 5 BILIRUBIN, TOTAL 0.2 mg/dL 0.2-1.2 ALKALINE PHOSPHATASE 119 U/L 33-115 AST 17 U/L 10-30 ALT 24 U/L 6- LIPID PANEL - 02/08/19 12:27 CHOLESTEROL, TOTAL 150 mg/dL <200 HDL CHOLESTEROL 33 mg/dL >50 TRIGLYCERIDES 205 mg/dL <150 LDL-CHOLESTEROL 87 mg/dL (calc) NRG CHOL/HDLC RATIO 4.5 (calc) <5.0 NON HDL CHOLESTEROL 117 mg/dL (calc) <13 0 [facility] - 02/08/19 12:27 GLUCOSE 85 mg/dL 65-99 UREA NITROGEN (BUN) 19 mg/dL 7-25 CREATININE 0.59 mg/dL 0.50-1.10 eGFR NON-AFR. [facility] 119 mL/min/1.73m2 > OR = 60 eGFR 138 mL/min/1.73m2 > OR = 60 BUN/CREATININE RATIO NOT APPLICABLE (calc) 6-22 SODIUM 141 mmol/L 135-146 POTASSIUM 4.1 mmol/L 3.5-5.3 CHLORIDE 107 mmol/L 98-110 CARBON DIOXIDE 26 mmol/L 20-32 CALCIUM 8.9 mg/dL 8.6-10.2 PROTEIN, TOTAL 6.9 g/dL 6.1-8.1 ALBUMIN 4.2 g/dL 3.6-5.1 GLOBULIN 2.7 g/dL (calc) 1.9-3.7 ALBUMIN/GLOBULIN RATIO 1.6 (calc) 1.0-2. 5 BILIRUBIN, TOTAL 0.3 mg/dL 0.2-1.2 ALKALINE PHOSPHATASE 91 U/L 33-115 AST 17 U/L 10-30 ALT 26 U/L 6-29 CERULOPLASMIN - 02/08/19 12:27 CERULOPLASMIN 38 mg/dL 18-53 CULTURE, GENITAL - 07/13/19 19:00 CULTURE, GENITAL SEE NOTE NRG Complete urinalysis with reflex to cultu re - 08/03/19 16:21 Urine color determination YELLOW NRG Urine clarity determination CLEAR NR G Urine pH measurement by test strip 7.0 5-9 Specific gravity of urine by test strip 1.020 1.016-1.022 Urine protein assay by test strip, semi-quantitative NEGATIVE NEGATIVE Urine glucose detection by automated test strip NE GATIVE NEGATIVE Erythrocytes detection in urine sediment by light micr oscopy NEGATIVE NEGATIVE Urine ketones detection by automated test strip NE GATIVE NEGATIVE Urine nitrite detection by test strip NEGATIVE NEGATIVE Urine total bilirubin detection by test strip NEGA TIVE NEGATIVE Urine urobilinogen measurement by automated test strip (mass/volume) 0.2 mg/dL < = 1.0 Urine leukocyte esterase detection by dipstick NEG ATIVE NEGATIVE Automated urine sediment erythrocyte cou nt by microscopy (number/high power field) NONE NRG Automated urine sediment leukocyte count by microscopy (number/high power field) NONE NRG Bacteria detection in urine sediment by light microsco py FEW NRG Squamous epithelial cells detection in u rine sediment by light microscopy >50 NRG Crystals detection in urine sediment by light microsco py PRESENT NRG Casts detection in urine sediment by light microscopy NONE NRG Mucus detection in urine sediment by light microscopy MODERATE NRG Complete urinalysis with reflex to culture NO NRG Amorphous sediment detection in urine sediment by ligh t microscopy LARGE LONI PHOSPHATE NRG Complete blood count (CBC) with automate d white blood cell (WBC) differential - 08/03/19 16:40 Blood leukocytes automated count (number/volume) 9.5 10*3/uL 4.3-11.0 Blood erythrocytes automated count (number/volume) 4.08 10*6/uL 4.35-5.85 Venous blood hemoglobin measurement (mass/volume) 12.0 g/dL 11.5-16.0 Blood hematocrit (volume fraction) 36 % 35-52 Automated erythrocyte mean corpuscular volume 87 [ foz_us] 80-99 Automated erythrocyte mean corpuscular h emoglobin (mass per erythrocyte) 29 pg 25-34 Automated erythrocyte mean corpuscular h emoglobin concentration measurement (mass/volume) 34 g/dL 32-36 Automated erythrocyte distribution width ratio 13. 3 % 10.0- 14.5 Automated blood platelet count (count/volume) 257 10*3/uL 130-400 Automated blood platelet mean volume measurement 10.4 [foz_us] 7.4-10.4 Automated blood neutrophils/100 leukocytes 73 % 42-75 Automated blood lymphocytes/100 leukocytes 20 % 12-44 Blood monocytes/100 leukocytes 6 % 0-12 Automated blood eosinophils/100 leukocytes 1 % 0-10 Automated blood basophils/100 leukocytes 0 % 0-10 Blood neutrophils automated count (number/volume) 6.9 10*3 1.8-7.8 Blood lymphocytes automated count (number/volume) 1.8 10*3 1.0-4.0 Blood monocytes automated count (number/volume) 0. 6 10*3 0.0-1.0 Automated eosinophil count 0.1 10*3/uL 0 .0-0.3 Automated blood basophil count (count/volume) 0.0 10*3/uL 0.0-0.1 Comprehensive metabolic panel - 08/03/19 16:40 Serum or plasma sodium measurement (moles/volume) 138 mmol/L 135-145 Serum or plasma potassium measurement (moles/volume) 3.5 mmol/L 3.6-5.0 Serum or plasma chloride measurement (moles/volume) 110 mmol/L 98-107 Carbon dioxide 19 mmol/L 21-32 Serum or plasma anion gap determination (moles/volume) 9 mmol/L 5-14 Serum or plasma urea nitrogen measurement (mass/volume ) 12 mg/dL 7-18 Serum or plasma creatinine measurement (mass/volume) 0.52 mg/dL 0.60-1.30 Serum or plasma urea nitrogen/creatinine mass ratio 23 NRG Serum or plasma creatinine measurement w ith calculation of estimated glomerular filtration rate > NRG Serum or plasma glucose measurement (mass/volume) 92 mg/dL 70-105 Serum or plasma calcium measurement (mass/volume) 8.6 mg/dL 8.5-10.1 Serum or plasma total bilirubin measurement (mass/volu me) 0.1 mg/dL 0.1-1.0 Serum or plasma alkaline phosphatase mynor surement (enzymatic activity/volume) 69 U/L 40-136 Serum or plasma aspartate aminotransfera se measurement (enzymatic activity/volume) 11 U/L 5-34 Serum or plasma alanine aminotransferase measurement (enzymatic activity/volume) 16 U/L 0-55 Serum or plasma protein measurement (mass/volume) 6.8 g/dL 6.4-8.2 Serum or plasma albumin measurement (mass/volume) 3.9 g/dL 3.2-4.5 CALCIUM CORRECTED 8.7 mg/dL 8.5-10.1 Serum or plasma choriogonadotropin measu rement (units/volume) - 08/03/19 16:40 Serum or plasma choriogonadotropin measurement (units/ volume) 56523 m[iU]/mL <5 RUBELLA IMMUNE STATUS - 08/28/19 15:23 RUBELLA ANTIBODY (IGG) 4.50 index NRG TEST AUTHORIZATION - 09/25/19 15:00 TEST NAME: TSI (THYROID STIMULATING TRAB NRG TEST CODE: [id number] 859SB 867S NRG CLIENT CONTACT: SYMONE CONCETTA NRG REPORT ALWAYS MESSAGE SIGNATURE NRG COMMENT NRG TSH - 11/29/19 13:04 TSH 0.29 mIU/L NRG TEST AUTHORIZATION - 11/29/19 13:04 TEST NAME: T3, TOTAL T4 (THYROXINE), TOT NRG TEST CODE: [id number] 867SB NRG CLIENT CONTACT: EDU CARRINGTON NRG REPORT ALWAYS MESSAGE SIGNATURE NRG COMMENT NRG CULTURE, GROUP B STREP (VAGINAL) - 01/14 14:32 STREPTOCOCCUS, GROUP B CULTURE SEE NOTE NRG Encounters ACCT No. Visit Date/Time Discharge Status Pt. Type Provider Facility Loc./Unit Complaint [id number] 01/23/2020 14:00:00 01/23/2020 23:59: 59 CLS Outpatient ANNA RAMEY, FREDI [facility] [id number] 01/15/2020 10:20:00 Document Registration [id number] 11/29/2019 11:20:00 Document Registration [id number] 09/25/2019 13:20:00 Document Registration [id number] 08/28/2019 13:20:00 Document Registration [id number] 07/13/2019 15:40:00 Document Registration [id number] 02/08/2019 12:20:00 Document Registration [id number] 01/05/2019 14:00:00 Document Registration [id number] 07/11/2018 15:20:00 Document Registration [id number] 07/07/2018 14:20:00 Document Registration [id number] 06/09/2018 14:00:00 Document Registration [id number] 05/09/2018 11:00:00 Document Registration [id number] 05/05/2018 13:00:00 Document Registration [id number] 10/04/2017 14:20:00 Document Registration [id number] 07/27/2017 10:00:00 Document Registration [id number] 08/08/2019 09:15:00 23:59:59 CLS Outpatient VIVIANA WHITNEY APRN [facility] RAD RT FLANK PAIN [id number] 08/03/2019 15:55:00 17:51:00 DIS Outpatient VIVIANA WHITNEY APRN [facility] ER BACK PAIN - 12 WKS PREG [id number] 11/26/2018 00:58:00 15:00:00 DIS Inpatient FREDI CASTILLO MD [facility] LDRP LABOR [id number] 07/13/2018 14:58:00 23:59:59 CLS Outpatient FREDI CASTILLO MD [facility] RAD NORMAL [id number] 11/17/2017 06:57:00 018 11:05:00 DIS Inpatient NED RITCHIE MD [facility] LDRP RULE OUT LABOR [id number] 09/09/2017 10:13:00 23:59:59 CLS Outpatient NED RITCHIE MD [facility] RAD NORMAL IN [facility]
[2020-02-07 23:10] VITALS: BP 114/75
[2020-02-08] VITALS (23 sets, daily range): BP systolic 98–134; BP diastolic 56–83
[2020-02-08 00:56] LABS: BASOPHILS % (AUTO) 0 % (0-10); EOSINOPHILS # (AUTO) 0.2 10^3/uL (0.0-0.3); EOSINOPHILS % (AUTO) 1 % (0-10); HEMATOCRIT 35 % (35-52); HEMOGLOBIN 11.4 G/DL (11.5-16.0); LYMPHOCYTES # (AUTO) 2.1 X 10^3 (1.0-4.0); LYMPHOCYTES % (AUTO) 17 % (12-44); MEAN CORPUSCULAR HEMOGLOBIN 28 PG (25-34); MEAN CORPUSCULAR HGB CONC 33 G/DL (32-36); MEAN CORPUSCULAR VOLUME 86 FL (80-99); MEAN PLATELET VOLUME 11.4 FL (7.4-10.4); MONOCYTES # (AUTO) 0.7 X 10^3 (0.0-1.0); MONOCYTES % (AUTO) 6 % (0-12); NEUTROPHILS # (AUTO) 9.5 X 10^3 (1.8-7.8); NEUTROPHILS % (AUTO) 76 % (42-75); PLATELET COUNT 239 10^3/uL (130-400); RED CELL DISTRIBUTION WIDTH 15.1 % (10.0-14.5); WHITE BLOOD COUNT 12.4 10^3/uL (4.3-11.0)
[2020-02-08] MEDS ORDERED: MINERAL OIL CONCENTRATE 99.9% 15 ML UDC TOP PRN (01:00)
[2020-02-08] MEDS ORDERED: PREN1TAB79 PO (01:02)
[2020-02-08] MEDS ORDERED: FERR325T18 PO (01:02)
--- NOTE | 2020-02-08 01:03 | History & Physical-OB ---
OB - Chief Complaint & HPI Date/Time Date of Admission: Date of Admission: February 07, 2020 at 19:34 Date seen by a Provider: February 08, 2020 Time Seen by a Provider: 01:05 Chief Complaint/History OB-Reason for Admission/Chief: Onset of Labor Hx : 8 Hx Para: [id number] Expected Date of Delivery: February 10, 2020 Gestational Age in Weeks: 39 Gestational Age in Days: 4 History of Labs A+, antibody neg, RI. HIV/HepB/RPR NR. TSH low, total T4 slightly high, total T3 less than 1.5x non levels, thyroid stimulating antibodies neg. GBS neg. Allergies and Home Medications Allergies Coded Allergies: No Known Drug Allergies (Unverified , 11/17/17) Home Medications Ferrous Sulfate 325 Mg Tablet, 325 MG PO DAILY, (Reported) Vit W-Ca,Fe,FA(<1 mg) 1 Each Tablet, 1 EACH PO DAILY, (Reported) Patient Home Medication List Home Medication List Reviewed: Yes OB - History Hx of Present Care: Yes Ultrasounds: Normal mid trimester US Obstetrical Complications: None (subclinical hyperthyroidism, anemia) Obstetrical History Hx : 8 Hx Para: 6 Hx # Term Pregnancies: 5 Hx # Pregnancies: 1 Number of Living Children: 6 Hx Termination: No Hx Multiple Gestation: No Hx Ectopic : No Hx Stillbirth: No Hx Complication: No Hx Induced Hypertens: No Hx Maternal Gestational Diabet: No Hx Hemorrhage: No Delivery History Hx Dystocia: No Hx Forceps Assisted Delivery: No Hx Vacuum Extraction Assisted: No Hx Placenta Abnormality: No Hx Distress: No Hx Large For Gestational Age I: No Hx Small for Gestational Age I: No Hx Section: No Hx Vaginal Delivery Post C-Sec: No Hx Blood Disorders: No Adverse Rxn to Tranfusion: No Patient Past Medical History PMHx: Subclinical hypothyroidism Hx of post- depression Social History/Family History HIV/AIDS: No Sexually Transmitted Disease: No Alcohol Use: Denies Use Recreational Drug Use: No Smoking Cessation: Never smoker 2nd Hand Smoke Exposure: No Immunizations Hepatitis A: No Hepatitis B: No Tetanus Booster (TDap): Less than 5yrs (11/29/19) Date of Influenza Vaccine: Jul 07, 2018 Rubella: immune RPR/VDRL: Negative GBS Status: Negative HBsAG: Negative OB - Admission Exam Physical Exam Vitals: Vital Signs 5/28/20 20:02 Temp 36.8 Pulse 88 Resp 18 Pulse Ox 98 O2 Delivery Room Air HEENT: NCAT Abdomen: Non tender Extremities: Normal Cervical Dilatation: 6cm Effacement: 75% Station: -3 Membranes: Intact Heart Rate: 150's Accelerations: Accelerations Present Short Term Variability: Present Halfway Variability: Average (6-25) Contractions on Admission: 6-10 Minutes Apart Labs Laboratory Tests Test 02/08/20 00:20 Range/Units OB - Assessment/Plan/Diagnosis Assessment Assessment: active labor Admission Dx Active labor 39 weeks gestation GBS neg Blood type A+ RI Subclinical hyperthyroidism Anemia Admission Status: Inpatient Order (span 2 midnights) Reason for Inpatient Admission: Labor, delivery and course Plan Plan: Expectant Management (AROM done at time of exam with clear fluid return) FREDI CASTILLO MD February 08, 2020 01:03
[2020-02-08] MEDS: D5 LR IV SOLUTION 1,000 ML IV SCH ×2 (01:19→05:37)
[2020-02-08] MEDS ORDERED: CATHETER FLUSH 10 ML SYR IV SCH ×2 (06:00→14:00)
[2020-02-08] MEDS ORDERED: OXYTOCIN PRE-MIX DRIP 500 ML IV SCH (06:03)
--- NOTE | 2020-02-08 06:05 | NUR ---
Dr. Jara out at desk. Strip and last SVE reviewed. orders to start Pitocin going up by 2 every 30, and see if baby tolerates it.
--- NOTE | 2020-02-08 07:48 | OB Labor & Delivery Record ---
Vag Delivery Note Vag Delivery Note Date of Delivery: 02/08/20 Preoperative Diagnosis: Kirsty Bingham is a (34 /Para 8 / 6, Gestational Age (wks)39with 5 days Postoperative Diagnosis: Same Surgeon: FREDI CASTILLO Hot Dog Vendor: None Anesthesia: None Delivery Type: Findings: Viable male , apgars 9/9, weight 7#3 Lacerations: perineal abrasion Intact placenta with 3 vessel cord. No nuchal cord, body cord or shoulder dystocia Estimated Blood Loss: 250 ml Complications: None Condition: Stable Description of Procedure: The patient is a 34 year old female who presented in active labor. She was admitted and informed consent was obtained. Her labor course was remarkable for prolonged active phase. She progressed to complete dilatation and began to push. She was then set up for delivery. The 's head was delivered atraumatically in the SHWETHA position. The shoulders and remainder of the 's body were then delivered without difficulty. Upon delivery, the head was held below the level of the perineum and the mouth and nares were bulb suctioned. The cord was doubly clamped and cut and the infant was handed off to the pediatric staff. An intact placenta with 3-vessel cord delivered via Hazel and there was found to be minimal bleeding.~ Vigorous fundal massage was performed and the fundus was found to be firm. IV oxytocin was given. Examination of the vagina and perineum revealed a perineal abrasion not requiring repair. Following the delivery, sponge, instrument and needle counts were correct. Mom and baby were both in stable condition in the labor suite. Vitals - Labs Vital Signs - I&O Vital Signs Date Time Temp Pulse Resp B/P (MAP) Pulse Ox O2 Delivery O2 Flow Rate FiO2 02/08/20 06:35 36.2 95 18 112/58 (76) 98 Room Air 02/08/20 06:05 90 18 128/72 (90) 98 Room Air 02/08/20 05:35 36.3 103 18 126/77 (93) 100 Room Air 02/08/20 05:07 90 18 121/75 (90) 98 Room Air 02/08/20 04:36 87 18 116/68 (84) 98 Room Air 02/08/20 04:07 36.6 87 18 98/57 (71) 02/08/20 03:37 36.8 97 18 104/69 (81) 02/08/20 03:07 107 20 123/70 (87) Room Air 02/08/20 02:37 107 20 112/67 (82) Room Air 02/08/20 02:02 36.2 91 18 134/83 (100) 02/07/20 23:10 85 20 114/75 (88) 98 Room Air 02/07/20 21:02 84 20 113/69 (84) 98 Room Air 02/07/20 20:02 36.8 88 18 98 Room Air 02/07/20 20:00 36.8 88 18 99 Room Air 02/07/20 19:33 36.8 84 20 117/69 (85) 98 Room Air I & O 02/08/20 07:00 Intake Total 1000 ml Balance 1000 ml Labs Laboratory Tests 02/08/20 00:20: White Blood Count 12.4H, Red Blood Count 4.01L, Hemoglobin 11.4L, Hematocrit 35, Mean Corpuscular Volume 86, Mean Corpuscular Hemoglobin 28, Mean Corpuscular Hemoglobin Concent 33, Red Cell Distribution Width 15.1H, Platelet Count 239, Mean Platelet Volume 11.4H, Neutrophils (%) (Auto) 76H, Lymphocytes (%) (Auto) 17, Monocytes (%) (Auto) 6, Eosinophils (%) (Auto) 1, Basophils (%) (Auto) 0, Neutrophils # (Auto) 9.5H, Lymphocytes # (Auto) 2.1, Monocytes # (Auto) 0.7, Eosinophils # (Auto) 0.2, Basophils # (Auto) 0.0 FREDI CASTILLO MD February 08, 2020 07:48
[2020-02-08] MEDS ORDERED: OXYTOCIN PRE-MIX DRIP 500 ML IV ONE (07:49)
[2020-02-08] MEDS: PRENATAL VITAMIN 1 EA TAB PO SCH (08:00)
[2020-02-08] MEDS ORDERED: WITCH HAZEL(TUCKS) 40 EA JAR TOP PRN (08:00)
[2020-02-08] MEDS ORDERED: BENZOCAINE/MENTHOL (DERMOPLAST) 60 ML CAN TP PRN (08:00)
[2020-02-08] MEDS: FERROUS SULF 325 MG (IRON) TAB PO SCH (08:01)
[2020-02-08] MEDS: OXYTOCIN PRE-MIX DRIP 500 ML IV SCH ×2 (08:03→08:31)
[2020-02-08] MEDS: DOCUSATE SODIUM 100 MG (COLACE) CAP PO SCH ×2 (09:00→20:50)
--- NOTE | 2020-02-08 11:20 | NUR ---
FFu/-1 small amount od rubra.Pt up to BR voided large amount. Pt instructed on use of buffy bottle and v-pad. Pt demonstrated and verbalized understanding of instructions. Used phone internal medicine specialist. Pt ambulated without difficulty. Standby assist x 1. SL intact and no c/o. 1130 Pt to wheel chair and transferred to room 312. FOB transported baby via open crib. All personal items with pt. Pt to bed. Call light within reach. No concerns voiced at this time.
[2020-02-08] MEDS: IBUPROFEN 600 MG (MOTRIN) TAB PO SCH ×2 (11:38→18:40)
--- NOTE | 2020-02-08 12:45 | NUR ---
Pt resting quietly in room. No c/o at this time. FFU/-1.
--- NOTE | 2020-02-08 13:00 | NUR ---
received report from Declan Armando RN
--- NOTE | 2020-02-08 21:00 | NUR ---
Goggle translate used to answer questions. mother educated on feedings and shown proper hold technique.
[2020-02-09] VITALS: BP 100/62
[2020-02-09] MEDS: IBUPROFEN 600 MG (MOTRIN) TAB PO SCH ×2 (00:20→06:22)
--- NOTE | 2020-02-09 04:35 | NUR ---
Infant resting in mothers arms after successful feed. No concerns at this time.
[2020-02-09 04:36] VITALS: BP 94/56
[2020-02-09 06:01] LABS: BASOPHILS % (AUTO) 0 % (0-10); EOSINOPHILS # (AUTO) 0.2 10^3/uL (0.0-0.3); EOSINOPHILS % (AUTO) 2 % (0-10); HEMATOCRIT 32 % (35-52); HEMOGLOBIN 10.1 G/DL (11.5-16.0); LYMPHOCYTES # (AUTO) 2.1 X 10^3 (1.0-4.0); LYMPHOCYTES % (AUTO) 21 % (12-44); MEAN CORPUSCULAR HEMOGLOBIN 28 PG (25-34); MEAN CORPUSCULAR HGB CONC 32 G/DL (32-36); MEAN CORPUSCULAR VOLUME 87 FL (80-99); MEAN PLATELET VOLUME 10.9 FL (7.4-10.4); MONOCYTES # (AUTO) 0.7 X 10^3 (0.0-1.0); MONOCYTES % (AUTO) 7 % (0-12); NEUTROPHILS # (AUTO) 7.1 X 10^3 (1.8-7.8); NEUTROPHILS % (AUTO) 70 % (42-75); PLATELET COUNT 228 10^3/uL (130-400); RED CELL DISTRIBUTION WIDTH 15.3 % (10.0-14.5); WHITE BLOOD COUNT 10.1 10^3/uL (4.3-11.0)
--- NOTE | 2020-02-09 07:40 | Discharge Summary ---
Diagnosis/Chief Complaint Date of Admission February 07, 2020 at 19:34 Date of Discharge February 09, 2020 Admission Diagnosis Admission Diagnosis 1. Intrauterine at 39 weeks 5 days gestation Discharge Diagnosis 1. Intrauterine at 39 weeks 5 days gestation Chief Complaint/HPI Chief Complaint/HPI 34-year-old 8 who presented to labor and delivery at 39 weeks 5 days gestation in labor. She received her care through [facility] and this essentially was unremarkable. She did not desire epidural. Discharge Summary-OBS Procedures 1. Spontaneous vaginal delivery Discharge Physical Examination Allergies: Coded Allergies: No Known Drug Allergies (Unverified , 11/17/17) Vitals & I&Os Intake and Output 02/09/20 00:00 Intake Total 1500 ml Balance 1500 ml Vital Sign - Last 12Hours Date Time Temp Pulse Resp B/P (MAP) Pulse Ox O2 Delivery O2 Flow Rate FiO2 02/09/20 04:36 36.8 75 18 94/56 (69) 98 Room Air General Appearance: No Acute Distress Respiratory: Clear to Auscultation Cardiovascular: Regular Rate Abdominal: Soft (With uterus firm) Hospital Course Was the Problem List Reviewed?: Yes Following delivery patient underwent routine care orders. She had no complications during the remainder of hospital stay. She tolerated regular diet and was noted to be ambulatory. She complained of no leg pain or shortness of breath. Her hemoglobin on admission February 07 was 11.4 and this was compared to day after her hemoglobin on February 08 of 10.1. Patient was felt ready for dismissal late morning of February 08 with all questions answered. She will follow- up with Dr. Jara in 6 weeks. Labs Laboratory Tests 02/09/20 05:38: White Blood Count 10.1, Red Blood Count 3.62L, Hemoglobin 10.1L, Hematocrit 32L, Mean Corpuscular Volume 87, Mean Corpuscular Hemoglobin 28, Mean Corpuscular Hemoglobin Concent 32, Red Cell Distribution Width 15.3H, Platelet Count 228, Mean Platelet Volume 10.9H, Neutrophils (%) (Auto) 70, Lymphocytes (%) (Auto) 21, Monocytes (%) (Auto) 7, Eosinophils (%) (Auto) 2, Basophils (%) (Auto) 0, Neutrophils # (Auto) 7.1, Lymphocytes # (Auto) 2.1, Monocytes # (Auto) 0.7, Eosinophils # (Auto) 0.2, Basophils # (Auto) 0.0 Discharge Instructions to patient/family Please see electronic discharge instructions given to patient. Discharge Medications Reviewed and agree with Discharge Medication list on patient's Discharge Instruction sheet Clinical Quality Measures DVT/VTE Risk/Contraindication: Risk Factor Score Per Nursin RFS Level Per Nursing on Admit: 1=Low/No VTE PPX STU WILCOX MD February 09, 2020 07:40
--- NOTE | 2020-02-09 07:42 | Discharge Inst-Women's Service ---
Discharge Inst-Women's Serv Depart Medication/Instructions New, Converted or Re-Newed RX: Other Instructions May take ibuprofen 200 mg tablet 23 every 6 hours as needed for cramps. Problems Reviewed?: Yes Consults/Follow Up Additional Follow Up: Yes (Dr. Jara in 6 weeks) Activity Activity: Activity as Tolerated Driving Instructions: No Driving for 1 Week Nothing Inside Vagina: No Bloomer (For 6 weeks) Diet Discharge Diet: Regular Diet Return to The Hospital For: As below Symptoms to Report to : Bleeding Excessive, Fever Over 101 Degrees F, Vaginal Discharge Foul For Any Problems or Questions: Contact Your Physician STU WILCOX MD February 09, 2020 07:42
[2020-02-09 08:20] VITALS: BP 106/66
[2020-02-09] MEDS: FERROUS SULF 325 MG (IRON) TAB PO SCH (08:23)
[2020-02-09] MEDS: PRENATAL VITAMIN 1 EA TAB PO SCH (08:23)
[2020-02-09] MEDS: DOCUSATE SODIUM 100 MG (COLACE) CAP PO SCH (08:23)
--- NOTE | 2020-02-09 12:38 | NUR ---
Home instructions given per translation line and Maltese written instructions given. Pt verbalized understanding.
[2020-02-09] MEDS ORDERED: TETANUS,DIPTH,PERTUSS P/F (BOOSTRIX) 0.5 ML VIAL IM ONE (13:00)
--- NOTE | 2020-02-09 13:30 | NUR ---
Tdap given in rt deltoid. Croatian VIS given. See MAR
--- NOTE | 2020-02-09 15:20 | NUR ---
DIscharged to home - pt ambulatory, baby in car seat, accompanied by father of baby and Rogerio Moura RN
== END 2020-02-09 15:20 | disposition home or self-care (01) | DRG 807 ==
LOC: WSo 19:04 → LDRP 19:06 → WSo 19:34 → LDRP 02-08 11:30
PROVIDERS: ADMIT Family Medicine; ATTEND Family Medicine
PROC: 10E0XZZ Delivery of Products of Conception, External Approach (ICD-10-PCS; principal; 2020-02-08)
DX: O99.284 Endocrine, nutritional and metabolic diseases complicating childbirth (principal); Z37.0 Single live birth; E05.90 Thyrotoxicosis, unspecified without thyrotoxic crisis or storm; O71.82 Other specified trauma to perineum and vulva; O63.1 Prolonged second stage (of labor); O99.02 Anemia complicating childbirth; D64.9 Anemia, unspecified; Z23 Encounter for immunization; Z3A.39 39 weeks gestation of pregnancy
CPT/HCPCS: 36415; 85025; 86850; 86900; 86901; 90715; 99212

== ENCOUNTER → 2021-02-23 | Outpatient (CLI) | payer SELFPAY ==
[~2021-02-23] MED LIST changes: +FERR325T18 PO; +PREN1TAB79 PO
--- NOTE | 2021-02-23 12:30 | Diagnostic Imaging Report ---
PROCEDURE: MR imaging of the brain without contrast. TECHNIQUE: Multiplanar, multisequence MR imaging of the brain was performed without contrast. INDICATION: Intractable migraine. COMPARISON: None. FINDINGS: Single nonspecific subcortical T2 hyperintensity in the right insula is of questionable clinical significance. No other abnormal intracranial signal. Normal morphology including the major midline structures, sella, posterior fossa and cerebellar pontine angle. No restricted water diffusion. No hemosiderin deposition. No hydrocephalus or extra-axial fluid collections. Normal intracranial flow voids. The orbits are negative on this nondedicated exam. Mucosal thickening and air-fluid level in the right maxillary sinus. There is also mucosal thickening in the right frontal, ethmoid and sphenoid sinus. Mastoids are clear. Normal bone marrow signal. IMPRESSION: 1. No acute intracranial MRI findings. 2. Small nonspecific subcortical T2 hyperintensity in the right insula is of questionable clinical significance. MRI of the brain is otherwise negative. 3. Mucosal thickening and air-fluid level in the right maxillary sinus would be compatible with acute sinusitis. There is also mucosal thickening in the right frontal, ethmoid and sphenoid sinuses. Dictated by: Dictated on workstation # [id number]
== END ==
LOC: RAD 11:06
PROVIDERS: ATTEND Family Medicine
DX: J34.89 Other specified disorders of nose and nasal sinuses (principal); G43.019 Migraine without aura, intractable, without status migrainosus
CPT/HCPCS: 70551

== ENCOUNTER 2021-06-19 16:31 | Inpatient (IN) | payer SELFPAY ==
[~2021-06-19] VITALS: Ht 156 cm; Wt 81.7 kg
[2021-06-19] VITALS (17 sets, daily range): BP systolic 107–134; BP diastolic 57–90
[2021-06-19] MEDS ORDERED: D5 LR IV SOLUTION 1,000 ML IV ONE (17:08)
[2021-06-19] MEDS ORDERED: D5 LR IV SOLUTION 1,000 ML IV SCH (17:15)
[2021-06-19] MEDS ORDERED: MINERAL OIL CONCENTRATE 99.9% 15 ML UDC TOP SCH (17:15)
[2021-06-19 17:36] LABS: BASOPHILS % (AUTO) 0 % (0-10); EOSINOPHILS # (AUTO) 0.1 10^3/uL (0.0-0.3); EOSINOPHILS % (AUTO) 1 % (0-10); HEMATOCRIT 34 % (35-52); HEMOGLOBIN 11.2 g/dL (11.5-16.0); LYMPHOCYTES # (AUTO) 1.2 10^3/uL (1.0-4.0); LYMPHOCYTES % (AUTO) 13 % (12-44); MEAN CORPUSCULAR HEMOGLOBIN 28 pg (25-34); MEAN CORPUSCULAR HGB CONC 33 g/dL (32-36); MEAN CORPUSCULAR VOLUME 86 fL (80-99); MEAN PLATELET VOLUME 11.2 fL (9.0-12.2); MONOCYTES # (AUTO) 0.6 10^3/uL (0.0-1.0); MONOCYTES % (AUTO) 6 % (0-12); NEUTROPHILS # (AUTO) 7.9 10^3/uL (1.8-7.8); NEUTROPHILS % (AUTO) 80 % (42-75); PLATELET COUNT 236 10^3/uL (130-400); WHITE BLOOD COUNT 9.8 10^3/uL (4.3-11.0)
[2021-06-19 17:36] LABS: BILIRUBIN,URINE NEGATIVE (NEGATIVE); CLARITY,URINE CLEAR; COLOR,URINE YELLOW; GLUCOSE, URINE (UA) NEGATIVE (NEGATIVE); KETONES,URINE NEGATIVE (NEGATIVE); LEUKOCYTE ESTERASE ,URINE 3+ (NEGATIVE); NITRITE,URINE NEGATIVE (NEGATIVE); PROTEIN,URINE NEGATIVE (NEGATIVE)
--- NOTE | 2021-06-19 17:36 | History & Physical-OB ---
OB - Chief Complaint & HPI Date/Time Date of Admission: Date of Admission: Jun 19, 2021 at 16:32 Date seen by a Provider: Jun 19, 2021 Time Seen by a Provider: 17:15 Chief Complaint/History OB-Reason for Admission/Chief: Onset of Labor Hx : 9 Hx Para: 7117 Expected Date of Delivery: Jun 12, 2021 Gestational Age in Weeks: 41 Gestational Age in Days: 0 Other reason for admission: Postdates, presented to office with regular though widely spaced contractions and found to be 5-6 cm dilated with bulging bag, sent to hospital. History of Labs A+, antibody neg, RI. HIV/HepB/RPR NR. Glucola neg. GBS neg. Allergies and Home Medications Allergies Coded Allergies: No Known Drug Allergies (Unverified , 11/17/17) Patient Home Medication List Home Medication List Reviewed: Yes Vit W-Ca,Fe,FA(<1 mg) ( Vitamins) 1 Each Tablet, 1 EACH PO DAILY, (Reported) Entered as Reported by: FREDI CASTILLO on 02/08/20 0102 OB - History Hx of Present Care: Yes Ultrasounds: Normal mid trimester US Obstetrical Complications: None Medical Complications: None Information Induced Hypertension: No Maternal Gestational Diabetes: No Hemorrhage: No Obstetrical History Hx : 9 Hx Para: 7 Hx # Term Pregnancies: 6 Hx # Pregnancies: 1 Number of Living Children: 7 Hx Termination: No Hx Total # of Abortions (Spona: 1 Hx Multiple Gestation: No Hx Ectopic : No Hx Stillbirth: No Hx Complication: No Hx Induced Hypertens: No Hx Maternal Gestational Diabet: No Hx Hemorrhage: No Delivery History Hx Dystocia: No Hx Forceps Assisted Delivery: No Hx Vacuum Extraction Assisted: No Hx Placenta Abnormality: No Hx Distress: No Hx Large For Gestational Age I: No Hx Small for Gestational Age I: No Hx Section: No Hx Vaginal Delivery Post C-Sec: No Hx Blood Disorders: No Adverse Rxn to Tranfusion: No Patient Past Medical History PMHx: Subclinical hyperthyroidism Hx of post- depression Social History/Family History Alcohol Use: Denies Use Recreational Drug Use: No Smoking Cessation: Never smoker 2nd Hand Smoke Exposure: No Immunizations Hepatitis A: Yes Hepatitis B: Yes Tetanus Booster (TDap): Less than 5yrs (03/31/21) Rubella: immune RPR/VDRL: Negative GBS Status: Negative HBsAG: Negative OB - Admission Exam Physical Exam HEENT: NCAT Abdomen: Gravid Extremities: Normal Cervical Dilatation: 5cm Effacement: Other (80%) Station: -3 Membranes: Intact (AROM at time of exam) Amniotic Fluid: Clear Heart Rate: 140's Accelerations: Accelerations Present Decelerations: Early Decelerations Short Term Variability: Present Alf Variability: Average (6-25) Contractions on Admission: >10 Minutes Apart OB - Assessment/Plan/Diagnosis Assessment Admission Dx Term intrauterine at 41 weeks gestation Advanced cervical dilation with regular contractions/active labor GBS neg Admission Status: Inpatient Order (span 2 midnights) Reason for Inpatient Admission: Labor, delivery and course Plan Plan: Expectant Management (AROM done at time of exam) FREDI CASTILLO MD Jun 19, 2021 17:36
[2021-06-19] MEDS ORDERED: OXYTOCIN PRE-MIX DRIP 500 ML IV SCH ×2 (18:00→21:00)
[2021-06-19 18:24] LABS: BACTERIA,URINE MODERATE /HPF
--- NOTE | 2021-06-19 20:52 | OB Labor & Delivery Record ---
Vag Delivery Note Vag Delivery Note Date of Delivery: 06/19/21 Preoperative Diagnosis: Kirsty Bingham is a (35 /Para 9 / 7, Gestational Age (wks)41with 0 days Postoperative Diagnosis: Same Surgeon: FREDI CASTILLO Construction Project Mgr: Lexii Scott, OMS3 Anesthesia: None Delivery Type: Findings: [] Viable female , apgars 9/9, weight pending Lacerations: first degree perineal Intact placenta with 3 vessel cord. No nuchal cord, body cord or shoulder dystocia Estimated Blood Loss: 350 ml Complications: None Condition: Stable Description of Procedure: The patient is a 35 year old female who presented in active labor. She was admitted and informed consent was obtained. Her labor course was remarkable for recurrent early decelerations. She had slow progression from 5 to 7 cm, but then precipitously delivered. I was on my way to bedside at 8:25, received notice at 8:29 that she was having increased pain, and at time of arrival at 8:34, had just delivered spontaneously and was vigorous on maternal abdomen, and the cord had not yet been clamped. The cord was doubly clamped and cut and the infant was handed off to the pediatric staff. An intact placenta with 3-vessel cord delivered via Hazel and there was found to be minimal bleeding.~ Vigorous fundal massage was performed and the fundus was found to be firm. IV oxytocin was given. Examination of the vagina and perineum revealed a first degree perineal laceration not requiring repair. Following the delivery, sponge, instrument and needle counts were correct. Mom and baby were both in stable condition in the labor suite. Vitals - Labs Vital Signs - I&O Vital Signs Date Time Temp Pulse Resp B/P (MAP) Pulse Ox O2 Delivery O2 Flow Rate FiO2 06/19/21 19:00 78 18 120/78 (92) Room Air 06/19/21 18:45 81 18 119/81 (94) Room Air 06/19/21 18:30 85 18 120/79 (93) Room Air 06/19/21 18:15 83 18 119/77 (91) Room Air 06/19/21 16:50 36.4 85 18 121/71 (88) 98 Room Air 06/19/21 16:50 36.4 85 18 98 Room Air Labs Laboratory Tests 06/19/21 17:00: Urine Color YELLOW, Urine Clarity CLEAR, Urine pH 7.0, Urine Specific [place] 1.015L, Urine Protein NEGATIVE, Urine Glucose (UA) NEGATIVE, Urine Ketones NEGATIVE, Urine Nitrite NEGATIVE, Urine Bilirubin NEGATIVE, Urine Urobilinogen 0.2, Urine Leukocyte Esterase 3+H, Urine RBC (Auto) 3+H, Urine RBC 2-5H, Urine WBC 5-10H, Urine Crystals NONE, Urine Bacteria MODERATEH, Urine Casts NONE, Urine Mucus NEGATIVE, Urine Culture Indicated YES 06/19/21 17:14: White Blood Count 9.8, Red Blood Count 3.94, Hemoglobin 11.2L, Hematocrit 34L, Mean Corpuscular Volume 86, Mean Corpuscular Hemoglobin 28, Mean Corpuscular Hemoglobin Concent 33, Red Cell Distribution Width 15.2H, Platelet Count 236, Mean Platelet Volume 11.2, Immature Granulocyte % (Auto) 1, Neutrophils (%) (Auto) 80H, Lymphocytes (%) (Auto) 13, Monocytes (%) (Auto) 6, Eosinophils (%) (Auto) 1, Basophils (%) (Auto) 0, Neutrophils # (Auto) 7.9H, Lymphocytes # (Auto) 1.2, Monocytes # (Auto) 0.6, Eosinophils # (Auto) 0.1, Basophils # (Auto) 0.0, Immature Granulocyte # (Auto) 0.1 FREDI CASTILLO MD Jun 19, 2021 20:52
[2021-06-19] MEDS ORDERED: BENZOCAINE/MENTHOL (DERMOPLAST) 56 ML CAN TP PRN (21:00)
[2021-06-19] MEDS ORDERED: WITCH HAZEL(TUCKS) 40 EA JAR TOP PRN (21:00)
[2021-06-19] MEDS ORDERED: BENZOCAINE/MENTHOL (DERMOPLAST) 56 ML CAN TP ONE (21:07)
[2021-06-19] MEDS ORDERED: ACETAMINOPHEN 500 MG TAB (TYLENOL) ONE (21:07)
[2021-06-19] MEDS ORDERED: OXYTOCIN PRE-MIX DRIP 500 ML IV ONE (21:08)
[2021-06-19] MEDS: ACETAMINOPHEN 500 MG TAB (TYLENOL) PO PRN (21:11)
[2021-06-19] MEDS: DOCUSATE SODIUM 100 MG (COLACE) CAP PO SCH (21:19)
[2021-06-19] MEDS ORDERED: CATHETER FLUSH 10 ML SYR IV SCH ×2 (22:00)
[2021-06-19] MEDS: IBUPROFEN 600 MG (MOTRIN) TAB PO SCH (23:21)
[2021-06-20 04:30] VITALS: BP 116/59
[2021-06-20] MEDS: IBUPROFEN 600 MG (MOTRIN) TAB PO SCH ×3 (06:18→18:12)
[2021-06-20] MEDS: ACETAMINOPHEN 500 MG TAB (TYLENOL) PO PRN (06:18)
[2021-06-20 06:46] LABS: BASOPHILS % (AUTO) 0 % (0-10); EOSINOPHILS # (AUTO) 0.1 10^3/uL (0.0-0.3); EOSINOPHILS % (AUTO) 0 % (0-10); HEMATOCRIT 31 % (35-52); HEMOGLOBIN 9.9 g/dL (11.5-16.0); LYMPHOCYTES # (AUTO) 1.9 10^3/uL (1.0-4.0); LYMPHOCYTES % (AUTO) 15 % (12-44); MEAN CORPUSCULAR HEMOGLOBIN 28 pg (25-34); MEAN CORPUSCULAR HGB CONC 32 g/dL (32-36); MEAN CORPUSCULAR VOLUME 87 fL (80-99); MEAN PLATELET VOLUME 11.5 fL (9.0-12.2); MONOCYTES # (AUTO) 0.8 10^3/uL (0.0-1.0); MONOCYTES % (AUTO) 6 % (0-12); NEUTROPHILS % (AUTO) 78 % (42-75); PLATELET COUNT 215 10^3/uL (130-400); WHITE BLOOD COUNT 12.8 10^3/uL (4.3-11.0)
[2021-06-20 09:31] VITALS: BP 117/67
[2021-06-20] MEDS: DOCUSATE SODIUM 100 MG (COLACE) CAP PO SCH ×2 (09:35→21:33)
[2021-06-20 11:58] VITALS: BP 111/66
--- NOTE | 2021-06-20 12:19 | Progress Note ---
JOSE TAPIA 06/20/21 1218: Subjective Date Seen by a Provider: Jun 20, 2021 Time Seen by a Provider: 11:00 Subjective/Events-last exam S: Patient was admitted 06/19/2021 due to signs of active labor. Was seen in clinic earlier that day, and was dilated 5cm with intermittent contractions. She was instructed to go to the hospital where her membranes were ruptured artificially. She is G9 now P7118, A+, RI, GBS negative. She delivered baby girl via at 20:34. She was stable after delivery with no signs of hemorrhage or infection. This morning she was seen at 11:00. She denies swelling, chest pain, or shortness of breath. Denies any bleeding. She is breast feeding. Reports no concerns at this time. Discussed that if she and baby continue to do well they will be discharged tomorrow, 06/21/2021. O: Most recent vitals signs prior to exam: Temp 36.3 L temporal, HR 88, RR 16, BP 116/59(78) R arm, SpO2 98 on room air. Physical exam: General: Calm, resting, no signs of distress CV: heart regular rate and rhythm, no murmurs, gallops, or rubs. Lungs: CTAB without wheezes, rales, or rhonchi ABD: uterus palpable EXT: no peripheral edema of lower extermity Neuro: Alert and oriented Medication list: Benzocaine/menthol (dermoplast spray), witch stanley/glycerin Tucks pads, Oxytocin/Sodium chloride 500ml/999 mls/hr IV 2 bags for total of 1000ml. Acetaminophen 500mg and 1000mg PO, Docusate 100mg PO. A/P: 1. Post- mother: continue to monitor for bleeding, shortness of breath, edema, chest pain, fever, or change in vital signs to unstable condition. 2. Breast feeding: continue to monitor for concerns or complications, provide supplemental Similac Sensitive formula if needed. Provide breast pump and consultation if needed. 3. Hypotension: continue to monitor blood pressure 4. Disposition: Plans for discharge tomorrow 06/21/2021 if no complications arise Review of Systems Pulmonary: No Dyspnea, No Pleuritic Chest Pain, No Other (Shortness of breath) Cardiovascular: No: Chest Pain, Edema Objective Exam Last Set of Vital Signs Vital Signs Date Time Temp Pulse Resp B/P (MAP) Pulse Ox O2 Delivery O2 Flow Rate FiO2 06/20/21 11:58 36.1 79 16 111/66 (81) 97 Room Air Capillary Refill : Less Than 3 Seconds I&O Intake and Output 06/20/21 00:00 Intake Total 2000 ml Balance 2000 ml Intake IV Total 2000 ml General: Alert, Cooperative, No Acute Distress HEENT: Atraumatic Lungs: Clear to Auscultation, Normal Air Movement Heart: Regular Rate, Normal S1, Normal S2, No Murmurs Abdomen: Soft, Other (Uterus palpable) Extremities: No Edema, No Tenderness/Swelling Neuro: Normal Speech Psych/Mental Status: Mental Status NL, Mood NL Results Lab Laboratory Tests 06/19/21 17:00: Urine Color YELLOW, Urine Clarity CLEAR, Urine pH 7.0, Urine Specific [place] 1.015L, Urine Protein NEGATIVE, Urine Glucose (UA) NEGATIVE, Urine Ketones NEGATIVE, Urine Nitrite NEGATIVE, Urine Bilirubin NEGATIVE, Urine Urobilinogen 0.2, Urine Leukocyte Esterase 3+H, Urine RBC (Auto) 3+H, Urine RBC 2-5H, Urine WBC 5-10H, Urine Crystals NONE, Urine Bacteria MODERATEH, Urine Casts NONE, Urine Mucus NEGATIVE, Urine Culture Indicated YES 06/19/21 17:14: White Blood Count 9.8, Red Blood Count 3.94, Hemoglobin 11.2L, Hematocrit 34L, Mean Corpuscular Volume 86, Mean Corpuscular Hemoglobin 28, Mean Corpuscular Hemoglobin Concent 33, Red Cell Distribution Width 15.2H, Platelet Count 236, Mean Platelet Volume 11.2, Immature Granulocyte % (Auto) 1, Neutrophils (%) (Auto) 80H, Lymphocytes (%) (Auto) 13, Monocytes (%) (Auto) 6, Eosinophils (%) (Auto) 1, Basophils (%) (Auto) 0, Neutrophils # (Auto) 7.9H, Lymphocytes # (Auto) 1.2, Monocytes # (Auto) 0.6, Eosinophils # (Auto) 0.1, Basophils # (Auto) 0.0, Immature Granulocyte # (Auto) 0.1 06/20/21 06:27: White Blood Count 12.8H, Red Blood Count 3.53L, Hemoglobin 9.9L, Hematocrit 31L, Mean Corpuscular Volume 87, Mean Corpuscular Hemoglobin 28, Mean Corpuscular Hemoglobin Concent 32, Red Cell Distribution Width 15.3H, Platelet Count 215, Mean Platelet Volume 11.5, Immature Granulocyte % (Auto) 1, Neutrophils (%) (Auto) 78H, Lymphocytes (%) (Auto) 15, Monocytes (%) (Auto) 6, Eosinophils (%) (Auto) 0, Basophils (%) (Auto) 0, Neutrophils # (Auto) 10.0H, Lymphocytes # (Auto) 1.9, Monocytes # (Auto) 0.8, Eosinophils # (Auto) 0.1, Basophils # (Auto) 0.0, Immature Granulocyte # (Auto) 0.1 Assessment/Plan Assessment/Plan Assess & Plan/Chief Complaint A/P: 1. Post- mother: continue to monitor for bleeding, shortness of breath, edema, chest pain, fever, or change in vital signs to unstable condition. 2. Breast feeding: continue to monitor for concerns or complications, provide supplemental Similac Sensitive formula if needed. Provide breast pump and consultation if needed. 3. Hypotension: continue to monitor blood pressure 4. Disposition: Plans for discharge tomorrow 06/21/2021 if no complications arise Diagnosis/Problems Diagnosis/Problems (1) () Onset Date: ~ 06/19/2021 Assessment & Plan: No concerns at this time, supplement with Similac sensitive as needed. Provide breast pump and consultation as needed. Clinical Quality Measures Admission Status Admission Dx Active labor Admission Status: Inpatient Order (span 2 midnights) Reason for Inpatient Admission: Active labor SABRINA JARA MD 06/20/21 1801: Supervisory-Addendum Brief Verification & Attestation Participated in pt care: history, MDM, physical Personally performed: exam, history, MDM Care discussed with: Medical Student Procedures: n/a Verification and Attestation of Medical Student E/M Service A medical student performed and documented this service in my presence. I reviewed and verified all information documented by the medical student and made modifications to such information, when appropriate. I personally performed the physical exam and medical decision making. Sabrina Jara, Jun 20, 2021,18:01 JOSE TAPIA Jun 20, 2021 12:18 SABRINA JARA MD Jun 20, 2021 18:01
[2021-06-20 17:07] VITALS: BP 113/55
[2021-06-21 00:32] VITALS: BP 117/63
[2021-06-21] MEDS: IBUPROFEN 600 MG (MOTRIN) TAB PO SCH ×2 (00:32→05:51)
[2021-06-21 05:51] VITALS: BP 126/70
[2021-06-21] MEDS ORDERED: IBUP-844 PO (07:00)
[2021-06-21] MEDS ORDERED: FERR325T24 PO (07:00)
[2021-06-21] MEDS ORDERED: FERROUS SULF 325 MG (IRON) TAB PO SCH (07:00)
[2021-06-21 07:36] VITALS: BP 120/78
[2021-06-21] MEDS: DOCUSATE SODIUM 100 MG (COLACE) CAP PO SCH (07:40)
--- NOTE | 2021-06-21 09:44 | Discharge Summary ---
JOSE TAPIA 06/21/21 0936: Discharge Summary Hospital Course Problems Reviewed?: Yes Problems/Diagnosis: (1) (infant) Onset Date: ~ 06/19/2021 Assessment & Plan: Mother is bottle feeding at this time, discuss WIC services in out-patient setting if needed. Provide consultation in out-patient setting if requested. Hospital Course Date of Admission: Jun 19, 2021 at 16:32 Admission Diagnosis : Family Physician/Provider: Fredi Jara MD Date of Discharge: 06/21/21 Discharge Diagnosis: [Full-term delivery ] Hospital Course: [Admitted 06/19/21 after being seen in clinic earlier that day. She was dilated 5cm in clinic and was yoana every 30minutes. Admitted for signs of active labor and for possible augmentation. AROM upon admission and labor was augmented with pitocin. Baby was delivered that evening via , there were no complications throughout her labor and delivery. No anesthesia was used throughout labor and delivery, no perineal repairs needed. She started shortly after delivering. 06/20/21: Patient recovering well, in stable condition, however her blood pressure was reading a little low. Continued to monitor vital signs. Denied cramping/abdominal tenderness, swelling, shortness of breath, or chest pain. Reported mild bleeding. She started to supplement her breastmilk with similac sensitive formula, she thought that baby was not getting enough. Acetaminophen 1000mg and ibuprofen 600mg were given for pain control, Docusate 100mg was given to soften stool. 06/21/21: Patient continuing to recover well, in stable condition. Blood pressure within normal limits. Denied cramping/abdominal tenderness, swelling, shortness of breath, chills, aches, or chest pain. Reported mild bleeding and a sore throat with congestion that developed the day before. Acetaminophen 1000mg and ibuprofen 600mg for pain control, Docusate 100mg to soften stool. Testing for COVID and Flu prior to discharge if rapid tests are available; will test in out-patient setting if they are not. Bottle feeding with no concerns. Ready for discharge.] Labs and Pending Lab Test: Laboratory Tests 06/21/21 08:00: Influenza Type A (RT-PCR) Not Detected, Influenza Type B (RT-PCR) Not Detected, SARS-CoV-2 RNA (RT-PCR) Not Detected Microbiology 06/19/21 Urine Culture - Final, Complete Mixed Bacterial Megan Home Meds Active Ibu (Ibuprofen) 600 Mg Tablet 600 Mg PO Q6HR PRN Ferosul (Ferrous Sulfate) 325 Mg Tablet 325 Mg PO DAILY@0700 Reported Vitamins ( Vit W-Ca,Fe,FA(<1 mg)) 1 Each Tablet 1 Each PO DAILY Patient Discharge Instructions of full-term infant: Follow-up in out-patient setting later this week for well-child visit. Post- visit in out-patient setting in [address] Jara's office or hospital with questions or concerns. Continue acetaminophen 1000mg and ibuprofen 600mg for pain control as needed. Continue Docusate 100mg for stool softening as needed. If fever develops, abdominal pain, increase in bleeding, or foul-smelling discharge, contact Dr. Jara's office or hospital immediately. Activity: Activity as Tolerated Driving Instructions: You May Drive NO SMOKING: NO SMOKING Nothing Inside Vagina: No Douching, No [place], No Tampons Discharge Diet: No Restrictions Return to The Hospital For: Fever, abdominal pain, increase in bleeding, chest pain, shortness of breath, foul-smelling discharge, swelling Symptoms to Report to : Extremity Discoloration, Numbness/Tingling, Swelling Increased, Bleeding Excessive, Eyesight Changes, Pain Increased, Urine Color Change, Constipation(Persistant), Fever Over 101 Degrees F, Pain/Pressure in Chest, Urination Difficulty, Cough Up/Vomit Blood, Heart Beat Irreg/Pounding, Pain/Pressure in Jaw, Vaginal Bleeding Increase, Cramps in Feet or Legs, Lightheadedness, Pain/Pressure in Shoulder, Vaginal Discharge Foul, Diarrhea(Persistant), Memory Changes Suddenly, Questions/Concerns, Wt Gain Consecutive Days, Dizziness/Fainting, Nausea/Vomiting, Shortness of Breath, Weight Gain Over 2 Pounds For Any Problems or Questions: Contact Your Physician, Go to Emergency Room Infection Signs and Symptoms: Increased Redness, Foul Odor of Wound, Increased Drainage, Skin Itchy or Has a Rash, Increased Swelling, Temperature Above 101 F Bathing Instructions: Shower Discharge Physical Examination Allergies: Coded Allergies: No Known Drug Allergies (Unverified , 11/17/17) Vitals & I&Os Vital Signs Date Time Temp Pulse Resp B/P (MAP) Pulse Ox O2 Delivery O2 Flow Rate FiO2 06/21/21 07:36 36.2 95 16 120/78 (92) 98 Room Air General Appearance: No Apparent Distress Respiratory: Lungs Clear, Normal Breath Sounds, No Accessory Muscle Use, No Respiratory Distress Cardiovascular: Regular Rate, Rhythm, No Edema, No Gallop, No Murmur Gastrointestinal: Non Tender, Soft Extremity: No Pedal Edema Skin: Normal Color, Warm/Dry Neurologic/Psychiatric: Alert, No Motor/Sensory Deficits, Normal Mood/Affect Discharge Summary Date of Admission Jun 19, 2021 at 16:32 Date of Discharge Discharge Date: Jun 21, 2021 Discharge Diagnosis (1) (infant) Onset Date: ~ 06/19/2021 Assessment & Plan: No concerns at this time, supplement with Similac sensitive as needed. Provide breast pump and consultation as needed. FREDI JARA MD 06/21/212052: Discharge Summary Discharge Physical Examination Allergies: Coded Allergies: No Known Drug Allergies (Unverified , 11/17/17) Supervisory-Addendum Brief Verification & Attestation Participated in pt care: history, MDM, physical Personally performed: exam, history Care discussed with: Medical Student Procedures: n/a Verification and Attestation of Medical Student E/M Service I reviewed and verified all information documented by the medical student and made modifications to such information, when appropriate. I personally performed the physical exam and medical decision making. Flu A/B and Sars-CoV-2 neg. Fredi Jara Jun 21, 2021,20:52 JOSE TAPIA Jun 21, 2021 09:36 FREDI JARA MD Jun 21, 2021 20:53
[2021-06-21 12:15] VITALS: BP 120/78
== END 2021-06-21 12:15 | disposition home or self-care (01) | DRG 807 ==
LOC: WSo 16:31 → LDRP 16:32
PROVIDERS: ADMIT Family Medicine; ATTEND Family Medicine
PROC: 10E0XZZ Delivery of Products of Conception, External Approach (ICD-10-PCS; principal; 2021-06-20)
PROC: 10907ZC Drainage of Amniotic Fluid, Therapeutic from Products of Conception, Via Natural or Artificial Opening (ICD-10-PCS; 2021-06-20)
PROC: 0HQ9XZZ Repair Perineum Skin, External Approach (ICD-10-PCS; 2021-06-20)
DX: O48.0 Post-term pregnancy (principal); Z37.0 Single live birth; Z3A.41 41 weeks gestation of pregnancy; O70.0 First degree perineal laceration during delivery; O90.89 Other complications of the puerperium, not elsewhere classified; I95.9 Hypotension, unspecified; Z20.822 Contact with and (suspected) exposure to COVID-19; O99.284 Endocrine, nutritional and metabolic diseases complicating childbirth; E05.90 Thyrotoxicosis, unspecified without thyrotoxic crisis or storm
CPT/HCPCS: 36415; 81000; 85025; 86850; 86900; 86901; 87088; 87636

== ENCOUNTER 2023-02-01 06:00 | Inpatient (IN) | payer OTHER ==
[2023-02-01] VITALS (44 sets, daily range): BP systolic 102–130; BP diastolic 57–78
[~2023-02-01] VITALS: Ht 156 cm; Wt 81.0 kg
[~2023-02-01 06:00] MED LIST changes: +CYCL10TA25 PO; -CYCL10TA9 PO; +FERR325T24 PO
--- OUTSIDE RECORDS SUMMARY | 2023-02-01 06:06 | XMS REPORT ---
Author Author [facility] Address Unknown Phone Unavailable Care Team Providers Care Claim Manager Name Role Phone ANNA, FREDI Unavailable PROBLEMS Type Condition ICD9-CM Code [id number] Code Onset Dates Condition S tatus W/U Status Risk SNOMED Code Notes Problem Subclinical hyperthyroidism E05.90 confirmed 100603674 Problem Periodontitis K05.30 confirmed 225704 05 Problem Tension headache G44.209 confirmed 39 0186456 Problem Intractable migraine without aura and without st atus migrainosus G43.019 confirmed 638042035 Problem Missed period N92.6 confirmed 344451 00 Problem care in first trimester Z34.91 conf irm [id number] Problem care in third trimester Z34.93 conf irmed 714100952 Problem Hepatic steatosis K76.0 confirmed 19 7851758 Noted on [place] 01/2019 Problem Psychophysiological insomnia F51.04 confirme d 233160417 Problem Restless leg syndrome G25.81 confirmed 56533283 Problem BMI 30.0-30.9,adult Z68.30 confirmed 950750873 ALLERGIES No Known Allergies ENCOUNTERS from 1983 to 2023-01-07 Encounter Location Date Provider Diagnosis [facility] [address] [facility] [id number] [address] [address] January, FREDI CASTILLO care in sec ond trimester Z34.92 IMMUNIZATIONS Vaccine Route Administration Date Status PRIVATE TDAP (BOOSTRIX) IM Intramuscular Nov 01, 2017 Adminis tered PRIVATE TDAP (BOOSTRIX) IM Intramuscular Sep 25, 2018 Adminis tered PRIVATE TDAP (BOOSTRIX) IM Intramuscular November 29, [address] PRIVATE TDAP (BOOSTRIX) IM Intramuscular March 31, 2021 Adminis tered [facility] FUNDED FLULUVAL QUAD 0.5ML 6 MONTHS AND UP 2018 IM Int ramuscular Aug 28, 2019 Administered PRIVATE FLULAVAL QUAD 0.5ML (6 MO AND UP) 2018 IM Intramuscular Jul 07, 2018 Administered SOCIAL HISTORY Sex Assigned At : Social History Observation Description Sex Assigned At Unknown Alcohol Screen (Audit-C) Question Answer Notes Did you have a drink containing alcohol in the past year? No Points 0 Interpretation Negative Sexual History Question Answer Notes Had sex in the past 12 months (vaginal, oral, or anal)? Yes Have you ever had a Sexually transmitted disease? No with Men only Use protection? No PHQ2 Question Answer Notes In the last 2 weeks, how often have you had little interest or pleasure in doing things? Not at all In the last 2 weeks, how often have you been feeling down, depressed, or hopeless? Not at all Total PHQ2 Score 0 Tobacco use other than smoking: Question Answer Notes Are you an other tobacco user? No REASON FOR REFERRAL No Information VITAL SIGNS No information MEDICATIONS Medication SIG (Take, Route, Frequency, Duration) Notes Start Da te End Date Status 28-0.8 MG 1 tablet Orally Once a day Active PROCEDURES No Information RESULTS No Results REASON FOR VISIT U/S OB >14 weeks- Qian Nicole RT(R)(M)RDMS,RVT MEDICAL (GENERAL) HISTORY Type Description Date Medical History Anemic Medical History 3rd trimester / Due Surgical History No Surgical history information Hospitalization History Anemia 02/2014 Hospitalization History childbirthx8 Goals Section No Information Health Concerns No Information MEDICAL EQUIPMENT No Information MENTAL STATUS No Information FUNCTIONAL STATUS No Information ASSESSMENTS Encounter Date Diagnosis Assessment Notes Treatment Notes Treatm ent Clinical Notes January, care in second trimester (ICD-1 0 - Z34.92) PLAN OF TREATMENT Next Appt Details Provider Name:FREDI Mitali CASTILLO, 3-05-0 5 02:00:00 PM, [address] , [place], [address], MEDICATIONS ADMINISTERED Medication Instructions Date of Administration Dosage TUAN 275 MG/1.1ML (PT'S OWN) Jul, 2 75 TUAN 275 MG/1.1ML (PT'S OWN) Sep, 2 75 TUAN 275 MG/1.1ML (PT'S OWN) Oct, 2 75 TUAN 275 MG/1.1ML (PT'S OWN) Sep, 2 75 mg TUAN 275 MG/1.1ML (PT'S OWN) Jun, 2 75 TUAN 275 MG/1.1ML (PT'S OWN) Jun, 2 75 mg TORADOL 30 MG/2ML (KETOROLAC) Nov, 60 mg TUAN 275 MG/1.1ML (PT'S OWN) Aug, 2 75 TUAN 275 MG/1.1ML (PT'S OWN) Jul, 2 75 mg TUAN 275 MG/1.1ML (PT'S OWN) Jul, 2 75 TUAN 275 MG/1.1ML (PT'S OWN) Oct, 2 75 mg TUAN 275 MG/1.1ML (PT'S OWN) Aug, 2 75 ROCEPHIN 1 GM (IM) Nov,
--- OUTSIDE RECORDS SUMMARY | 2023-02-01 06:06 | XMS REPORT ---
Author Author [facility] Address Unknown Phone Unavailable Care Team Providers Care [facility] Attendant Name Role Phone ANNA FREDI Unavailable PROBLEMS Type Condition ICD9-CM Code [id number] Code Onset Dates Condition S tatus W/U Status Risk SNOMED Code Notes Problem Periodontitis K05.30 confirmed 847313 05 Problem Tension headache G44.209 confirmed 39 0283944 Problem Hepatic steatosis K76.0 confirmed 19 6624857 Noted on US 01/2019 Problem care in third trimester Z34.93 conf irmed 871324457 Problem care in first trimester Z34.91 conf irm 528778030 Problem Subclinical hyperthyroidism E05.90 confirmed 121585667 Problem Intrahepatic cholestasis K76.89 confirmed 5714795 Problem Missed period N92.6 confirmed 542090 00 Problem Psychophysiological insomnia F51.04 confirme d 478378052 Problem Restless leg syndrome G25.81 confirmed 79186004 Problem BMI 30.0-30.9,adult Z68.30 confirmed 686657518 Problem Intractable migraine without aura and without st atus migrainosus G43.019 confirmed [id number] ALLERGIES No Known Allergies ENCOUNTERS from 1983 to 2023-01-26 Encounter Location Date Provider Diagnosis [facility] [address] [facility] [id number] [address], [place] [address] Feb, FREDI CASTILLO IMMUNIZATIONS Vaccine Route Administration Date Status PRIVATE TDAP (BOOSTRIX) IM Intramuscular Sep 25, 2018 Adminis tered PRIVATE TDAP (BOOSTRIX) IM Intramuscular November 29, 2019 Adminis tered PRIVATE FLULAVAL QUAD 0.5ML (6 MO AND UP) 2019 IM Intramuscular Jul 07, 2018 Administered STATE FUNDED FLULUVAL QUAD 0.5ML 6 MONTHS AND UP 2018 IM Int ramuscular Aug 28, 2019 Administered PRIVATE TDAP (BOOSTRIX) IM Intramuscular March 31, 2021 Adminis tered PRIVATE TDAP (BOOSTRIX) IM Intramuscular Nov 01, 2017 Adminis tered SOCIAL HISTORY Sex Assigned At : Social [...] Notes Start Da te End Date Status Ursodiol 500 MG 1 tablet Orally TWICE A DAY for 30 days not taki ng yet January, Not-Taking 28-0.8 MG 1 tablet Orally Once a day Active PROCEDURES No Information RESULTS No Results REASON FOR VISIT headaches MEDICAL (GENERAL) HISTORY Type Description Date Medical History Anemic Medical History 3rd trimester / Due Surgical History No Surgical history information Hospitalization History Anemia 02/2014 Hospitalization History childbirthx8 Goals Section No Information Health Concerns No Information MEDICAL EQUIPMENT No Information MENTAL STATUS No Information FUNCTIONAL STATUS No Information ASSESSMENTS No Information PLAN OF TREATMENT Next Appt Details Provider Name:FREDI CASTILLO 2023-01-10 9 02:00:00 PM, [address] [place], [address], Provider Name:FREDI CASTILLO 2023-01-10 9 02:00:00 PM, [address] [place], [address], Provider Name:FREDI CASTILLO 2023-01-11 5 01:20:00 PM, [address], [place], [address], Provider Name:FREDI CASTILLO, 1 09:40:00 AM, [address], [place], [address], Provider Name:FREDI Mitali MORGANANNA, 8 01:40:00 PM, [address] [facility], [id number], [place], [address], Provider Name:RICHARD CRUZ, 01:40:00 PM, [address], [place], [address], MEDICATIONS ADMINISTERED Medication Instructions Date of Administration Dosage TUAN 275 MG/1.1ML (PT'S OWN) Oct, 2 75 TUAN 275 MG/1.1ML (PT'S OWN) Aug, 2 75 ROCEPHIN 1 GM (IM) Nov, TORADOL 30 MG/2ML (KETOROLAC) Nov, 60 mg TUAN 275 MG/1.1ML (PT'S OWN) Sep, 2 75 TUAN 275 MG/1.1ML (PT'S OWN) Jul, 2 75 TUAN 275 MG/1.1ML (PT'S OWN) Jun, 2 75 TUAN 275 MG/1.1ML (PT'S OWN) Aug, 2 75 TUAN 275 MG/1.1ML (PT'S OWN) Jul, 2 75 mg TUAN 275 MG/1.1ML (PT'S OWN) Sep, 2 75 mg TUAN 275 MG/1.1ML (PT'S OWN) Jul, 2 75 TUAN 275 MG/1.1ML (PT'S OWN) Oct, 2 75 mg TUAN 275 MG/1.1ML (PT'S OWN) Jun, 2 75 mg
--- OUTSIDE RECORDS SUMMARY | 2023-02-01 06:06 | XMS REPORT ---
Author Author [facility] Address Unknown Phone Unavailable Care Team Providers Care Wheel Installer Name Role Phone ANNAFREDI CHILDS Unavailable PROBLEMS Type Condition ICD9-CM Code IPG42-[id number] Code Onset Dates Condition S tatus W/U Status Risk SNOMED Code Notes Problem Subclinical hyperthyroidism E05.90 confirmed 611336468 Problem Periodontitis K05.30 confirmed 251109 05 Problem Tension headache G44.209 confirmed 39 4278203 Problem Intractable migraine without aura and without st atus migrainosus G43.019 confirmed 517387566 Problem Missed period N92.6 confirmed 628871 00 Problem care in first trimester Z34.91 conf irm 253062641 Problem care in third trimester Z34.93 conf irmed 963937750 Problem Hepatic steatosis K76.0 confirmed 19 5179517 Noted on [place] 01/2019 Problem Psychophysiological insomnia F51.04 confirme d 993930714 Problem Restless leg syndrome G25.81 confirmed 30499139 Problem BMI 30.0-30.9,adult Z68.30 confirmed 711361506 ALLERGIES No Known Allergies ENCOUNTERS from 1983 to 2022-12-12 Encounter Location Date Provider Diagnosis [facility] [address] [facility] [id number] [address] [address] Dec, FREDI CASTILLO 14 weeks gestation o f Z3A.14 IMMUNIZATIONS Vaccine Route Administration Date Status STATE FUNDED FLULUVAL QUAD 0.5ML 6 MONTHS AND UP 2019 IM Int ramuscular Aug 28, 2019 Administered PRIVATE FLULAVAL QUAD 0.5ML (6 MO AND UP) 2019 IM Intramuscular Jul 07, 2018 Administered PRIVATE TDAP (BOOSTRIX) IM Intramuscular March 31, 2021 Adminis tered PRIVATE TDAP (BOOSTRIX) IM Intramuscular November 29, 2019 Adminis tered PRIVATE TDAP (BOOSTRIX) IM Intramuscular [...] No Results REASON FOR VISIT U/S OB limited- Qian Niocle RT(R)(M)RDMS,RVT MEDICAL (GENERAL) HISTORY Type Description Date Medical History Anemic Medical History 3rd trimester / Due Surgical History No Surgical history information Hospitalization History Anemia 02/2014 Hospitalization History childbirthx8 Goals Section No Information Health Concerns No Information MEDICAL EQUIPMENT No Information MENTAL STATUS No Information FUNCTIONAL STATUS No Information ASSESSMENTS Encounter Date Diagnosis Assessment Notes Treatment Notes Treatm ent Clinical Notes Dec, 14 weeks gestation of (ICD-10 - Z3A.14) PLAN OF TREATMENT Next Appt Details Provider Name:RICHARD CRUZ, 08:40:00 AM, [address], [place], [address], MEDICATIONS ADMINISTERED Medication Instructions Date of Administration Dosage TUAN 275 MG/1.1ML (PT'S OWN) Jun, 2 75 TUAN 275 MG/1.1ML (PT'S OWN) Jul, 2 75 TUNA 275 MG/1.1ML (PT'S OWN) Jul, 2 75 TUAN 275 MG/1.1ML (PT'S OWN) Aug, 2 75 ROCEPHIN 1 GM (IM) Nov, TUAN 275 MG/1.1ML (PT'S OWN) Oct, 2 75 TUAN 275 MG/1.1ML (PT'S OWN) Oct, 2 75 mg TUAN 275 MG/1.1ML (PT'S OWN) Sep, 2 75 mg TUAN 275 MG/1.1ML (PT'S OWN) Sep, 2 75 TUAN 275 MG/1.1ML (PT'S OWN) Jun, 2 75 mg TUAN 275 MG/1.1ML (PT'S OWN) Jul, 2 75 mg TUAN 275 MG/1.1ML (PT'S OWN) Aug, 2 75 TORADOL 30 MG/2ML (KETOROLAC) Nov, 60 mg
--- OUTSIDE RECORDS SUMMARY | 2023-02-01 06:06 | XMS REPORT ---
Author Author [facility] Address Unknown Phone Unavailable Care Team Providers Care Clean Room Technician Name Role Phone ANNAFREDI CHILDS Unavailable PROBLEMS Type Condition ICD9-CM Code RXT44-MI Code Onset Dates Condition S tatus W/U Status Risk SNOMED Code Notes Problem Subclinical hyperthyroidism E05.90 confirmed 191043708 Problem Periodontitis K05.30 confirmed 788798 05 Problem Tension headache G44.209 confirmed 39 7628954 Problem Intractable migraine without aura and without st atus migrainosus G43.019 confirmed 314394968 Problem Missed period N92.6 confirmed 999065 00 Problem care in first trimester Z34.91 conf irm 624091248 Problem care in third trimester Z34.93 conf irmed 357080401 Problem Hepatic steatosis K76.0 confirmed 19 3152047 Noted on [place] 01/2019 Problem Psychophysiological insomnia F51.04 confirme d 858093493 Problem Restless leg syndrome G25.81 confirmed 82909090 Problem BMI 30.0-30.9,adult Z68.30 confirmed 623307571 ALLERGIES No Known Allergies ENCOUNTERS from 1983 to 2023-01-11 Encounter Location Date Provider Diagnosis [facility] [address] [facility] [id number] [address] [address] January, FREDI CASTILLO care in sec ond trimester Z34.92 IMMUNIZATIONS Vaccine Route Administration Date Status PRIVATE TDAP (BOOSTRIX) IM Intramuscular November 29, 2019 Adminis tered PRIVATE TDAP (BOOSTRIX) IM Intramuscular Sep 25, 2018 Adminis tered PRIVATE TDAP (BOOSTRIX) IM Intramuscular Nov 01, 2017 Adminis tered PRIVATE FLULAVAL QUAD 0.5ML (6 MO AND UP) 2018 IM Intramuscular Jul 07, 2018 Administered [facility] FUNDED FLULUVAL QUAD 0.5ML 6 MONTHS AND UP 2018 IM Int ramuscular Aug 28, 2019 Administered PRIVATE TDAP (BOOSTRIX) IM Intramuscular March 31, 2021 Adminis tered SOCIAL HISTORY Sex Assigned At [...] Information RESULTS No Results REASON FOR VISIT Ultrasound Order MEDICAL (GENERAL) HISTORY Type Description Date Medical [...] OF TREATMENT Next Appt Details Provider Name:FREDI CASTILLO, 3-05-0 5 02:00:00 PM, [address] , [place], [address], MEDICATIONS ADMINISTERED Medication Instructions Date of Administration Dosage TUAN 275 MG/1.1ML (PT'S OWN) Aug, 2 75 TUAN 275 MG/1.1ML (PT'S OWN) Jun, 2 75 mg TUAN 275 MG/1.1ML (PT'S OWN) Oct, 2 75 mg TUAN 275 MG/1.1ML (PT'S OWN) Oct, 2 75 TUAN 275 MG/1.1ML (PT'S OWN) Aug, 2 75 TUAN 275 MG/1.1ML (PT'S OWN) Jul, 2 75 mg TUAN 275 MG/1.1ML (PT'S OWN) Jun, 2 75 TUAN 275 MG/1.1ML (PT'S OWN) Sep, 2 75 TORADOL 30 MG/2ML (KETOROLAC) Nov, 60 mg TUAN 275 MG/1.1ML (PT'S OWN) Jul, 2 75 ROCEPHIN 1 GM (IM) Nov, TUAN 275 MG/1.1ML (PT'S OWN) Sep, 2 75 mg TUAN 275 MG/1.1ML (PT'S OWN) Jul, 2 75
--- OUTSIDE RECORDS SUMMARY | 2023-02-01 06:06 | XMS REPORT ---
Author Author [facility] Address Unknown Phone Unavailable Care Team Providers Care Spiral Machine Operator Name Role Phone ANNA, FREDI Unavailable PROBLEMS Type Condition ICD9-CM Code JNB56-LX Code Onset Dates Condition S tatus W/U Status Risk SNOMED Code Notes Problem Periodontitis K05.30 confirmed 626723 05 Problem Tension headache G44.209 confirmed 39 7335822 Problem Hepatic steatosis K76.0 confirmed 19 3039902 Noted on US 01/2019 Problem care in third trimester Z34.93 conf irmed 118813858 Problem care in first trimester Z34.91 conf irm 616876117 Problem Subclinical hyperthyroidism E05.90 confirmed 355933478 Problem Intrahepatic cholestasis K76.89 confirmed 2244696 Problem Missed period N92.6 confirmed 089556 00 Problem Psychophysiological insomnia F51.04 confirme d 540371182 Problem Restless leg syndrome G25.81 confirmed 40800747 Problem BMI 30.0-30.9,adult Z68.30 confirmed 780490042 Problem Intractable migraine without aura and without st atus migrainosus G43.019 confirmed 555550233 ALLERGIES No Known Allergies ENCOUNTERS from 1983 to 2023-01-24 Encounter Location Date Provider Diagnosis [facility] [address] [facility] [id number] [address] [address] Feb, FREDI CASTILLO care in sec ond trimester Z34.92 IMMUNIZATIONS Vaccine Route Administration Date Status STATE [...] No Results REASON FOR VISIT U/S OB follow up- Qian Nicole RT(R)(M)RDMS,RVT MEDICAL (GENERAL) HISTORY Type Description Date Medical History Anemic Medical History 3rd trimester / Due Surgical History No Surgical history information Hospitalization History Anemia 02/2014 Hospitalization History childbirthx8 Goals Section No Information Health Concerns No Information MEDICAL EQUIPMENT No Information MENTAL STATUS No Information FUNCTIONAL STATUS No Information ASSESSMENTS Encounter Date Diagnosis Assessment Notes Treatment Notes Treatm ent Clinical Notes Feb, care in second trimester (ICD-1 0 - Z34.92) PLAN OF TREATMENT Next Appt Details Provider Name:FREDI CASTILLO, 2022--1 9 02:00:00 PM, [address] , [place], [address], Provider Name:FREDI CASTILLO, 2023-01-10 9 02:00:00 PM, [address], [place], [address], Provider Name:FREDI CASTILLO, 2023-01-11 5 01:20:00 PM, [address], [place], [address], Provider Name:FREDI CASTILLO, 1 09:40:00 AM, [address], [place], [address], Provider Name:FREDI Mitali CASTILLO, 8 01:40:00 PM, [address] [facility], [id number], [place], [address], Provider Name:RICHARD CRUZ, 01:40:00 PM, [address] [facility], [place], [address], MEDICATIONS ADMINISTERED Medication Instructions Date of Administration [...]
--- OUTSIDE RECORDS SUMMARY | 2023-02-01 06:06 | XMS REPORT ---
Author Author [facility] Address Unknown Phone Unavailable Care Team Providers Care Gas Meter Reader Name Role Phone ANNA, FREDI Unavailable PROBLEMS Type Condition ICD9-CM Code ABP21-CJ Code Onset Dates Condition S tatus W/U Status Risk SNOMED Code Notes Problem Subclinical hyperthyroidism E05.90 confirmed 513930675 Problem Periodontitis K05.30 confirmed 135426 05 Problem Tension headache G44.209 confirmed 39 3480774 Problem Intractable migraine without aura and without st atus migrainosus G43.019 confirmed 202320921 Problem Missed period N92.6 confirmed 599620 00 Problem care in first trimester Z34.91 conf irm 224109446 Problem care in third trimester Z34.93 conf irmed [id number] Problem Hepatic steatosis K76.0 confirmed 19 1429258 Noted on [place] 01/2019 Problem Psychophysiological insomnia F51.04 confirme d [id number] Problem Restless leg syndrome G25.81 confirmed 79380101 Problem BMI 30.0-30.9,adult Z68.30 confirmed 524864802 ALLERGIES No Known Allergies ENCOUNTERS from 1983 to 2022-12-26 Encounter Location Date Provider Diagnosis [facility] [address] [facility] [id number] [address] [place] [address] January, FREDI CASTILLO IMMUNIZATIONS Vaccine Route Administration Date Status STATE [...] Information RESULTS No Results REASON FOR VISIT Case Management MEDICAL (GENERAL) HISTORY Type Description Date Medical History Anemic Medical History 3rd trimester / Due Surgical History No Surgical history information Hospitalization History Anemia 02/2014 Hospitalization History childbirthx8 Goals Section No Information Health Concerns No Information MEDICAL EQUIPMENT No Information MENTAL STATUS No Information FUNCTIONAL STATUS No Information ASSESSMENTS No Information PLAN OF TREATMENT Next Appt Details Provider Name:RICHARD TRINIDADROSCOE, 09:40:00 AM, [address] [facility], [place], [address], MEDICATIONS ADMINISTERED Medication Instructions Date of Administration [...]
--- OUTSIDE RECORDS SUMMARY | 2023-02-01 06:06 | XMS REPORT ---
Author Author [facility] Address Unknown Phone Unavailable Care Team Providers Care Crater And Packer Name Role Phone ANNA FREDI Unavailable PROBLEMS Type Condition ICD9-CM Code SPM43-CQ Code Onset Dates Condition S tatus W/U Status Risk SNOMED Code Notes Problem Subclinical hyperthyroidism E05.90 confirmed 137758110 Problem Periodontitis K05.30 confirmed 282081 05 Problem Tension headache G44.209 confirmed 39 7631771 Problem Intractable migraine without aura and without st atus migrainosus G43.019 confirmed 124105980 Problem Missed period N92.6 confirmed 376473 00 Problem care in first trimester Z34.91 conf irm 564237326 Problem care in third trimester Z34.93 conf irmed 938107161 Problem Hepatic steatosis K76.0 confirmed 19 9121911 Noted on [place] 01/2019 Problem Psychophysiological insomnia F51.04 confirme d 607020344 Problem Restless leg syndrome G25.81 confirmed 90406492 Problem BMI 30.0-30.9,adult Z68.30 confirmed 898075795 ALLERGIES No Known Allergies ENCOUNTERS from 1983 to 2022-12-02 Encounter Location Date Provider Diagnosis [facility] [place] [address] [facility] [id number] [place] [address] Dec, FREDI CASTILLO IMMUNIZATIONS Vaccine Route Administration Date Status PRIVATE TDAP (BOOSTRIX) IM Intramuscular March 31, 2021 Adminis tered PRIVATE TDAP (BOOSTRIX) IM Intramuscular Nov 01, 2017 Adminis tered PRIVATE FLULAVAL QUAD 0.5ML (6 MO AND UP) 2018 IM Intramuscular Jul 07, 2018 Administered STATE FUNDED FLULUVAL QUAD 0.5ML 6 MONTHS AND UP 2018 IM Int ramuscular Aug 28, 2019 Administered PRIVATE TDAP (BOOSTRIX) IM Intramuscular November 29, 2019 Adminis tered PRIVATE TDAP (BOOSTRIX) IM Intramuscular Sep 25, 2018 Adminis tered SOCIAL HISTORY Sex Assigned At [...] Information RESULTS No Results REASON FOR VISIT OB Flowsheet History MEDICAL (GENERAL) HISTORY Type Description Date Medical History Anemic Medical History 3rd trimester / Due Surgical History No know Surgical history Hospitalization History Anemia 02/2014 Hospitalization History childbirthx8 Goals Section No Information Health Concerns No Information MEDICAL EQUIPMENT No Information MENTAL STATUS No Information FUNCTIONAL STATUS No Information ASSESSMENTS No Information PLAN OF TREATMENT Next Appt Details Provider Name:RICHARD Lopez ANTHONY, 04:20:00 PM, [address] [facility], [place], [address], MEDICATIONS ADMINISTERED Medication Instructions Date of Administration [...] 275 MG/1.1ML (PT'S OWN) Jul, 2 75 TORADOL 30 MG/2ML (KETOROLAC) Nov, 60 mg TUAN 275 MG/1.1ML (PT'S OWN) Sep, 2 75 TUAN 275 MG/1.1ML (PT'S OWN) Oct, 2 75 TUAN 275 MG/1.1ML (PT'S OWN) Jul, 2 75 mg ROCEPHIN 1 GM (IM) Nov, TUAN 275 MG/1.1ML (PT'S OWN) Jun, 2 75
[2023-02-01] MEDS ORDERED: OXYTOCIN PRE-MIX DRIP 500 ML IV SCH (06:15)
[2023-02-01] MEDS ORDERED: MINERAL OIL 30 ML UDC TOP PRN (06:15)
--- NOTE | 2023-02-01 06:23 | History & Physical-OB ---
OB - Chief Complaint & HPI Date/Time Date of Admission: Date of Admission: February 01, 2023 at 06:03 Date seen by a Provider: February 01, 2023 Time Seen by a Provider: 07:59 Chief Complaint/History OB-Reason for Admission/Chief: Obstetrical Complication Hx : 10 Hx Para: 7118 Expected Date of Delivery: Feb 23, 2023 Gestational Age in Weeks: 36 Gestational Age in Days: 6 Indication for induction: other History of Labs A+, antibody neg, RI. HIV/HepB/HepC/RPR NR. GC/chlamydia NR. 1 hour glucola nml. Total serum bile acids 23.7 micromol/L. Other 37 yo at 36w6d presented to clinic with severe itching on palms and soles with no rash, found to have elevated serum total bile acids. Allergies and Home Medications Allergies Coded Allergies: No Known Drug Allergies (Unverified , 11/17/17) Patient Home Medication List Home Medication List Reviewed: Yes Ferrous Sulfate (Ferosul) 325 Mg Tablet, 325 MG PO DAILY@0700 Prescribed by: FREDI CASTILLO on 06/21/21 0700 Ibuprofen (Ibu) 600 Mg Tablet, 600 MG PO Q6HR PRN for PAIN-MODERATE (5-7) Prescribed by: FREDI CASTILLO on 06/21/21 0700 Vit W-Ca,Fe,FA(<1 mg) ( Vitamins) 1 Each Tablet, 1 EACH PO DAILY, (Reported) Entered as Reported by: FREDI CASTILLO on 02/08/20 0102 Ursodiol (Ursodiol) 500 Mg Tablet, 1 Twice Daily, (Reported) Entered as Reported by: LORY BRIGGS on 02/01/23 0738 Last Action: New Order OB - History Hx of Present Care: Yes Ultrasounds: Normal mid trimester US Obstetrical Complications: Other (intrahepatic cholestasis) Information Induced Hypertension: No Maternal Gestational Diabetes: No Hemorrhage: No Obstetrical History Hx : 10 Hx Para: 8 Hx # Term Pregnancies: 7 Hx # Pregnancies: 1 Number of Living Children: 8 Hx Termination: No Hx Multiple Gestation: No Hx Ectopic : No Hx Stillbirth: No Hx Complication: No Hx Induced Hypertens: No Hx Maternal Gestational Diabet: No Hx Hemorrhage: No Delivery History Hx Dystocia: No Hx Forceps Assisted Delivery: No Hx Vacuum Extraction Assisted: No Hx Placenta Abnormality: No Hx Distress: No Hx Large For Gestational Age I: No Hx Small for Gestational Age I: No Hx Section: No Hx Vaginal Delivery Post C-Sec: No Hx Blood Disorders: No Adverse Rxn to Tranfusion: No Patient Past Medical History PMHx: Subclinical hyperthyroidism Hx of post- depression Social History/Family History Alcohol Use: Denies Use Recreational Drug Use: No Smoking Cessation: Never smoker 2nd Hand Smoke Exposure: No Immunizations Hepatitis A: Yes Hepatitis B: Yes Tetanus Booster (TDap): Less than 5yrs Rubella: immune RPR/VDRL: Negative GBS Status: Unknown HBsAG: Negative OB - Admission Exam Physical Exam HEENT: NCAT Heart: Rhythm Normal Lungs: Clear Abdomen: Non tender Extremities: Normal Cervical Dilatation: 1cm Effacement: 50% Station: -3 Membranes: Intact Heart Rate: 130's Accelerations: Accelerations Present Decelerations: No Decelerations Short Term Variability: Present Soil Expert Variability: Average (6-25) Contractions on Admission: 6-10 Minutes Apart Marinelli Scoring Tool (Modified) Dilation (cm): 1-2cm (1) Effacement (%): 51-79% (2) Descent/Station: -3 (0) Cervix Consistency: Soft (2) Cervix Position: Anterior (2) Add 1 point for: Each previous vaginal delivery (1) (8) Marinelli Score: 15 OB - Assessment/Plan/Diagnosis Assessment Admission Dx Intrahepatic cholestasis in third trimester 36w6d gestation Grand multiparity Admission Status: Inpatient Order (span 2 midnights) Reason for Inpatient Admission: Labor, delivery and course Plan Plan: Induction Induction Method: per Pitocin Protocol Other Plan Intrahepatic cholestasis- had reassuring BPP last week, planned to induce at 37 weeks, inadvertently scheduled at 36w6d, based on LMP, her NIRANJAN was originally 6 rather than 6 (which is based on 8 week US), and we discussed risks of technically delivery although by only one day and given her LMP dating, may truly be full term. Given the risks of intrahepatic cholestasis at full term and most recent bile acid levels still pending, she would prefer to go ahead with induction today. GBS unknown- GBS swab done 5 days ago, results not yet available, will start ampicillin for now and follow up results. Grand multip- anticipate risk for pp hemorrhage Low TSH- with history of subclinical hyperthyroidism in previous , had low TSH at intake labs, and although T4 and T3 were ordered and in the lab orders, unfortunately they were never sent by lab in spite of multiple labs being drawn after that time. Will repeat TSH now. FREDI CASTILLO MD February 01, 2023 06:23
[2023-02-01] MEDS ORDERED: AMPICILLIN FOR IV USE 2,000 MG in NS (IVPB) 50 ML IV SCH (06:47)
[2023-02-01 06:50] LABS: BILIRUBIN,URINE NEGATIVE (NEGATIVE); CLARITY,URINE SL CLOUDY; COLOR,URINE YELLOW; GLUCOSE, URINE (UA) NEGATIVE (NEGATIVE); KETONES,URINE NEGATIVE (NEGATIVE); LEUKOCYTE ESTERASE ,URINE NEGATIVE (NEGATIVE); NITRITE,URINE NEGATIVE (NEGATIVE); PROTEIN,URINE NEGATIVE (NEGATIVE)
[2023-02-01 06:52] LABS: BASOPHILS % (AUTO) 0 % (0-10); EOSINOPHILS # (AUTO) 0.2 10^3/uL (0.0-0.3); EOSINOPHILS % (AUTO) 2 % (0-10); HEMATOCRIT 34 % (35-52); HEMOGLOBIN 11.4 g/dL (11.5-16.0); LYMPHOCYTES # (AUTO) 1.9 10^3/uL (1.0-4.0); LYMPHOCYTES % (AUTO) 22 % (12-44); MEAN CORPUSCULAR HEMOGLOBIN 28 pg (25-34); MEAN CORPUSCULAR HGB CONC 34 g/dL (32-36); MEAN CORPUSCULAR VOLUME 84 fL (80-99); MEAN PLATELET VOLUME 11.3 fL (9.0-12.2); MONOCYTES # (AUTO) 0.6 10^3/uL (0.0-1.0); MONOCYTES % (AUTO) 7 % (0-12); NEUTROPHILS % (AUTO) 68 % (42-75); PLATELET COUNT 218 10^3/uL (130-400); WHITE BLOOD COUNT 8.8 10^3/uL (4.3-11.0)
[2023-02-01 07:07] LABS: BACTERIA,URINE FEW /HPF; SQUAMOUS EPITHELIAL CELL,UR 25-50 /HPF
[2023-02-01] MEDS ORDERED: URSO500T10 (07:38)
[2023-02-01] MEDS: D5 LR IV SOLUTION 1,000 ML IV SCH ×2 (08:05→16:23)
[2023-02-01] MEDS: AMPICILLIN FOR IV USE 1,000 MG in NS (IVPB) 50 ML IV SCH ×3 (12:06→20:22)
[2023-02-01] MEDS ORDERED: CATHETER FLUSH 10 ML SYR IV SCH ×2 (14:00→22:00)
--- NOTE | 2023-02-01 14:07 | Labor Progress Note ---
Labor Progress Note Labor Progress Note Date Seen by Provider: February 01, 2023 Time Seen by Provider: 13:50 Subjective: Pt denies complaints.Contractions are mild to her at this time. Objective: Cervical exam: /- Consistency: soft Position: anterior Presentation: vertex heart tones: 140 beats per minute, moderate variability, reactive Tocometer: 3 ctx/10 minutes Assessment/Plan: Kirsty Bingham is a (37 /Para 10 / 8,Gestational Age (wks)36 here for IOL for intrahepatic cholestasis. AROM at time of exam with clear fluid return. CEFM/TOCO Continue pitocin Anesthesia: none Anticipate vaginal delivery. Vitals - Labs Vital Signs - I&O Vital Signs Date Time Temp Pulse Resp B/P (MAP) Pulse Ox O2 Delivery O2 Flow Rate FiO2 02/01/23 12:03 84 20 109/61 (77) 02/01/23 11:48 85 20 115/64 (81) 02/01/23 11:33 91 20 105/67 (80) 02/01/23 11:18 98 20 112/77 (89) 02/01/23 11:03 92 20 107/73 (84) 02/01/23 10:48 36.1 83 20 114/77 (89) 02/01/23 07:00 36.8 84 20 98 Room Air 02/01/23 07:00 36.3 84 18 120/68 (85) 98 02/01/23 06:56 36.3 88 18 120/68 (85) 99 Labs Laboratory Tests 02/01/23 06:33: White Blood Count 8.8, Red Blood Count 4.01, Hemoglobin 11.4L, Hematocrit 34L, Mean Corpuscular Volume 84, Mean Corpuscular Hemoglobin 28, Mean Corpuscular Hemoglobin Concent 34, Red Cell Distribution Width 14.8H, Platelet Count 218, Mean Platelet Volume 11.3, Immature Granulocyte % (Auto) 1, Neutrophils (%) (Auto) 68, Lymphocytes (%) (Auto) 22, Monocytes (%) (Auto) 7, Eosinophils (%) (Auto) 2, Basophils (%) (Auto) 0, Neutrophils # (Auto) 6.0, Lymphocytes # (Auto) 1.9, Monocytes # (Auto) 0.6, Eosinophils # (Auto) 0.2, Basophils # (Auto) 0.0, Immature Granulocyte # (Auto) 0.1, Urine Color YELLOW, Urine Clarity SL CLOUDY, Urine pH 7.0, Urine Specific [place] 1.015L, Urine Protein NEGATIVE, Urine Glucose (UA) NEGATIVE, Urine Ketones NEGATIVE, Urine Nitrite NEGATIVE, Urine Bilirubin NEGATIVE, Urine Urobilinogen 0.2, Urine Leukocyte Esterase NEGATIVE, Urine RBC (Auto) NEGATIVE, Urine RBC NONE, Urine WBC 2-5, Urine Squamous Epithelial Cells 25-50H, Urine Crystals NONE, Urine Bacteria FEWH, Urine Casts NONE, Urine Mucus NEGATIVE, Urine Culture Indicated NO, Thyroid Stimulating Hormone (TSH) 0.64 FREDI CASTILLO MD February 01, 2023 14:07
[2023-02-01] MEDS ORDERED: LIDOCAINE 1% INJ 10 ML VIAL ONE (19:14)
[2023-02-01] MEDS: OXYTOCIN PRE-MIX DRIP 500 ML IV SCH ×2 (20:30→21:03)
--- NOTE | 2023-02-01 21:49 | OB Labor & Delivery Record ---
Vag Delivery Note Vag Delivery Note Date of Delivery: 02/01/23 Preoperative Diagnosis: Kirsty Bingham is a (37 /Para 10 / 8,Gestational Age (wks)36with 6 days Postoperative Diagnosis: Same Surgeon: FREDI CASTILLO Anesthesia: None Delivery Type: Findings: Viable male , apgars 8/8, weight 6#4 Lacerations: first degree perineal abrasion Intact placenta with 3 vessel cord. No nuchal cord, body cord or shoulder dystocia Estimated Blood Loss: 150 ml Complications: None Condition: Stable Description of Procedure: The patient is a 37 year old female who presented for induction of labor due to intrahepatic cholestasis. She was admitted and informed consent was obtained. Her labor course was uncomplicated. She progressed to complete dilatation and began to push. She was then set up for delivery. The 's head was delivered atraumatically in the SHWETHA position. The shoulders and remainder of the infant's body were then delivered without difficulty. Upon delivery, the infant was vigorous and placed on maternal chest and the mouth and nares were bulb suctioned. After a delay cord was doubly clamped and cut and the remained on maternal chest. An intact placenta with 3-vessel cord delivered via Hazel and there was found to be minimal bleeding.~ Vigorous fundal massage was performed and the fundus was found to be firm. IV oxytocin was given. Examination of the vagina and perineum revealed a first degree perineal abrasion not requiring repair. Following the delivery, sponge, instrument and needle counts were correct. Mom and baby were both in stable condition in the labor suite. Vitals - Labs Vital Signs - I&O Vital Signs Date Time Temp Pulse Resp B/P (MAP) Pulse Ox O2 Delivery O2 Flow Rate FiO2 02/01/23 19:48 98 118/70 (86) Room Air 02/01/23 19:34 90 115/72 (86) Room Air 02/01/23 19:30 36.7 02/01/23 19:19 89 108/57 (74) Room Air 02/01/23 18:35 85 20 102/60 (74) Room Air 02/01/23 18:18 90 20 119/76 (90) Room Air 02/01/23 18:04 88 20 118/73 (88) Room Air 02/01/23 17:49 99 20 130/72 (91) 02/01/23 17:33 84 20 110/64 (79) 02/01/23 17:19 93 20 125/69 (87) 02/01/23 17:03 88 20 120/71 (87) 02/01/23 16:49 91 20 120/67 (84) 02/01/23 16:34 87 20 123/77 (92) 02/01/23 16:19 96 20 120/73 (89) 02/01/23 16:02 100 20 116/70 (85) 02/01/23 15:48 86 20 116/67 (83) 02/01/23 15:33 84 20 111/64 (80) 02/01/23 15:19 83 20 115/67 (83) 02/01/23 15:03 111 20 118/64 (82) 02/01/23 14:49 95 20 123/69 (87) 02/01/23 14:33 99 20 119/67 (84) 02/01/23 14:19 93 20 117/68 (84) 02/01/23 14:04 94 20 117/67 (84) 02/01/23 13:50 88 20 123/69 (87) 02/01/23 13:33 36.2 94 20 119/73 (88) 02/01/23 13:19 92 20 104/59 (74) 02/01/23 13:03 85 20 116/66 (83) 02/01/23 12:48 85 20 114/59 (77) 02/01/23 12:33 78 20 112/62 (79) 02/01/23 12:18 82 20 112/61 (78) 02/01/23 12:03 84 20 109/61 (77) 02/01/23 11:48 85 20 115/64 (81) 02/01/23 11:33 91 20 105/67 (80) 02/01/23 11:18 98 20 112/77 (89) 02/01/23 11:03 92 20 107/73 (84) 02/01/23 10:48 36.1 83 20 114/77 (89) 02/01/23 07:00 36.8 84 20 98 Room Air 02/01/23 07:00 36.3 84 18 120/68 (85) 98 02/01/23 06:56 36.3 88 18 120/68 (85) 99 Labs Laboratory Tests 02/01/23 06:33: White Blood Count 8.8, Red Blood Count 4.01, Hemoglobin 11.4L, Hematocrit 34L, Mean Corpuscular Volume 84, Mean Corpuscular Hemoglobin 28, Mean Corpuscular Hemoglobin Concent 34, Red Cell Distribution Width 14.8H, Platelet Count 218, Mean Platelet Volume 11.3, Immature Granulocyte % (Auto) 1, Neutrophils (%) (Auto) 68, Lymphocytes (%) (Auto) 22, Monocytes (%) (Auto) 7, Eosinophils (%) (Auto) 2, Basophils (%) (Auto) 0, Neutrophils # (Auto) 6.0, Lymphocytes # (Auto) 1.9, Monocytes # (Auto) 0.6, Eosinophils # (Auto) 0.2, Basophils # (Auto) 0.0, Immature Granulocyte # (Auto) 0.1, Urine Color YELLOW, Urine Clarity SL CLOUDY, Urine pH 7.0, Urine Specific [place] 1.015L, Urine Protein NEGATIVE, Urine Glucose (UA) NEGATIVE, Urine Ketones NEGATIVE, Urine Nitrite NEGATIVE, Urine Bilirubin NEGATIVE, Urine Urobilinogen 0.2, Urine Leukocyte Esterase NEGATIVE, Urine RBC (Auto) NEGATIVE, Urine RBC NONE, Urine WBC 2-5, Urine Squamous Epithelial Cells 25-50H, Urine Crystals NONE, Urine Bacteria FEWH, Urine Casts NONE, Urine Mucus NEGATIVE, Urine Culture Indicated NO, Thyroid Stimulating Hormone (TSH) 0.64 FREDI CASTILLO MD February 01, 2023 21:49
[2023-02-01] MEDS ORDERED: SIMETHICONE 80 MG (MYLICON) CHEW PO PRN (22:00)
[2023-02-01] MEDS ORDERED: WITCH HAZEL(TUCKS) 40 EA JAR TOP PRN (22:00)
[2023-02-01] MEDS ORDERED: BENZOCAINE/MENTHOL (DERMOPLAST) 56 ML CAN TP PRN (22:00)
[2023-02-02 00:32] VITALS: BP 131/72
[2023-02-02] MEDS: IBUPROFEN 600 MG (MOTRIN) TAB PO SCH ×3 (00:35→12:05)
[2023-02-02 04:06] VITALS: BP 104/66
[2023-02-02 05:56] LABS: BASOPHILS % (AUTO) 0 % (0-10); EOSINOPHILS # (AUTO) 0.2 10^3/uL (0.0-0.3); EOSINOPHILS % (AUTO) 1 % (0-10); HEMATOCRIT 31 % (35-52); HEMOGLOBIN 10.3 g/dL (11.5-16.0); LYMPHOCYTES # (AUTO) 2.1 10^3/uL (1.0-4.0); LYMPHOCYTES % (AUTO) 16 % (12-44); MEAN CORPUSCULAR HEMOGLOBIN 28 pg (25-34); MEAN CORPUSCULAR HGB CONC 34 g/dL (32-36); MEAN CORPUSCULAR VOLUME 84 fL (80-99); MEAN PLATELET VOLUME 10.9 fL (9.0-12.2); MONOCYTES # (AUTO) 0.9 10^3/uL (0.0-1.0); MONOCYTES % (AUTO) 7 % (0-12); NEUTROPHILS # (AUTO) 10.2 10^3/uL (1.8-7.8); NEUTROPHILS % (AUTO) 76 % (42-75); PLATELET COUNT 216 10^3/uL (130-400); WHITE BLOOD COUNT 13.5 10^3/uL (4.3-11.0)
[2023-02-02] MEDS ORDERED: IBUP-844 PO (06:35)
[2023-02-02] MEDS ORDERED: FERR325T24 PO (06:35)
[2023-02-02] MEDS ORDERED: FERROUS SULF 325 MG (IRON) TAB PO SCH (07:00)
[2023-02-02 08:25] VITALS: BP 102/58
[2023-02-02] MEDS ORDERED: TETANUS,DIPTH,PERTUSS P/F (BOOSTRIX) 0.5 ML VIAL IM ONE (08:59)
[2023-02-02] MEDS ORDERED: DOCUSATE SODIUM 100 MG (COLACE) CAP PO SCH (09:00)
--- NOTE | 2023-02-02 09:49 | Discharge Summary ---
Discharge Summary Hospital Course Hospital Course Date of Admission: February 01, 2023 at 06:03 Admission Diagnosis : Intrahepatic cholestasis of Third trimester 36 weeks gestation Advanced maternal age Grand multiparity Family Physician/Provider: rFedi Jara MD Date of Discharge: 02/02/23 Discharge Diagnosis: S/p spontaneous vaginal delivery Asymptomatic acute blood loss anemia Hospital Course: 37 yo G10 now P9 admitted and underwent IOL for intrahepatic cholestasis, had uncomplicated with uncomplicated course, allowed to d/c after 12 hours due to transferred to NICU, discussed extreme caution and close monitoring regarding hemorrhage risk. Labs and Pending Lab Test: Laboratory Tests 02/02/23 05:46: White Blood Count 13.5H, Red Blood Count 3.66L, Hemoglobin 10.3L, Hematocrit 31L , Mean Corpuscular Volume 84, Mean Corpuscular Hemoglobin 28, Mean Corpuscular Hemoglobin Concent 34, Red Cell Distribution Width 14.8H, Platelet Count 216, Mean Platelet Volume 10.9, Immature Granulocyte % (Auto) 1, Neutrophils (%) (Auto) 76H, Lymphocytes (%) (Auto) 16, Monocytes (%) (Auto) 7, Eosinophils (%) (Auto) 1, Basophils (%) (Auto) 0, Neutrophils # (Auto) 10.2H, Lymphocytes # (Auto) 2.1, Monocytes # (Auto) 0.9, Eosinophils # (Auto) 0.2, Basophils # (Auto) 0.0, Immature Granulocyte # (Auto) 0.1 Home Meds Active Ibu (Ibuprofen) 600 Mg Tablet 600 Mg PO Q6HR PRN Ferosul (Ferrous Sulfate) 325 Mg (65 Mg Iron) Tablet 325 Mg PO DAILY@0700 Reported Vitamins ( Vit W-Ca,Fe,FA(<1 mg)) 1 Each Tablet 1 Each PO DAILY Patient Discharge Instructions Follow up with Dr. Jara in 6 weeks for visit. Activity: Activity as Tolerated (avoid strenuous activity x 6 weeks) Nothing Inside Vagina: No Douching, No [place], No Tampons Discharge Diet: No Restrictions Symptoms to Report to : Bleeding Excessive, Fever Over 101 Degrees F, Pain/Pressure in Chest, Vaginal Bleeding Increase, Vaginal Discharge Foul, Dizziness/Fainting, Shortness of Breath For Any Problems or Questions: Contact Your Physician, Go to Emergency Room Discharge Physical Examination Allergies: Coded Allergies: No Known Drug Allergies (Unverified , 11/17/17) Vitals & I&Os Vital Signs Date Time Temp Pulse Resp B/P (MAP) Pulse Ox O2 Delivery O2 Flow Rate FiO2 02/02/23 08:25 36.5 83 16 102/58 (73) 97 Room Air General Appearance: No Apparent Distress Respiratory: Lungs Clear, Normal Breath Sounds Cardiovascular: Regular Rate, Rhythm, No Edema Gastrointestinal: Normal Bowel Sounds, Soft, Other (fundus firm below umbilicus, nontender) Extremity: No Pedal Edema Skin: Normal Color Neurologic/Psychiatric: Alert, Normal Mood/Affect FREDI JARA MD February 02, 2023 09:49
[2023-02-02 12:20] VITALS: BP 105/69
== END 2023-02-02 14:30 | disposition home or self-care (01) | DRG 805 ==
LOC: LDRP 06:03
PROVIDERS: ADMIT Family Medicine; ATTEND Family Medicine
PROC: 10E0XZZ Delivery of Products of Conception, External Approach (ICD-10-PCS; principal; 2023-02-01)
PROC: 10907ZC Drainage of Amniotic Fluid, Therapeutic from Products of Conception, Via Natural or Artificial Opening (ICD-10-PCS; 2023-02-01)
PROC: 3E033VJ Introduction of Other Hormone into Peripheral Vein, Percutaneous Approach (ICD-10-PCS; 2023-02-01)
DX: O26.62 Liver and biliary tract disorders in childbirth (principal); K83.1 Obstruction of bile duct; Z37.0 Single live birth; O60.14X0 Preterm labor third trimester with preterm delivery third trimester, not applicable or unspecified; D62 Acute posthemorrhagic anemia; O99.284 Endocrine, nutritional and metabolic diseases complicating childbirth; E03.8 Other specified hypothyroidism; O70.0 First degree perineal laceration during delivery; O90.81 Anemia of the puerperium; Z3A.36 36 weeks gestation of pregnancy
CPT/HCPCS: 36415; 81000; 84443; 85025; 86780; 86850; 86900; 86901; 90715